=== PATIENT | female | born 1945 | race Caucasian/White ===

== ENCOUNTER → 2016-12-14 | Outpatient (CLI) | payer OTHER, MEDICARE ==
[~2016-12-14] MED LIST: APR50 PO; CHOL135C6 PO; CLON0.2T11 PO; CYAN500T PO; FLUO20CA35 PO; HYDR-5688 PO; HYDR12.56 PO; Hydrochlorothiazide PO; LEFL10TA PO; NEBI20TA2 PO; POTA20TA16 PO; PRED-301 PO; SPIR50TA2 PO; TPRSR/100 PO; TRAM-10 PO
--- NOTE | 2016-12-14 13:33 | MAMMOGRAPHY REPORT ---
BILATERAL DIGITAL SCREENING MAMMOGRAM WITH CAD: 12/14/2016 CLINICAL HISTORY: Routine screening. Patient has no complaints. TECHNIQUE: Bilateral CC and MLO views were obtained. Current study was also evaluated with a Comput er Aided Detection (CAD) system. COMPARISON: Comparison is made to exams dated: 12/11/2015 mammogram, 12/08/2013 mammogram, 12/10/2014 ma mmogram, 07/02/2011 mammogram - [facility], 01/08/2009, and 01/05/2008. BREAST COMPOSITION: There are scattered areas of fibroglandular density in both breasts. FINDINGS: There are mild to moderate vascular calcifications and diffuse benign rim calcifications a nd rodlike secretory calcifications in the breasts. No suspicious mass, architectural distortion or cluster of suspicious microcalcifications is seen. IMPRESSION: ACR BI-RADS CATEGORY 1: NEGATIVE There is no mammographic evidence of malignancy. A 1 year screening mammogram is recommended. The p atient will receive written notification of the results. Approximately 10% of breast cancers are not detected with mammography. A negative mammographic repor t should not delay biopsy if a clinically suggestive mass is present. Rena Culver M.D. ay/:12/14/2016 12:37:29 [employer] Manager: Viky NATARAJAN(Carlos Alberto)(Jan), [facility] letter sent: Normal 1/2 BI-RADS Code: ACR BI-RADS Category 1: Negative
== END | disposition home or self-care (01) ==
LOC: C.MAMM 10:24
PROVIDERS: ATTEND Family Medicine
DX: Z12.31 Encounter for screening mammogram for malignant neoplasm of breast (principal)

== ENCOUNTER → 2016-12-28 | Outpatient (CLI) | payer OTHER, MEDICARE ==
[2016-12-28 10:10] LABS: HEMATOCRIT 37.3 % (37-47); MEAN CELL VOLUME 92.3 fL (80-100); MEAN CORPUSCULAR HGB CONC 32.4 g/dl (32-36); MEAN PLATELET VOLUME 10.2 fL (7.4-10.4); PLATELET COUNT 248 K/uL (130-400); RED BLOOD COUNT 4.04 M/uL (4.2-5.4); WHITE BLOOD COUNT 6.62 K/uL (4.8-10.8)
[2016-12-28 10:56] LABS: ALT/SGPT 24 U/L (12-78); AST/SGOT 11 U/L (15-37); BLOOD UREA NITROGEN 16 mg/dl (7-18); BUN/CREATININE RATIO 17.5 (10-20); CALCIUM 8.7 mg/dl (8.5-10.1); CARBON DIOXIDE 28 mmol/L (21-32); CHLORIDE 105 mmol/L (98-107); CREATININE 0.91 mg/dl (0.60-1.20); GLUCOSE 107 mg/dl (70-99); POTASSIUM 3.4 mmol/L (3.5-5.1); SODIUM 143 mmol/L (136-145)
[2016-12-28 10:59] LABS: CHOLESTEROL 188 mg/dl (0-200); CHOLESTEROL/HDL RATIO 3.5; HDL CHOLESTEROL 54 mg/dl; PHOSPHORUS 2.4 mg/dl (2.5-4.9); TRIGLYCERIDES 474 mg/dl (0-150)
[2016-12-28 11:02] LABS: URINE TOTAL PROTEIN < 5.0 mg/dl (0-11.9)
[2016-12-28 12:25] LABS: URINE APPEARANCE CLEAR (CLEAR); URINE BILIRUBIN NEG (NEG); URINE COLOR YELLOW; URINE EPITHELIAL CELL AUTO >30 /lpf (0-5); URINE NITRITE POS (NEG); URINE SPECIFIC GRAVITY 1.006 (1.000-1.030); UROBILINOGEN NEG (NEG)
[2016-12-28 12:28] LABS: MANUAL MICROSCOPIC REQUIRED? NO; REVIEW REQ? NO
== END | disposition home or self-care (01) ==
LOC: C.LAB1850 08:59
PROVIDERS: ATTEND Internal Medicine Nephrology
DX: R80.9 Proteinuria, unspecified (principal); I12.9 Hypertensive chronic kidney disease with stage 1 through stage 4 chronic kidney disease, or unspecified chronic kidney disease; N18.3 Chronic kidney disease, stage 3 (moderate); E55.9 Vitamin D deficiency, unspecified; E78.5 Hyperlipidemia, unspecified

== ENCOUNTER 2017-03-22 10:40 | Emergency (ER) | payer OTHER, MEDICARE ==
[~2017-03-22] VITALS: Ht 170.2 cm; Wt 54.1 kg
[~2017-03-22 10:40] MED LIST changes: -HYDR-5688 PO; -HYDR12.56 PO; -POTA20TA16 PO; -PRED-301 PO; -SPIR50TA2 PO; -TPRSR/100 PO; -TRAM-10 PO
[2017-03-22 10:50] VITALS: TEMP 36.9; Ht 170.2 cm; Wt 54.1 kg
[2017-03-22] MEDS ORDERED: APR50 PO (11:10)
[2017-03-22] MEDS ORDERED: HYDR12.56 PO (11:10)
[2017-03-22] MEDS ORDERED: POTA20TA16 PO (11:11)
[2017-03-22] MEDS ORDERED: TPRSR/100 PO (11:11)
[2017-03-22] MEDS ORDERED: TRAM-10 PO (11:12)
[2017-03-22] MEDS ORDERED: SPIR50TA2 PO (11:12)
--- NOTE | 2017-03-22 13:21 | DIAGNOSTIC IMAGING REPORT ---
CT OF THE left hip CT DOSE: 191.63 mGy.cm HISTORY: Hip pain left hip pain, r/o occult fx TECHNIQUE: Multiaxial CT images of the left hip were performed and reformatted in the sagittal and coronal plane without the use of contrast. COMPARISON: None. FINDINGS: No fracture or dislocation. Soft tissues are unremarkable. Subtle cortical lobulation of the left pubic ring felt to be secondary to old posttraumatic change. A well-defined acute bony abnormality is not seen. No evidence for acetabular protrusion. IMPRESSION: Mild degenerative change. No acute bony abnormality. Electronically signed by: Manuel Velasco M.D. 03/22/2017 1:20 PM Dictated Date/Time: 03/22/2017 12:59 PM
[2017-03-22] MEDS ORDERED: HYDR-5688 PO (13:34)
--- NOTE | 2017-03-22 13:36 | EMERGENCY ROOM VISIT NOTE ---
History First contact with patient: 11:14 Chief Complaint: HIP PAIN Stated Complaint: SEVERE HIP PAIN History of Present Illness The patient is a 71 year old female who presents to the Emergency Room with complaints of persistent left hip pain. The patient states that she has had ongoing pain in her left hip for several months. She was initially seen by her primary care provider and had x-rays of the pelvis and hips in September of last year. She states these were negative. She was placed on a course of prednisone at that time and states that did help to relieve her pain. She saw her primary care provider this week due to worsening/persistent pain and was given an injection into the hip 5 days ago without relief of the pain. She was given a prescription for tramadol and states she has been taking this with little relief, though the medication does help her to sleep. She reports pain with weightbearing and has been using a cane to help her ambulate. She rates the discomfort a 10/10, worse with movement and weightbearing. She denies any pain in the back, urinary symptoms, radiation of the pain into the legs, numbness or weakness. Review of Systems A complete 10 point review of systems was reviewed with the patient with pertinent positives and negatives as per history of present illness. All else were negative. Past Medical/Surgical History Medical Problems: (1) Benign hypertension (2) Hyperlipidemia (3) Hysterectomy (4) Lyme disease (5) Psoriasis (6) Psoriatic arthritis (7) Rheumatoid arteritis Family History Diabetes mellitus Hypertension Social History Smoking Status: Never Smoker Drug Use: none Marital Status: Housing Status: lives with family Occupation Status: retired Current/Historical Medications Scheduled Hydralazine HCl (Hydralazine HCl), 100 MG PO TID Hydrochlorothiazide (Hctz), 12.5 MG PO DAILY Leflunomide (Arava), 10 MG PO DAILY/UD Metoprolol Succinate (Metoprolol Succinate ER), 100 MG PO DAILY Potassium Ext Rel (Klor-Con), 20 MEQ PO BID Prednisone (Prednisone), 5 MG PO DAILY Spironolactone (Aldactone), 50 MG PO QAM Scheduled PRN Hydrocodone/Acetaminophen 5MG/325MG (Cleveland 5MG/325MG), 1 TABLET PO Q4H PRN for Pain Tramadol (Ultram), 50-100 MG PO 4-6h PRN for Pain Allergies Coded Allergies: Fentanyl (Verified Allergy, Unknown, throat closed,itchy, 03/22/17) pt Sulfa Drugs (Verified Allergy, Unknown, 03/22/17) Physical Exam Vital Signs Date Time Temp Pulse Resp B/P Pulse Ox O2 Delivery O2 Flow Rate FiO2 03/22/17 13:50 59 20 159/73 97 03/22/17 13:25 59 20 159/73 97 03/22/17 12:00 53 20 168/70 98 03/22/17 10:50 36.9 67 18 152/76 94 Room Air Physical Exam VITALS: Vitals are noted on the nurse's note and reviewed by myself. Vital signs stable. GENERAL: This is a 71-year-old female, in no acute distress, nondiaphoretic, well-developed well-nourished. SKIN: Capillary reflex less than 2 seconds. No erythema or edema. HEART: Regular rate and rhythm without murmurs gallops or rubs. LUNGS: Clear to auscultation bilaterally without wheezes, rales or rhonchi. ABDOMEN: Soft, nontender. MUSCULOSKELETAL: There is tenderness over the left lateral hip. There is no erythema, edema or ecchymosis. Full range of motion of the hip and lower leg. Strength 5/5 in bilateral lower extremity. There is no tenderness to palpation over the lumbar spinous processes or lumbar paraspinous muscles. NEURO: Patient was alert and oriented to person place and time. Normal sensation to light and sharp touch over bilateral lower extremities. Deep tendon reflexes 2+ throughout. Medical Decision & Procedures ER Provider Diagnostic Interpretation: CT OF THE left hip FINDINGS: No fracture or dislocation. Soft tissues are unremarkable. Subtle cortical lobulation of the left pubic ring felt to be secondary to old posttraumatic change. A well-defined acute bony abnormality is not seen. No evidence for acetabular protrusion. IMPRESSION: Mild degenerative change. No acute bony abnormality. ED Course The patient was evaluated as above. Patient was reevaluated and findings discussed. The patient was given a walker. Discharge instructions were reviewed with the patient. The patient verbalized understanding of my assessment and treatment plan and was discharged home in good condition. Medical Decision Differential diagnosis includes fracture, lumbar radiculopathy, bursitis, septic joint, arthritis, among others. The patient is a 71-year-old female who presents today complaining of chronic left hip pain. There is tenderness on exam but no neuro findings, no tenderness of the lumbar spine. Patient had pelvic and hip x-rays in September 2016 which were essentially negative. CT scan was obtained of the left hip to rule out occult fracture and was read by radiology with no acute findings. The patient likely has bursitis and I do feel she should be referred to orthopedics for further evaluation and treatment. She states she has a follow-up appointment with her primary care provider this week and I recommended that she talk to them about an orthopedic referral. She was given a short course of Cleveland to take in the meantime. She will return here for worsening or new/ concerning symptoms. The patient's case was reviewed with Dr. Bradshaw, ED attending physician, who agreed with my assessment and treatment plan. Based on the patient's presentation and work up, I feel the patient is stable for outpatient treatment. The patient was educated to return to the emergency department for any worsening of their current condition or new/concerning symptoms. She will follow up with her PCP and orthopedics. Impression Primary Impression: Left hip pain Departure Information Dispostion Home / Self-Care Condition GOOD Prescriptions Hydrocodone/Acetaminophen 5MG/325MG (Cleveland 5MG/325MG) Tab 1 TABLET PO Q4H Y for Pain, #15 TAB For Initial Treatment Prov: Quita Clement .ALIRIO 03/22/17 Referrals Alexandra Wilkes MD (PCP) Osorio Ibrahim, DO Patient Instructions My [facility] Additional Instructions You have been treated in the Emergency Department for left hip Pain. You have been prescribed Cleveland to be used for pain control. This is a narcotic medication. You cannot drive or consume alcohol while on this medicine. This medicine should only be used for pain that cannot be controlled with over-the- counter pain medicines. Take one half to one tablet every 4-6 hours as needed for the pain. You should schedule a follow-up appointment in 2-3 days with your Primary Care Provider for further evaluation and treatment of your pain. They may refer you to an rn orthopedic. Return to the Emergency Department if your current symptoms worsen despite treatment course outlined above, or if you develop any of the following symptoms : intractable pain despite aforementioned treatment course, loss of control of your bowel or bladder, numbness or tingling in your groin, or development of a fever.
[2017-03-22 13:50] VITALS: BP 159/73; PULSE 59; O2SAT 97
[2017-03-22] MEDS ORDERED: PRED-301 PO (14:56)
== END 2017-03-22 13:50 | disposition home or self-care (01) ==
LOC: C.EDB 10:42
DX: M25.552 Pain in left hip (principal); I10 Essential (primary) hypertension; E78.5 Hyperlipidemia, unspecified; Z90.710 Acquired absence of both cervix and uterus; L40.9 Psoriasis, unspecified; A69.20 Lyme disease, unspecified; M06.9 Rheumatoid arthritis, unspecified; Z83.3 Family history of diabetes mellitus; Z82.49 Family history of ischemic heart disease and other diseases of the circulatory system; Z79.899 Other long term (current) drug therapy

== ENCOUNTER → 2017-05-13 | Outpatient (CLI) | payer OTHER, MEDICARE ==
[~2017-05-13] MED LIST changes: -APR50 PO; -CHOL135C6 PO; -CLON0.2T11 PO; -CYAN500T PO; -FLUO20CA35 PO; +HYDR12.56 PO; -Hydrochlorothiazide PO; -NEBI20TA2 PO; +POTA20TA16 PO; +PRED-301 PO; +TPRSR/100 PO
[2017-05-13 12:19] LABS: BASO % 0.6 %; BASO ABS # 0.05 K/uL (0-0.2); COMPLETE YES; HEMATOCRIT 40.2 % (37-47); IG% 0.3 %; LYMPH % 8.2 %; LYMPH ABS # 0.72 K/uL (1.2-3.4); MEAN CELL VOLUME 95.5 fL (80-100); MEAN CORPUSCULAR HEMOGLOBIN 30.2 pg (25-34); MEAN CORPUSCULAR HGB CONC 31.6 g/dl (32-36); MEAN PLATELET VOLUME 10.5 fL (7.4-10.4); MONO % 6.2 %; NEUT % 84.7 %; PLATELET COUNT 345 K/uL (130-400); RED BLOOD COUNT 4.21 M/uL (4.2-5.4); WHITE BLOOD COUNT 8.77 K/uL (4.8-10.8)
[2017-05-13 13:01] LABS: ALT/SGPT 34 U/L (12-78); AST/SGOT 23 U/L (15-37); CREATININE 0.86 mg/dl (0.60-1.20)
[2017-05-13 13:04] LABS: ALKALINE PHOSPHATASE 80 U/L (45-117)
== END | disposition home or self-care (01) ==
LOC: C.LAB1850 10:57
PROVIDERS: ATTEND Physician Assistant
DX: Z51.81 Encounter for therapeutic drug level monitoring (principal); Z79.899 Other long term (current) drug therapy

== ENCOUNTER → 2017-06-08 | Outpatient (CLI) | payer OTHER, MEDICARE ==
[2017-06-08 17:45] LABS: BASO % 0.3 %; BASO ABS # 0.02 K/uL (0-0.2); HEMATOCRIT 39.3 % (37-47); IG% 0.3 %; LYMPH ABS # 0.67 K/uL (1.2-3.4); MEAN CELL VOLUME 94.7 fL (80-100); MEAN CORPUSCULAR HEMOGLOBIN 30.1 pg (25-34); MONO % 7.3 %; NEUT % 83.1 %; PLATELET COUNT 318 K/uL (130-400); RED BLOOD COUNT 4.15 M/uL (4.2-5.4); WHITE BLOOD COUNT 7.41 K/uL (4.8-10.8)
[2017-06-08 17:59] LABS: URINE APPEARANCE CLEAR (CLEAR); URINE BILIRUBIN NEG (NEG); URINE COLOR YELLOW; URINE NITRITE POS (NEG); URINE SPECIFIC GRAVITY 1.012 (1.000-1.030); UROBILINOGEN NEG (NEG)
[2017-06-08 18:03] LABS: BLOOD UREA NITROGEN 21 mg/dl (7-18); BUN/CREATININE RATIO 18.8 (10-20); CALCIUM 9.3 mg/dl (8.5-10.1); CARBON DIOXIDE 29 mmol/L (21-32); CHLORIDE 105 mmol/L (98-107); GLUCOSE 134 mg/dl (70-99); SODIUM 139 mmol/L (136-145)
[2017-06-08 18:04] LABS: PHOSPHORUS 2.5 mg/dl (2.5-4.9); URINE PROTIEN/CREAT RATIO 0.1 (0-0.2); URINE TOTAL PROTEIN 7.3 mg/dl (0-11.9)
[2017-06-08 18:24] LABS: MANUAL MICROSCOPIC REQUIRED? NO; REVIEW REQ? NO
[2017-06-08 18:59] LABS: COMPLETE YES; MEAN CORPUSCULAR HGB CONC 31.8 g/dl (32-36)
== END | disposition home or self-care (01) ==
LOC: C.LAB1850 17:26
PROVIDERS: ATTEND Physician Assistant
DX: Z01.818 Encounter for other preprocedural examination (principal); R80.9 Proteinuria, unspecified; I12.9 Hypertensive chronic kidney disease with stage 1 through stage 4 chronic kidney disease, or unspecified chronic kidney disease; N18.3 Chronic kidney disease, stage 3 (moderate); E55.9 Vitamin D deficiency, unspecified

== ENCOUNTER → 2017-06-21 | Outpatient (CLI) | payer OTHER, MEDICARE ==
[2017-06-21 12:37] LABS: BASO % 0.4 %; BASO ABS # 0.04 K/uL (0-0.2); COMPLETE YES; IG% 0.3 %; LYMPH % 8.5 %; LYMPH ABS # 0.87 K/uL (1.2-3.4); MEAN CELL VOLUME 95.2 fL (80-100); MEAN CORPUSCULAR HEMOGLOBIN 30.1 pg (25-34); MEAN CORPUSCULAR HGB CONC 31.6 g/dl (32-36); MEAN PLATELET VOLUME 10.7 fL (7.4-10.4); MONO % 8.8 %; PLATELET COUNT 305 K/uL (130-400); RED BLOOD COUNT 3.99 M/uL (4.2-5.4); WHITE BLOOD COUNT 10.22 K/uL (4.8-10.8)
== END | disposition home or self-care (01) ==
LOC: C.LAB1850 10:33
PROVIDERS: ATTEND Anesthesiology
DX: Z01.812 Encounter for preprocedural laboratory examination (principal)

== ENCOUNTER → 2017-08-10 | Outpatient (CLI) | payer OTHER, MEDICARE ==
--- NOTE | 2017-08-10 11:44 | DIAGNOSTIC IMAGING REPORT ---
CHEST 2 VIEWS ROUTINE CLINICAL HISTORY: 71 years-old Female presenting with R06.02 Shortness of [id number]. TECHNIQUE: PA and lateral views of the chest were obtained. COMPARISON: 05/28/2015. FINDINGS: Atherosclerosis of aortic arch. Chronic silhouette normal in size. Lungs and pleural spaces clear. Degenerative changes of the thoracic spine. Upper abdomen normal. IMPRESSION: 1. No acute cardiopulmonary disease. Electronically signed by: Kendall Al M.D. 08/10/2017 11:42 AM Dictated Date/Time: 08/10/2017 11:42 AM
== END | disposition home or self-care (01) ==
LOC: C.RAD1850 10:56
PROVIDERS: ATTEND Neuromusculoskeletal Medicine & OMM
DX: R53.83 Other fatigue (principal); R06.02 Shortness of breath

== ENCOUNTER → 2017-10-27 | Outpatient (CLI) | payer OTHER, MEDICARE ==
[2017-10-27 17:40] LABS: BASO ABS # 0.06 K/uL (0-0.2); COMPLETE YES; HEMATOCRIT 39.3 % (37-47); IG% 0.3 %; LYMPH % 16.5 %; LYMPH ABS # 0.95 K/uL (1.2-3.4); MEAN CELL VOLUME 93.8 fL (80-100); MEAN CORPUSCULAR HEMOGLOBIN 30.5 pg (25-34); MEAN CORPUSCULAR HGB CONC 32.6 g/dl (32-36); MEAN PLATELET VOLUME 10.2 fL (7.4-10.4); MONO % 14.9 %; NEUT % 67.3 %; PLATELET COUNT 240 K/uL (130-400); RED BLOOD COUNT 4.19 M/uL (4.2-5.4); WHITE BLOOD COUNT 5.76 K/uL (4.8-10.8)
[2017-10-27 18:10] LABS: ALT/SGPT 31 U/L (12-78); BLOOD UREA NITROGEN 15 mg/dl (7-18); BUN/CREATININE RATIO 17.4 (10-20); CALCIUM 9.2 mg/dl (8.5-10.1); CARBON DIOXIDE 26 mmol/L (21-32); CHLORIDE 103 mmol/L (98-107); CREATININE 0.84 mg/dl (0.60-1.20); GLUCOSE 110 mg/dl (70-99); POTASSIUM 3.5 mmol/L (3.5-5.1); SODIUM 137 mmol/L (136-145)
[2017-10-27 18:21] LABS: ALB/GLOB RATIO 0.8 (0.9-2); ALKALINE PHOSPHATASE 88 U/L (45-117); AST/SGOT 23 U/L (15-37); THYROID STIMULATING HORMONE 0.755 uIu/ml (0.300-4.500)
[2017-10-28 06:40] LABS: ESTIMATED AVERAGE GLUCOSE 105 mg/dl; HA1C FLAG Normal (Normal)
[2017-10-28 11:46] LABS: URINE APPEARANCE CLEAR (CLEAR); URINE BILIRUBIN NEG (NEG); URINE COLOR YELLOW; URINE NITRITE POS (NEG); URINE SPECIFIC GRAVITY 1.013 (1.000-1.030); UROBILINOGEN NEG (NEG)
[2017-10-28 11:49] LABS: MANUAL MICROSCOPIC REQUIRED? NO; REVIEW REQ? NO
== END | disposition home or self-care (01) ==
LOC: C.LAB1850 17:10
PROVIDERS: ATTEND Nurse Practitioner Adult Health
DX: R35.0 Frequency of micturition (principal); R06.02 Shortness of breath; R73.9 Hyperglycemia, unspecified; I49.9 Cardiac arrhythmia, unspecified

== ENCOUNTER → 2017-10-28 | Outpatient (CLI) | payer OTHER, MEDICARE ==
[~2017-10-28] MED LIST changes: +AZIT-57 PO; +CEPH500C2 PO; +HYDR-4717 PO; +IBUP-1105 PO; +LPT20 PO; +RBTUDL5 PO; +VNTHFA/IN INH
--- NOTE | 2017-10-28 09:07 | DIAGNOSTIC IMAGING REPORT ---
CHEST 2 VIEWS ROUTINE CLINICAL HISTORY: R05 [id number] COMPARISON STUDY: 08/10/2017 FINDINGS: The cardiac and mediastinal contours are normal. There is no evidence of focal pulmonary consolidation. There is no evidence of failure. No pleural effusions are visualized.[ IMPRESSION: No active disease in the chest. Electronically signed by: Dorian Van M.D. 10/28/2017 9:06 AM Dictated Date/Time: 10/28/2017 9:05 AM
== END | disposition home or self-care (01) ==
LOC: C.RAD1850 08:29
PROVIDERS: ATTEND Nurse Practitioner Adult Health
DX: R05 Cough (principal)

== ENCOUNTER → 2017-10-28 | Outpatient (CLI) | payer OTHER, MEDICARE ==
[~2017-10-28] MED LIST changes: +OPTIRAY 320 IV PRN; +POTA-639 PO; -POTA20TA16 PO
--- NOTE | 2017-10-28 16:24 | DIAGNOSTIC IMAGING REPORT ---
(CHEST FOR PE) ANGIO WITH CLINICAL HISTORY: 71 years-old Female presenting with shortness of breath, elevated d-dimer, left-sided chest pain, cough, clinical concern for pulmonary embolus. TECHNIQUE: Multidetector CT angiography of the chest was performed after administration of intravenous contrast. 3-D volumetric and/or maximum intensity projection (MIP) images were subsequently reconstructed for review. IV contrast: 84 mL of Optiray 320. A dose lowering technique was used consistent with the principles of ALARA (as low as reasonably achievable). COMPARISON: Chest x-ray performed earlier the same day. CT DOSE (mGy.cm): The estimated cumulative dose is 271.11 mGy.cm. FINDINGS: Refinisher topogram: Unremarkable. Pulmonary vasculature: The study is adequate for assessment of the pulmonary vascular tree. No filling defect within the pulmonary arteries to suggest embolus. Main pulmonary artery is not enlarged. No flattening of the interventricular septum. No intracardiac intracardiac filling defect. No reflux of contrast into the hepatic veins. Remaining chest: On soft tissue windows, normal thyroid and thoracic inlet. No axillary, supraclavicular, hilar, or mediastinal lymphadenopathy. Atherosclerosis of the aorta. Mild multichamber enlargement of the heart. Trace coronary artery calcification. No pericardial or pleural effusion. Hepatic steatosis. On lung windows, minimal biapical reticular change likely scarring. Dependent opacities likely atelectasis. Respiratory motion artifact at the lung bases somewhat limits evaluation of lung parenchyma. Minimal groundglass opacity in the lingula may also represent atelectasis. Large airways patent. On bone windows, degenerative changes of the spine. Osteopenia. IMPRESSION: 1. No evidence of pulmonary embolus. No acute intrathoracic pathology. Dependent opacities likely atelectasis. 2. Mild cardiomegaly. 3. Hepatic steatosis. 4. Osteopenia. Electronically signed by: Kendall Al M.D. 10/28/2017 4:22 PM Dictated Date/Time: 10/28/2017 4:17 PM
== END | disposition home or self-care (01) ==
LOC: C.CTS 16:00
PROVIDERS: ATTEND Family Medicine
DX: R06.02 Shortness of breath (principal); R79.89 Other specified abnormal findings of blood chemistry; I51.7 Cardiomegaly; K76.0 Fatty (change of) liver, not elsewhere classified; M85.88 Other specified disorders of bone density and structure, other site; R05 Cough

== ENCOUNTER 2017-10-29 23:42 | Observation (INO) | payer OTHER, MEDICARE ==
[~2017-10-29] VITALS: Ht 170.2 cm; Wt 67.8 kg
[~2017-10-29 23:42] MED LIST changes: -AZIT-57 PO; -CEPH500C2 PO; -HYDR-4717 PO; -IBUP-1105 PO; -LPT20 PO; -OPTIRAY 320 IV PRN; -POTA-639 PO; +POTA20TA16 PO; -RBTUDL5 PO; -VNTHFA/IN INH
[2017-10-30] MEDS ORDERED: ALBUT/IPRATROP 3MG/0.5MG NEB 3 ML VIAL INH STA (00:07)
[2017-10-30 00:32] LABS: BASO % 0.7 %; BASO ABS # 0.06 K/uL (0-0.2); HEMATOCRIT 35.4 % (37-47); HEMOGLOBIN 11.8 g/dL (12.0-16.0); IG# 0.02 K/uL (0.00-0.02); MEAN CELL VOLUME 91.9 fL (80-100); MEAN CORPUSCULAR HEMOGLOBIN 30.6 pg (25-34); MEAN CORPUSCULAR HGB CONC 33.3 g/dl (32-36); MEAN PLATELET VOLUME 9.9 fL (7.4-10.4); MONO % 13.4 %; NEUT % 66.7 %; NEUT ABS # 5.99 K/uL (1.4-6.5); PLATELET COUNT 215 K/uL (130-400); RED CELL DISTRIBUTION WIDTH CV 14.2 % (11.5-14.5); RED CELL DISTRIBUTION WIDTH SD 47.8 fL (36.4-46.3); WHITE BLOOD COUNT 8.97 K/uL (4.8-10.8)
[2017-10-30 00:49] LABS: ALBUMIN 2.8 gm/dl (3.4-5.0); ALT/SGPT 36 U/L (12-78); AST/SGOT 34 U/L (15-37); BLOOD UREA NITROGEN 21 mg/dl (7-18); CALCIUM 8.8 mg/dl (8.5-10.1); CARBON DIOXIDE 24 mmol/L (21-32); GLUCOSE 100 mg/dl (70-99); LIPASE 116 U/L (73-393); POTASSIUM 2.9 mmol/L (3.5-5.1); SODIUM 137 mmol/L (136-145)
[2017-10-30 01:01] LABS: ALKALINE PHOSPHATASE 87 U/L (45-117); TOTAL PROTEIN 6.9 gm/dl (6.4-8.2)
[2017-10-30] MEDS ORDERED: POTASSIUM CHLORIDE 10 MEQ TABCR PO STA (01:13)
[2017-10-30] MEDS ORDERED: MAGNESIUM SULFATE 1GM / D5W 1 GM BAG IV STA (01:13)
[2017-10-30] MEDS ORDERED: HYDR-4717 PO (01:30)
[2017-10-30] MEDS ORDERED: CEPH500C2 PO (01:35)
[2017-10-30] MEDS ORDERED: NITROGLYCERIN 0.4 MG SL PER TAB CHARGE SL STA ×2 (01:43→02:02)
[2017-10-30] MEDS ORDERED: MAGNESIUM HYDROXIDE SUSP 30 ML UDC PO PRN (02:15)
[2017-10-30] MEDS ORDERED: NITROGLYCERIN 0.4 MG SL PER TAB CHARGE SL PRN (02:15)
[2017-10-30] MEDS ORDERED: ACETAMINOPHEN 325 MG TAB PO PRN (02:15)
[2017-10-30] MEDS ORDERED: ONDANSETRON INJ 2 MG/ML 2 ML VIAL IV PRN (02:15)
[2017-10-30] MEDS ORDERED: ALUMINUM/MAGNESIUM/SIMETH (MAALOX MAX) 30 ML UDC PO PRN (02:15)
[2017-10-30] MEDS ORDERED: MoRPHine SULFATE 2 MG/ML CARP IV PRN (02:15)
[2017-10-30] MEDS ORDERED: IV FLUIDS COMPLETED PRN (03:00)
[2017-10-30 03:14] VITALS: BP 169/72; PULSE 72; TEMP 36.7; O2SAT 97; Ht 170.2 cm; Wt 67.8 kg
--- NOTE | 2017-10-30 03:23 | History and Physical ---
History & Physical Date & Time of Service: Oct 30, 2017 at 03:01 Chief Complaint: Shortness Of Breath Primary Care Physician: Alexandra Wilkes MD History of Present Illness Source: patient 71 y/o F Hx Psoriatic arthritis, HTN, HPL. Presents with persistent SOB and intermittent central CP for 1-2 weeks. She was instructed to attend the ER by her primary MD earlier in the day. She denies any radiation of her pain, nausea /vomiting or diaphoresis. The pt's pain resolved entirely with a single SL NTG and she reports improvement in her SOB as well. She states she had a stress test 2 years ago which showed a "valve problem" and was otherwise normal. Past Medical/Surgical History 1) HTN 2) HPL 3) Psoriatic arhtritis 4) Lyme disease 5) Sciatica - received Lumbar steroid injections 06/24 with excellent results 6) Renal artey stenosis - B/L stents placed in 2013 Family History Diabetes mellitus Hypertension Social History Smoking Status: Never Smoker Drug Use: none Marital Status: Housing status: lives with family Occupational Status: retired Multi-Drug Resistant Organisms History of MDRO: No Allergies Coded Allergies: Fentanyl (Verified Allergy, Unknown, throat closed,itchy, 06/09/17) pt Sulfa Drugs (Verified Allergy, Unknown, 06/09/17) Home Medications Scheduled Cephalexin Monohydrate (Keflex), 500 MG PO BID Hydralazine Hcl (Apresoline), 100 MG PO TID Hydrochlorothiazide (Hctz), 12.5 MG PO DAILY Leflunomide (Arava), 10 MG PO DAILY/UD Metoprolol Succinate (Metoprolol Succinate ER), 100 MG PO DAILY Potassium Ext Rel (Klor-Con), 20 MEQ PO BID Prednisone (Prednisone), 5 MG PO DAILY Review of Systems Constitutional: No fever, No chills, No sweats Eyes: No worsening of vision ENT: No hearing loss, No unusual epistaxis, No nasal symptoms Respiratory: + shortness of breath, + dyspnea on exertion, + dyspnea at rest, No cough, No sputum, No wheezing Cardiovascular: + chest pain, No orthopnea, No PND Abdomen: No pain, No nausea, No vomiting Musculoskeletal: + problem reported (Chronic low back pain), No joint pain Genitourinary - Female: No dysuria, No urinary frequency, No urinary urgency Neurologic: No memory loss, No paralysis, No weakness Psychiatric: No depression symptoms Endocrine: No fatigue Hematologic / Lymphatic: No abnormal bleeding/bruising Integumentary: No rash Allergic / Immunologic: No environmental allergies Physical Exam Vital Signs Date Time Temp Pulse Resp B/P (MAP) Pulse Ox O2 Delivery O2 Flow Rate FiO2 10/30/17 02:13 72 20 133/57 92 Room Air 10/30/17 01:57 69 20 135/48 94 Room Air 10/30/17 01:48 74 20 155/70 94 Room Air 10/30/17 00:42 75 16 91 Room Air 10/30/17 00:36 140/79 10/30/17 00:21 73 10/30/17 00:21 98 Room Air 10/30/17 00:18 Room Air 10/29/17 23:51 36.8 79 22 134/77 95 Room Air General Appearance: WD/WN, no apparent distress Head: normocephalic Eyes: normal inspection ENT: normal ENT inspection, hearing grossly normal Neck: supple, no JVD Respiratory/Chest: chest non-tender, lungs clear, normal breath sounds Cardiovascular: regular rate, rhythm, no edema, no gallop Abdomen/GI: normal bowel sounds, non tender, soft Back: normal inspection, no CVA tenderness Extremities/Musculoskelatal: normal inspection, no calf tenderness, normal capillary refill, no pedal edema, normal range of motion 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, no motor/sensory deficits, alert, oriented x 3 Skin: normal color, warm/dry, no rash Diagnostics Laboratory Results Results Past 24 Hours Test 10/30/17 00:22 10/30/17 00:26 Range/Units White Blood Count 8.97 4.8-10.8 K/uL Red Blood Count 3.85 4.2-5.4 M/uL Hemoglobin 11.8 12.0-16.0 g/dL Hematocrit 35.4 37-47 % Mean Corpuscular Volume 91.9 80-100 fL Mean Corpuscular Hemoglobin 30.6 25-34 pg Mean Corpuscular Hemoglobin Concent 33.3 32-36 g/dl Platelet Count 215 130-400 K/uL Mean Platelet Volume 9.9 7.4-10.4 fL Neutrophils (%) (Auto) 66.7 % Lymphocytes (%) (Auto) 19.0 % Monocytes (%) (Auto) 13.4 % Eosinophils (%) (Auto) 0.0 % Basophils (%) (Auto) 0.7 % Neutrophils # (Auto) 5.99 1.4-6.5 K/uL Lymphocytes # (Auto) 1.70 1.2-3.4 K/uL Monocytes # (Auto) 1.20 0.11-0.59 K/uL Eosinophils # (Auto) 0.00 0-0.5 K/uL Basophils # (Auto) 0.06 0-0.2 K/uL RDW Standard Deviation 47.8 36.4-46.3 fL RDW Coefficient of Variation 14.2 11.5-14.5 % Immature Granulocyte % (Auto) 0.2 % Immature Granulocyte # (Auto) 0.02 0.00-0.02 K/uL Sodium Level 137 136-145 mmol/L Potassium Level 2.9 3.5-5.1 mmol/L Chloride Level 104 98-107 mmol/L Carbon Dioxide Level 24 21-32 mmol/L Anion Gap 9.0 3-11 mmol/L Blood Urea Nitrogen 21 7-18 mg/dl Creatinine 1.10 0.60-1.20 mg/dl Est Creatinine Clear Calc Drug Dose 44.3 ml/min Estimated GFR () 57.7 Estimated GFR (Non- 49.8 BUN/Creatinine Ratio 19.3 10-20 Random Glucose 100 70-99 mg/dl Calcium Level 8.8 8.5-10.1 mg/dl Magnesium Level 1.7 1.8-2.4 mg/dl Total Bilirubin 0.3 0.2-1 mg/dl Direct Bilirubin < 0.1 0-0.2 mg/dl Aspartate Amino Transf (AST/SGOT) 34 15-37 U/L Alanine Aminotransferase (ALT/SGPT) 36 12-78 U/L Alkaline Phosphatase 87 45-117 U/L Total Protein 6.9 6.4-8.2 gm/dl Albumin 2.8 3.4-5.0 gm/dl Lipase 116 73-393 U/L Thyroid Stimulating Hormone (TSH) 1.020 0.300-4.500 uIu/ml Bedside Troponin I < 0.030 0-0.045 ng/ml CXR normal EKG NSR - T wave flattening in inferior and lat leads Impression Assessment and Plan 71 y/o F Hx Psoriatic arthritis, HTN, HPL. Presents with persistent SOB and intermittent central CP for 1-2 weeks. She was instructed to attend the ER by her primary MD earlier in the day. She denies any radiation of her pain, nausea /vomiting or diaphoresis. The pt's pain resolved entirely with a single SL NTG and she reports improvement in her SOB as well. She states she had a stress test 2 years ago which showed a "valve problem" and was otherwise normal. 1) CP/SOB - she has several cardiac risk factors and possibly an abnormal EKG which is pending repeat. Additionally, she reports complete resolution with NTG. We will assign her to telemetry and obtain serial enzymes. We will request that her electric operator see her to determine if additional stress testing would be merited at this time. An echo has been ordered as she does state she had a "valve problem". She will be placed on ASA and a Statin and continue Metoprolol. She is not currently tachycardic and does not have 02 demands. We cannot exclude PE from the diagnosis due to her history. A D Dimer is ordered 2) Psoriatic arthritis - she is prescribed Leflunomide and is in the process of transitioning to Cimzia. She receives 5mg prednisone daily as well. 3) HTN - has been difficult to control - will remain on Metoprolol, HCTZ, Hydralazine. 4) HPL - listed in chart - not treated - may be sensitive to Statins. Full code - Heparin prophylaxis Total time for this admit including review of labs, meds, imaging, EKG - discussion with pt and ER attending - 35 min Level of Care Telemetry Resuscitation Status FULL RESUSCITATION VTE Prophylaxis VTE Risk Assessment Done? Y/N: Yes Risk Level: Moderate Given or contraindicated: Unfractionated heparin SQ
--- NOTE | 2017-10-30 03:41 | EMERGENCY ROOM VISIT NOTE ---
History First contact with patient: 23:55 Chief Complaint: SHORTNESS OF BREATH Stated Complaint: CHEST PAIN, SHORTNESS OF BREATH Nursing Triage Summary: Pt states she has had SOB x 2 months or longer. Pt also having upper abdomenal pain. Pt has been following up with her PCP for her sx's and he recommended she come to ED for further evaluation. History of Present Illness The patient is a 71 year old female who presents to the Emergency Room with complaints of increasing dyspnea on exertion for the past few weeks who has seen the family care doctor and had a negative CTA a few days ago and unchanged EKG per patient. Patient has a scheduled echo on November [address] Qureshi. No recent stress test or echo. No prior heart disease. Patient does not smoke. Patient states the past several days she's had intermittent chest pain throughout her mid chest. Nothing makes it better or worse. Described as tightness. It does not radiate. Patient denies fever, chills, diaphoresis, productive cough, abdominal pain, vomiting, diarrhea, leg pain or swelling, recent travel. No prior heart disease. Patient's family care DrDimitrios advised her to go the ER for ongoing symptoms. Review of Systems See HPI for pertinent positives & negatives. A total of 10 systems reviewed and were otherwise negative. Past Medical/Surgical History Medical Problems: (1) Benign hypertension (2) Chest pain (3) Hyperlipidemia (4) Hysterectomy (5) Lyme disease (6) Psoriasis (7) Psoriatic arthritis (8) Rheumatoid arteritis (9) SOB (shortness of breath) Family History Diabetes mellitus Hypertension Social History Smoking Status: Never Smoker Smokeless Tobacco Use: No Drug Use: none Marital Status: Housing Status: lives with family Occupation Status: retired Current/Historical Medications Scheduled Cephalexin Monohydrate (Keflex), 500 MG PO BID Hydralazine Hcl (Apresoline), 100 MG PO TID Hydrochlorothiazide (Hctz), 12.5 MG PO DAILY Leflunomide (Arava), 10 MG PO DAILY/UD Metoprolol Succinate (Metoprolol Succinate ER), 100 MG PO DAILY Potassium Ext Rel (Klor-Con), 20 MEQ PO BID Prednisone (Prednisone), 5 MG PO DAILY Physical Exam Vital Signs Date Time Temp Pulse Resp B/P (MAP) Pulse Ox O2 Delivery O2 Flow Rate FiO2 10/30/17 02:13 72 20 133/57 92 Room Air 10/30/17 01:57 69 20 135/48 94 Room Air 10/30/17 01:48 74 20 155/70 94 Room Air 10/30/17 00:42 75 16 91 Room Air 10/30/17 00:36 140/79 10/30/17 00:21 73 10/30/17 00:21 98 Room Air 10/30/17 00:18 Room Air 10/29/17 23:51 36.8 79 22 134/77 95 Room Air Physical Exam VITALS: Vitals are noted on the nurse's note and reviewed by myself. Vital signs stable. GENERAL: Pleasant female, in no acute distress, nondiaphoretic, well-developed well-nourished. SKIN: The skin was without rashes, erythema, edema, or bruising. There is no tenting of the skin. Capillary reflex less than 2 seconds. HEAD: Normocephalic atraumatic. EARS: External auditory canals clear, tympanic membranes pearly hamlin without erythema or effusion bilaterally. EYES: Pupils equal round and reactive to light and accommodation. Conjunctivae without injection, sclerae without icterus. Extraocular movements intact. NOSE: Patent, turbinates without inflammation or discharge. MOUTH: Mucous membranes moist. Pharynx without erythema or exudate. Uvula midline. Airway patent. Tongue does not deviate. NECK: Supple without nuchal rigidity. No lymphadenopathy. No thyromegaly. Cervical spine is nontender. No JVD. HEART: Regular rate and rhythm LUNGS: Clear to auscultation bilaterally without wheezes, rales or rhonchi. No dullness to percussion. No retractions or accessory muscle use. ABDOMEN: Positive bowel sounds x 4. Normal tympanic percussion. Soft, nontender, without masses or organomegaly. Kelly sign negative. No guarding or rebound tenderness. MUSCULOSKELETAL: No muscle atrophy, erythema, or edema noted. NEURO: Patient was alert and oriented to person place and time. Normal sensation to light and sharp touch. No focal neurological deficits. Medical Decision & Procedures Laboratory Results 10/30/17 00:22 Red Blood Count 3.85, Mean Corpuscular Volume 91.9, Mean Corpuscular Hemoglobin 30.6, Mean Corpuscular Hemoglobin Concent 33.3, Mean Platelet Volume 9.9, Neutrophils (%) (Auto) 66.7, Lymphocytes (%) (Auto) 19.0, Monocytes (%) (Auto) 13.4, Eosinophils (%) (Auto) 0.0, Basophils (%) (Auto) 0.7, Neutrophils # (Auto ) 5.99, Lymphocytes # (Auto) 1.70, Monocytes # (Auto) 1.20, Eosinophils # (Auto ) 0.00, Basophils # (Auto) 0.06 10/30/17 00:22 Test 10/30/17 00:22 10/30/17 00:26 White Blood Count 8.97 K/uL (4.8-10.8) Red Blood Count 3.85 M/uL (4.2-5.4) Hemoglobin 11.8 g/dL (12.0-16.0) Hematocrit 35.4 % (37-47) Mean Corpuscular Volume 91.9 fL (80-100) Mean Corpuscular Hemoglobin 30.6 pg (25-34) Mean Corpuscular Hemoglobin Concent 33.3 g/dl (32-36) Platelet Count 215 K/uL (130-400) Mean Platelet Volume 9.9 fL (7.4-10.4) Neutrophils (%) (Auto) 66.7 % Lymphocytes (%) (Auto) 19.0 % Monocytes (%) (Auto) 13.4 % Eosinophils (%) (Auto) 0.0 % Basophils (%) (Auto) 0.7 % Neutrophils # (Auto) 5.99 K/uL (1.4-6.5) Lymphocytes # (Auto) 1.70 K/uL (1.2-3.4) Monocytes # (Auto) 1.20 K/uL (0.11-0.59) Eosinophils # (Auto) 0.00 K/uL (0-0.5) Basophils # (Auto) 0.06 K/uL (0-0.2) RDW Standard Deviation 47.8 fL (36.4-46.3) RDW Coefficient of Variation 14.2 % (11.5-14.5) Immature Granulocyte % (Auto) 0.2 % Immature Granulocyte # (Auto) 0.02 K/uL (0.00-0.02) Anion Gap 9.0 mmol/L (3-11) Est Creatinine Clear Calc Drug Dose 44.3 ml/min Estimated GFR () 57.7 Estimated GFR (Non- 49.8 BUN/Creatinine Ratio 19.3 (10-20) Calcium Level 8.8 mg/dl (8.5-10.1) Magnesium Level 1.7 mg/dl (1.8-2.4) Total Bilirubin 0.3 mg/dl (0.2-1) Direct Bilirubin < 0.1 mg/dl (0-0.2) Aspartate Amino Transf (AST/SGOT) 34 U/L (15-37) Alanine Aminotransferase (ALT/SGPT) 36 U/L (12-78) Alkaline Phosphatase 87 U/L (45-117) Total Protein 6.9 gm/dl (6.4-8.2) Albumin 2.8 gm/dl (3.4-5.0) Lipase 116 U/L (73-393) Thyroid Stimulating Hormone (TSH) 1.020 uIu/ml (0.300-4.500) Bedside Troponin I < 0.030 ng/ml (0-0.045) Medications Administered Medications (Trade) Dose Ordered Sig/Andrea Route Start Time Stop Time Status Last Admin Dose Admin Albuterol/ Ipratropium (Duoneb) 3 ml NOW STAT INH 10/30/17 00:07 10/30/17 00:08 DC 10/30/17 00:21 3 ML Potassium Chloride (Klor-Con M10) 40 meq NOW STAT PO 10/30/17 01:13 10/30/17 01:15 DC 10/30/17 01:33 40 MEQ Magnesium Sulfate (Magnesium Sulfate) 1 gm NOW STAT IV 10/30/17 01:13 10/30/17 01:15 DC 10/30/17 01:33 1 GM Nitroglycerin (Nitrostat Tab) 0.4 mg NOW STAT SL 10/30/17 01:43 10/30/17 01:44 DC 10/30/17 01:47 0.4 MG Nitroglycerin (Nitrostat Tab) 0.4 mg NOW STAT SL 10/30/17 02:02 10/30/17 02:04 DC 10/30/17 02:06 0.4 MG ED Course Prior records/ancillary studies reviewed. Triage Nursing notes reviewed. Additional history obtained from family The patient's history was concerning for dyspnea and chest pain. Differential diagnosis: Etiologies such as cardiac ischemia, aortic dissection, pulmonary embolism, pneumonia, pneumothorax, musculoskeletal, infections, pericarditis, myocarditis , esophageal rupture, gastrointestinal, as well as others were entertained. Physical examination: As above. ER treatment provided: Nebulizer, Nitro On reassessment the patient felt better. Diagnostic interpretation by me: The electrocardiogram was normal sinus, normal intervals, minimal ST depression in V5 and V6, rate of 75. Impression normal sinus rhythm with minimal ST depression in the lateral leads unchanged from prior EKG from 2013 per chart review and interpret by myself. Repeat EKG after nitroglycerin shows improvement of the depression in the lateral leads interpreted by myself. The labs revealed negative troponin. Mild anemia Imaging studies: Chest x-ray with no acute consolidation, pneumothorax or free air per my interpretation (CHEST FOR PE) ANGIO WITH CLINICAL HISTORY: 71 years-old Female presenting with shortness of breath, elevated d-dimer, left-sided chest pain, cough, clinical concern for pulmonary embolus. TECHNIQUE: Multidetector CT angiography of the chest was performed after administration of intravenous contrast. 3-D volumetric and/or maximum intensity projection (MIP) images were subsequently reconstructed for review. IV contrast: 84 mL of Optiray 320. A dose lowering technique was used consistent with the principles of ALARA (as low as reasonably achievable). COMPARISON: Chest x-ray performed earlier the same day. CT DOSE (mGy.cm): The estimated cumulative dose is 271.11 mGy.cm. FINDINGS: [place] Hand topogram: Unremarkable. Pulmonary vasculature: The study is adequate for assessment of the pulmonary vascular tree. No filling defect within the pulmonary arteries to suggest embolus. Main pulmonary artery is not enlarged. No flattening of the interventricular septum. No intracardiac intracardiac filling defect. No reflux of contrast into the hepatic veins. Remaining chest: On soft tissue windows, normal thyroid and thoracic inlet. No axillary, supraclavicular, hilar, or mediastinal lymphadenopathy. Atherosclerosis of the aorta. Mild multichamber enlargement of the heart. Trace coronary artery calcification. No pericardial or pleural effusion. Hepatic steatosis. On lung windows, minimal biapical reticular change likely scarring. Dependent opacities likely atelectasis. Respiratory motion artifact at the lung bases somewhat limits evaluation of lung parenchyma. Minimal groundglass opacity in the lingula may also represent atelectasis. Large airways patent. On bone windows, degenerative changes of the spine. Osteopenia. IMPRESSION: 1. No evidence of pulmonary embolus. No acute intrathoracic pathology. Dependent opacities likely atelectasis. 2. Mild cardiomegaly. 3. Hepatic steatosis. 4. Osteopenia. Electronically signed by: Kendall Al M.D. 10/28/2017 4:22 PM Consultation: A consultation was placed with the hospitalist, Dr Mcguire. The case was discussed and diagnostics were reviewed. The patient was evaluated in the ER for further treatment. Exam and history seem consistent chest pain and dyspnea with concerns of cardiac in etiology. Patient had ongoing worsening symptoms for the past few weeks. No recent stress test or echo. She felt better after Nitro. She will be evaluated by medicine for possible admission. She had a chest CTA 2 days ago that was negative for PE. By the evaluation outlined above emergent etiologies such as aortic dissection , pulmonary embolism, pneumonia, pneumothorax, infections, pericarditis, myocarditis, gastrointestinal, as well as others were deemed relatively unlikely. The pt informed about the findings as listed above. All questions were answered and pleased with the treatment. Case reviewed with my attending Medical Decision As above Medication Reconcilliation Current Medication List: was personally reviewed by me Blood Pressure Screening Patient's blood pressure: Normal blood pressure Impression Primary Impression: Precordial chest pain Additional Impressions: Dyspnea Hypokalemia Hypomagnesemia Departure Information Dispostion Being Evaluated By Hospitalist Condition FAIR Referrals Alexandra Wilkes MD (PCP) Patient Instructions My [facility] Problem Qualifiers
[2017-10-30 04:36] LABS: INR 0.9 (0.9-1.1)
--- NOTE | 2017-10-30 05:07 | EMERGENCY ROOM VISIT NOTE ---
ED Visit Note First contact with patient: 23:55 I have personally evaluated and examined this patient. I agree with assessment and plan of Dayana Magdaleno PA-C. 71 yr old female with several weeks progressive SHOB and over last few days intermittent Chest Pressure which become more severe this evening. CP resolved with SLNTG. With her history I suspect this may be cardiac in origin and thus will bring in for further evaluation/work-up.
[2017-10-30] MEDS: HEPARIN SOD 5000 UNIT/0.5 ML CARP SQ SCH ×2 (05:43→14:24)
[2017-10-30 08:01] VITALS: BP 123/66; PULSE 70; TEMP 36.8; O2SAT 95
--- NOTE | 2017-10-30 08:14 | DIAGNOSTIC IMAGING REPORT ---
CHEST ONE VIEW PORTABLE HISTORY: Short of breath. Atypical CHEST PAIN COMPARISON: Chest x-ray and chest CTA 10/28/2017. FINDINGS: No pneumothorax. No pleural effusions. Mild emphysema. The heart is top normal in size. No focal lung consolidations to suggest pneumonia. No evidence for pulmonary edema. IMPRESSION: No significant change compared to the prior study. No acute process. Electronically signed by: Ramsey Venegas M.D. 10/30/2017 8:13 AM Dictated Date/Time: 10/30/2017 8:12 AM
[2017-10-30] MEDS ORDERED: HYDROCHLOROTHIAZIDE 25 MG TAB PO SCH (09:00)
[2017-10-30] MEDS ORDERED: POTASSIUM CHLORIDE 20 MEQ TABCR PO SCH (09:00)
[2017-10-30] MEDS ORDERED: LEFLUNOMIDE 10 MG TAB PO SCH (09:00)
[2017-10-30] MEDS ORDERED: METOPROLOL SUCC 50MG EXT REL TAB PO SCH (09:00)
[2017-10-30] MEDS ORDERED: ASPIRIN 81 MG ECTAB PO SCH (09:00)
[2017-10-30] MEDS ORDERED: ATORVASTATIN 20 MG TAB PO SCH (09:00)
--- NOTE | 2017-10-30 09:57 | ECHOCARDIOGRAM REPORT ---
*NOTICE TO RECEIVING DEMOCRAT AGENCY This information is strictly Confidential and protected under [place] law. [place] law prohibits you from making any further disclosure of this information unless further disclosure is expressly permitted by the written consent of the person to whom it pertains or is authorized by law. A general authorization for the release of medical or other information is not sufficient for this purpose. Hospital accepts no responsibility if the information is made available to any other person, INCLUDING THE PATIENT. Interpretation Summary * Name: RAFIQ LOPEZ Study Date: 10/30/2017 06:36 AM BP: 169/72 mmHg * Patient Location: .2T\S\S242\S\1 HR: 72 * : 1945 (M/d/yyyy) Gender: Female Height: 67 in * Age: 71 yrs Ethnicity: CA Weight: 151 lb * Ordering Physician: Poncho Mcguire * Referring Physician: Maddy Lou * Performed By: Philomena Barba RDCS * * Reason For Study: Angina * BSA: 1.8 m2 * -- Conclusions -- * The left ventricle is normal in size. * There is borderline concentric left ventricular hypertrophy. * Left ventricular systolic function is normal. * Ejection Fraction = 60-65%. * The left ventricular wall motion is normal. * The right ventricle is normal in size and function. * The right ventricular systolic function is normal as assessed by tricuspid annular plane systolic excursion (TAPSE) (normal >1.5 cm). * Aortic valve sclerosis mild, without significant aortic valvular stenosis. * Mild aortic regurgitation. * Right ventricular systolic pressure is normal. * Grade I diastolic dysfunction, (abnormal relaxation pattern). Procedure Details * A complete two-dimensional transthoracic echocardiogram was performed (2D, M-mode, Doppler and color flow Doppler). Left Ventricle * The left ventricle is normal in size. * There is borderline concentric left ventricular hypertrophy. * Ejection Fraction = 60-65%. * Left ventricular systolic function is normal. * The left ventricular wall motion is normal. Right Ventricle * The right ventricle is normal in size and function. * The right ventricular systolic function is normal as assessed by tricuspid annular plane systolic excursion (TAPSE) (normal >1.5 cm). Atria * The left atrium is mildly dilated. * Right atrial size is normal. Mitral Valve * The mitral valve leaflets appear normal. There is no evidence of stenosis, fluttering, or prolapse. * There is trace mitral regurgitation. Tricuspid Valve * The tricuspid valve is not well visualized, but is grossly normal. * There is trace tricuspid regurgitation. * Right ventricular systolic pressure is normal. Aortic Valve * Aortic valve sclerosis mild, without significant aortic valvular stenosis. * Mild aortic regurgitation. Pulmonic Valve * The pulmonic valve is not well seen, but is grossly normal. Great Vessels * The aortic root is normal size. Pericardium/Pleural * There is no pericardial effusion. Great Vessels * Normal inferior vena cava diameter and respiratory variation suggests normal central venous pressure. Left Ventricular Diastolic Function * Grade I diastolic dysfunction, (abnormal relaxation pattern). MMode 2D Measurements and Calculations IVSd 1.1 cm IVSs 1.3 cm LVIDd 4.3 cm LVIDs 2.8 cm LVPWd 1.3 cm LVPWs 1.7 cm IVS/LVPW 0.86 FS 36.1 % EDV(Teich) 84.6 ml ESV(Teich) 28.7 ml EF(Teich) 66.0 % EDV(cubed) 81.4 ml ESV(cubed) 21.2 ml EF(cubed) 73.9 % % IVS thick 22.6 % % LVPW thick 35.7 % LV mass(C)d 183.6 grams LV mass(C)dI 102.3 grams/m\S\2 LV mass(C)s 148.9 grams LV mass(C)sI 83.0 grams/m\S\2 SV(Teich) 55.9 ml SI(Teich) 31.1 ml/m\S\2 SV(cubed) 60.2 ml SI(cubed) 33.5 ml/m\S\2 Ao root diam 2.8 cm Ao root area 6.3 cm\S\2 ACS 1.3 cm LA dimension 3.1 cm LA/Ao 1.1 LVAd ap4 22.8 cm\S\2 LVLd ap4 7.0 cm EDV(MOD-sp4) 66.7 ml EDV(sp4-el) 62.6 ml LVAs ap4 13.1 cm\S\2 LVLs ap4 6.0 cm ESV(MOD-sp4) 27.5 ml ESV(sp4-el) 24.3 ml EF(MOD-sp4) 58.7 % EF(sp4-el) 61.1 % LVAd ap2 18.2 cm\S\2 LVLd ap2 7.2 cm EDV(MOD-sp2) 42.0 ml EDV(sp2-el) 39.0 ml LVAs ap2 9.2 cm\S\2 LVLs ap2 6.2 cm ESV(MOD-sp2) 13.2 ml ESV(sp2-el) 11.5 ml EF(MOD-sp2) 68.6 % EF(sp2-el) 70.5 % LVLd %diff 2.3 % EDV(MOD-bp) 52.4 ml LVLs %diff 3.6 % ESV(MOD-bp) 19.1 ml EF(MOD-bp) 63.6 % SV(MOD-sp4) 39.1 ml SI(MOD-sp4) 21.8 ml/m\S\2 SV(MOD-sp2) 28.8 ml SI(MOD-sp2) 16.1 ml/m\S\2 SV(MOD-bp) 33.4 ml SI(MOD-bp) 18.6 ml/m\S\2 SV(sp4-el) 38.3 ml SI(sp4-el) 21.3 ml/m\S\2 SV(sp2-el) 27.5 ml SI(sp2-el) 15.3 ml/m\S\2 Doppler Measurements and Calculations MV E max zachery 65.2 cm/sec MV A max zachery 105.7 cm/sec MV E/A 0.62 MV dec time 0.31 sec Ao V2 max 164.8 cm/sec Ao max PG 10.9 mmHg Ao max PG (full) 5.3 mmHg AI max zachery 306.0 cm/sec AI max PG 37.5 mmHg AI dec slope 178.7 cm/sec\S\2 AI P1/2t 501.7 msec LV V1 max PG 5.5 mmHg LV V1 max 117.6 cm/sec PA V2 max 93.2 cm/sec PA max PG 3.5 mmHg TR max zachery 205.1 cm/sec
[2017-10-30] MEDS ORDERED: LEVALBUTEROL 1.25MG/3ML NEB INH PRN (10:00)
[2017-10-30 11:07] LABS: CALCIUM 8.7 mg/dl (8.5-10.1); CREATININE 0.81 mg/dl (0.60-1.20); POTASSIUM 3.4 mmol/L (3.5-5.1)
--- NOTE | 2017-10-30 11:07 | Hospitalist Progress Note ---
Hospitalist Progress Note Date of Service Oct 30, 2017. (Sofi Jackson PA-C) Subjective Pt evaluation today including: conversation w/ patient, physical exam, chart review, lab review, review of studies Pain: None PO Intake: NPO Voiding: no voiding problems Pt reports her chest tightness is slightly still present but denies pain. She denies any difference in cough and reports worsening chest pain due to the cough itself. No mucous production. Denies fever, chills, sweats. She is hoping to eat lunch soon. Discussion held regarding initial troponin negative, and awaiting echo report. ROS: 6 point ROS reviewed and negative. (Sofi Jackson PA-C) Objective Vital Signs Date Time Temp Pulse Resp B/P (MAP) Pulse Ox O2 Delivery O2 Flow Rate FiO2 10/30/17 08:01 36.8 70 16 123/66 (85) 95 Room Air 10/30/17 07:30 Room Air 10/30/17 03:14 36.7 72 20 169/72 97 Room Air 10/30/17 03:03 74 20 137/69 93 Room Air 10/30/17 02:13 72 20 133/57 92 Room Air 10/30/17 01:57 69 20 135/48 94 Room Air 10/30/17 01:48 74 20 155/70 94 Room Air 10/30/17 00:42 75 16 91 Room Air 10/30/17 00:36 140/79 10/30/17 00:21 73 10/30/17 00:21 98 Room Air 10/30/17 00:18 Room Air 10/29/17 23:51 36.8 79 22 134/77 95 Room Air (Sofi Jackson PA-C) Physical Exam General Appearance: WD/WN, no apparent distress Eyes: PERRL, EOMI Respiratory/Chest: chest non-tender, lungs clear, no respiratory distress, no accessory muscle use, + pertinent finding (on room air) Cardiovascular: regular rate, rhythm, + systolic murmur (faint) Abdomen: normal bowel sounds, non tender, soft Extremities: non-tender, no pedal edema, no calf tenderness Neurologic/Psychiatric: alert, normal mood/affect, oriented x 3 Skin: normal color, warm/dry (Sofi Jackson PA-C) Laboratory Results Last 24 Hours Test 10/30/17 00:22 10/30/17 00:26 10/30/17 07:07 10/30/17 10:16 White Blood Count 8.97 K/uL Red Blood Count 3.85 M/uL Hemoglobin 11.8 g/dL Hematocrit 35.4 % Mean Corpuscular Volume 91.9 fL Mean Corpuscular Hemoglobin 30.6 pg Mean Corpuscular Hemoglobin Concent 33.3 g/dl Platelet Count 215 K/uL Mean Platelet Volume 9.9 fL Neutrophils (%) (Auto) 66.7 % Lymphocytes (%) (Auto) 19.0 % Monocytes (%) (Auto) 13.4 % Eosinophils (%) (Auto) 0.0 % Basophils (%) (Auto) 0.7 % Neutrophils # (Auto) 5.99 K/uL Lymphocytes # (Auto) 1.70 K/uL Monocytes # (Auto) 1.20 K/uL Eosinophils # (Auto) 0.00 K/uL Basophils # (Auto) 0.06 K/uL RDW Standard Deviation 47.8 fL RDW Coefficient of Variation 14.2 % Immature Granulocyte % (Auto) 0.2 % Immature Granulocyte # (Auto) 0.02 K/uL Prothrombin Time 9.8 SECONDS Prothromb Time International Ratio 0.9 Sodium Level 137 mmol/L Potassium Level 2.9 mmol/L Chloride Level 104 mmol/L Carbon Dioxide Level 24 mmol/L Anion Gap 9.0 mmol/L Blood Urea Nitrogen 21 mg/dl Creatinine 1.10 mg/dl Est Creatinine Clear Calc Drug Dose 44.3 ml/min Estimated GFR () 57.7 Estimated GFR (Non- 49.8 BUN/Creatinine Ratio 19.3 Random Glucose 100 mg/dl Calcium Level 8.8 mg/dl Magnesium Level 1.7 mg/dl Total Bilirubin 0.3 mg/dl Direct Bilirubin < 0.1 mg/dl Aspartate Amino Transf (AST/SGOT) 34 U/L Alanine Aminotransferase (ALT/SGPT) 36 U/L Alkaline Phosphatase 87 U/L Total Protein 6.9 gm/dl Albumin 2.8 gm/dl Lipase 116 U/L Thyroid Stimulating Hormone (TSH) 1.020 uIu/ml Bedside Troponin I < 0.030 ng/ml D-Dimer 560 ug/L FEU Troponin I 0.016 ng/ml (Sofi Jackson PA-C) Assessment and Plan 71 y/o F Hx Psoriatic arthritis, HTN, HPL. Presents with persistent SOB and intermittent central CP for 1-2 weeks. She was instructed to attend the ER by her primary MD earlier in the day. She denies any radiation of her pain, nausea /vomiting or diaphoresis. The pt's pain resolved entirely with a single SL NTG and she reports improvement in her SOB as well. She states she had a stress test 2 years ago which showed a "valve problem" and was otherwise normal. CP/SOB - she has several cardiac risk factors and possibly an abnormal EKG which is similar on repeat. - Additionally, she reports complete resolution with NTG. - Initial troponin negative, trend x 2 more sets - Cardiology consulted - Continue ASA , add atorvastatin 20 mg daily and continue metoprolol succ 100 mg daily - D-dimer elevated, CT chest for PE ordered - Echo completed 10/30/17: * -- Conclusions -- * The left ventricle is normal in size. * There is borderline concentric left ventricular hypertrophy. * Left ventricular systolic function is normal. * Ejection Fraction = 60-65%. * The left ventricular wall motion is normal. * The right ventricle is normal in size and function. * The right ventricular systolic function is normal as assessed by tricuspid annular plane systolic excursion (TAPSE) (normal >1.5 cm). * Aortic valve sclerosis mild, without significant aortic valvular stenosis. * Mild aortic regurgitation. * Right ventricular systolic pressure is normal. * Grade I diastolic dysfunction, (abnormal relaxation pattern). Psoriatic arthritis - she is prescribed Leflunomide and is in the process of transitioning to Cimzia. - She receives 5mg prednisone daily as well. HTN - has been difficult to control - will remain on Metoprolol, HCTZ, Hydralazine. HPL - listed in chart - not treated - may be sensitive to Statins- started on atorvastatin 20 mg CODE STATUS: FULL Disposition: From home, may need outpatient stress testing, possible dc in 1 day (Sofi Jackson PA-C) Reviewed: Pt Seen/Exam by Me (Chaya Wellington MD) History Please see discharge summary dated the same date of service (Chaya Wellington MD)
[2017-10-30 12:07] VITALS: BP 130/70; PULSE 67; TEMP 36.4; O2SAT 95
--- NOTE | 2017-10-30 12:37 | DIAGNOSTIC IMAGING REPORT ---
CHEST CTA for PULMONARY ARTERIES CT DOSE: 391.82 mGy.cm HISTORY: Shortness of breath. Left-sided chest pain. TECHNIQUE: Multiaxial CT images of the chest were performed following the intravenous administration of contrast to evaluate the pulmonary arteries. Maximal intensity projection images were also obtained. A dose lowering technique was utilized adhering to the principles of ALARA. COMPARISON STUDY: Chest CTA 10/28/2017. FINDINGS: The visualized spleen is unremarkable. No mediastinal or hilar lymphadenopathy. The heart is top normal in size. Mild hepatic steatosis. No pleural or pericardial effusions. No acute fractures within the visualized osseous structures. No pneumothorax. The central airways are patent. No new focal lung consolidations to suggest pneumonia. A 2 mm nodule within the right lung apex on image 87, unchanged. This is of doubtful clinical significance given its small size. Mild interstitial thickening at the lung bases which is likely chronic. Normal caliber thoracic aorta with no evidence for dissection. No filling defects within the pulmonary arteries to suggest pulmonary embolus. IMPRESSION: No change compared to the prior study. No evidence for pulmonary embolus. Electronically signed by: Ramsey Venegas M.D. 10/30/2017 12:36 PM Dictated Date/Time: 10/30/2017 12:30 PM
[2017-10-30] MEDS ORDERED: GUAIFENESIN SUGAR FREE 100 MG/5 ML UDC PO PRN (13:00)
[2017-10-30] MEDS ORDERED: AZITHROMYCIN 250 MG TAB PO SCH (13:00)
[2017-10-30] MEDS ORDERED: AZIT-57 PO ×2 (13:11→17:44)
[2017-10-30] MEDS ORDERED: RBTUDL5 PO (13:11)
[2017-10-30] MEDS ORDERED: LPT20 PO (13:11)
--- NOTE | 2017-10-30 13:21 | Discharge Instructions ---
Discharge Instructions Date of Service Oct 30, 2017. Admission Reason for Admission: Chest Pain, Shortness Of Breath Discharge Discharge Diagnosis / Problem: Atypical Chest pain, Bronchitis Discharge Goals Goal(s): Decrease discomfort, Improve function, Increase independence, Improve disease control Activity Recommendations Activity Limitations: resume your previous activity Lifting Limitations: gradually increase as tolerated Exercise/Sports Limitations: gradually increase as tolerated May Resume Sexual Activity: when tolerated Shower/Bathe: no limitations Driving or Machine Use: no limitations . Instructions / Follow-Up Instructions / Follow-Up You were admitted to [facility] with atypical chest pain and shortness of breath. You were diagnosed with bronchitis. Your pain is likely coming from muscle strain from frequent coughing. You were evaluated for a heart attack and all those tests were normal. An echocardiogram (ultrasound) of the heart was completed showing normal functionwith a little bit of a leaky valve that should be followed routinely by your doctor. During your stay here you were treated with supportive care including breathing treatments and were started on a different antibiotic for the bronchitis. You were also prescribed cough syrup and an inhaler to help with the cough and shortness of breath. Your oxygen levels were normal with both walking and at rest. A CT scan of your chest was normal as well and there were no blood clots or pneumonia in your lungs. Medications: For Bronchitis: Continue taking azithromycin 250 mg daily x 4 more days starting tomorrow. Finish this course on 11/04. Continue using robitussin and the albuterol inhaler for cough as needed. Continue taking your other medications as above. Appointments: Follow up with your Primary Care Provider within 1 week. Follow up with cardiology within 1 week. Discuss having an outpatient stress test with your computer specialist. Current Hospital Diet Patient's current hospital diet: AHA Diet (Heart Healthy) Discharge Diet Recommended Diet: AHA Diet (Heart Healthy) Procedures Procedures Performed: Echocardiogram 10/30 CT Chest Chest xray Pending Studies Studies pending at discharge: no Laboratory Results Hemoglobin A1c Test 10/27/17 17:24 Range/Units Estimated Average Glucose 105 mg/dl Hemoglobin A1c 5.3 4.5-5.6 % Medical Emergencies . Who to Call and When: Medical Emergencies: If at any time you feel your situation is an emergency, please call 911 immediately. . Non-Emergent Contact Non-Emergency issues call your: Primary Care Provider Call Non-Emergent contact if: you have a fever, temperature is above 100.5, your pain is not controlled, your pain is worsening, your pain is unusual for you, your pain is concerning you, you have any medication questions other concerns with your health. Call 911 or go directly to the Emergency Department if you experience any of the following: Chest pain, chest tightness, shortness of breath, abdominal pain , lightheadedness, dizziness, gastrointestinal bleeding, or have any other concerns regarding your health. . Past History Medical & Surgical History: (1) Bronchitis (2) Chest pain (3) Hypertension (4) Hyperlipidemia . "Provider Documentation" section prepared by Courtney Jackson. . VTE Core Measure Inpt VTE Proph given/why not?: Unfractionated heparin SQ
--- NOTE | 2017-10-30 13:39 | Discharge Summary ---
Discharge Summary Date of Service Oct 30, 2017. Discharge Summary Admission Date: Oct 30, 2017 at 02:22 Discharge Date: Oct 30, 2017 Discharge Disposition: Home Principal Diagnosis: Atypical chest pain, bronchitis Problems/Secondary Diagnoses: Psoriatic arthritis HTN HPL Chronic diastolic CHF Procedures: CHEST CTA for PULMONARY ARTERIES CT DOSE: 391.82 mGy.cm HISTORY: Shortness of breath. Left-sided chest pain. TECHNIQUE: Multiaxial CT images of the chest were performed following the intravenous administration of contrast to evaluate the pulmonary arteries. Maximal intensity projection images were also obtained. A dose lowering technique was utilized adhering to the principles of ALARA. COMPARISON STUDY: Chest CTA 10/28/2017. FINDINGS: The visualized spleen is unremarkable. No mediastinal or hilar lymphadenopathy. The heart is top normal in size. Mild hepatic steatosis. No pleural or pericardial effusions. No acute fractures within the visualized osseous structures. No pneumothorax. The central airways are patent. No new focal lung consolidations to suggest pneumonia. A 2 mm nodule within the right lung apex on image 87, unchanged. This is of doubtful clinical significance given its small size. Mild interstitial thickening at the lung bases which is likely chronic. Normal caliber thoracic aorta with no evidence for dissection. No filling defects within the pulmonary arteries to suggest pulmonary embolus. IMPRESSION: No change compared to the prior study. No evidence for pulmonary embolus. Electronically signed by: Ramsey Venegas M.D. 10/30/2017 12:36 PM Dictated Date/Time: 10/30/2017 12:30 PM The status of this report is Signed. CHEST ONE VIEW PORTABLE HISTORY: Short of breath. Atypical CHEST PAIN COMPARISON: Chest x-ray and chest CTA 10/28/2017. FINDINGS: No pneumothorax. No pleural effusions. Mild emphysema. The heart is top normal in size. No focal lung consolidations to suggest pneumonia. No evidence for pulmonary edema. IMPRESSION: No significant change compared to the prior study. No acute process. Electronically signed by: Ramsey Venegas M.D. 10/30/2017 8:13 AM Dictated Date/Time: 10/30/2017 8:12 AM The status of this report is Signed. Consultations: Cardiology Medication Reconciliation New Medications: Atorvastatin (Atorvastatin Calcium) 20 Mg Tab 20 MG PO QAM for 30 Days, #30 TAB Azithromycin (Azithromycin) 250 Mg Tab 500 MG PO QAM for 4 Days, #8 TAB Take first dose on 12/24. Finish on 11/04 Guaifenesin (Robitussin) 100 Mg/5 Ml Bonnie 100 MG PO Q6H PRN for Cough for 7 Days, #28 DOSE Continued Medications: Hydralazine Hcl (Apresoline) 50 Mg Tab 100 MG PO TID, TAB Hydrochlorothiazide (Hctz) 12.5 Mg Cap 12.5 MG PO DAILY, TAB Leflunomide (Arava) 10 Mg Tab 10 MG PO DAILY/UD Metoprolol Succinate (Metoprolol Succinate ER) 100 Mg Tabcr 100 MG PO DAILY Potassium Ext Rel (Klor-Con) 20 Meq Tabcr 20 MEQ PO BID, TAB Prednisone (Prednisone) 5 Mg Tab 5 MG PO DAILY, TAB Discontinued Medications: Cephalexin Monohydrate (Keflex) 500 Mg Cap 500 MG PO BID for 7 Days, #14 CAP BEGIN 10/27/17 X 7 DAYS Discharge Exam Subjective Pt evaluation today including: conversation w/ patient, physical exam, chart review, lab review, review of studies Pain: None PO Intake: NPO Voiding: no voiding problems Pt reports her chest tightness is slightly still present but denies pain. She denies any difference in cough and reports worsening chest pain due to the cough itself. No mucous production. Denies fever, chills, sweats. She is hoping to eat lunch soon. Discussion held regarding initial troponin negative, and awaiting echo report. ROS: 6 point ROS reviewed and negative. Objective Vital Signs Date Time Temp Pulse Resp B/P (MAP) Pulse Ox O2 Delivery O2 Flow Rate FiO2 10/30/17 08:01 36.8 70 16 123/66 (85) 95 Room Air 10/30/17 07:30 Room Air 10/30/17 03:14 36.7 72 20 169/72 97 Room Air 10/30/17 03:03 74 20 137/69 93 Room Air 10/30/17 02:13 72 20 133/57 92 Room Air 10/30/17 01:57 69 20 135/48 94 Room Air 10/30/17 01:48 74 20 155/70 94 Room Air 10/30/17 00:42 75 16 91 Room Air 10/30/17 00:36 140/79 10/30/17 00:21 73 10/30/17 00:21 98 Room Air 10/30/17 00:18 Room Air 10/29/17 23:51 36.8 79 22 134/77 95 Room Air Physical Exam General Appearance: WD/WN, no apparent distress Eyes: PERRL, EOMI Respiratory/Chest: chest non-tender, lungs clear, no respiratory distress, no accessory muscle use, + pertinent finding (on room air) Cardiovascular: regular rate, rhythm, + systolic murmur (faint) Abdomen: normal bowel sounds, non tender, soft Extremities: non-tender, no pedal edema, no calf tenderness Neurologic/Psychiatric: alert, normal mood/affect, oriented x 3 Skin: normal color, warm/dry Hospital Course History of Present Illness Source: patient 71 y/o F Hx Psoriatic arthritis, HTN, HPL. Presents with persistent SOB and intermittent central CP for 1-2 weeks. She was instructed to attend the ER by her primary MD earlier in the day. She denies any radiation of her pain, nausea /vomiting or diaphoresis. The pt's pain resolved entirely with a single SL NTG and she reports improvement in her SOB as well. She states she had a stress test 2 years ago which showed a "valve problem" and was otherwise normal. Physical Exam General Appearance: WD/WN, no apparent distress Head: normocephalic Eyes: normal inspection ENT: normal ENT inspection, hearing grossly normal Neck: supple, no JVD Respiratory/Chest: chest non-tender, lungs clear, normal breath sounds Cardiovascular: regular rate, rhythm, no edema, no gallop Abdomen/GI: normal bowel sounds, non tender, soft Back: normal inspection, no CVA tenderness Extremities/Musculoskelatal: normal inspection, no calf tenderness, normal capillary refill, no pedal edema, normal range of motion Neurologic/Psych: thermite welder II-XII nml as tested, no motor/sensory deficits, alert, oriented x 3 Skin: normal color, warm/dry, no rash Hospital Course: 71 y/o F Hx Psoriatic arthritis, HTN, HPL. Presents with persistent SOB and intermittent central CP for 1-2 weeks. She was instructed to attend the ER by her primary MD earlier in the day. She denies any radiation of her pain, nausea /vomiting or diaphoresis. The pt's pain resolved entirely with a single SL NTG and she reports improvement in her SOB as well. She states she had a stress test 2 years ago which showed a "valve problem" and was otherwise normal. CP/SOB - she has several cardiac risk factors and possibly an abnormal EKG which is similar on repeat. - Additionally, she reports complete resolution with NTG. - Troponins negative x 3 - Cardiology consulted - will need outpatient stress test conducted. - Continue ASA , add atorvastatin 20 mg daily and continue metoprolol succ 100 mg daily - D-dimer elevated, CT chest for PE ordered and was negative for PE and pneumonia. - Echo completed 10/30/17: * -- Conclusions -- * The left ventricle is normal in size. * There is borderline concentric left ventricular hypertrophy. * Left ventricular systolic function is normal. * Ejection Fraction = 60-65%. * The left ventricular wall motion is normal. * The right ventricle is normal in size and function. * The right ventricular systolic function is normal as assessed by tricuspid annular plane systolic excursion (TAPSE) (normal >1.5 cm). * Aortic valve sclerosis mild, without significant aortic valvular stenosis. * Mild aortic regurgitation. * Right ventricular systolic pressure is normal. * Grade I diastolic dysfunction, (abnormal relaxation pattern). Bronchitis - Worsening chest pain with cough specifically - Started on azithromycin 500 mg daily, continue x 5 day course - Robitussin and cough drops, and albuterol inhaler for shortness of breath - Duonebs helped while admitted, pt remained on room air with adequate saturations Psoriatic arthritis - she is prescribed Leflunomide and is in the process of transitioning to Cimzia. - She receives 5mg prednisone daily as well. HTN - improved - will remain on Metoprolol, HCTZ, Hydralazine. HPL - listed in chart - not treated - may be sensitive to Statins- started on atorvastatin 20 mg CODE STATUS: FULL Disposition: From home, will need outpatient stress testing, discharge today Total Time Spent: Greater than 30 minutes This includes examination of the patient, discharge planning, medication reconciliation, and communication with other providers. Discharge Instructions Please refer to the electronic Patient Visit Report (Discharge Instructions) for additional information. Follow-Up Follow up with your Primary Care Provider within 1 week. Follow up with cardiology within 1 week. Additional Copies To Alexandra Wilkes MD Reviewed: Pt Seen/Exam by Me History Physician Musical Instrument Maker Supervision Note: I interviewed and examined the patient. Discussed with OLE Velasquez and agree with findings and plan as documented in the note. Any exceptions or clarifications are listed here: Patient feeling better, no further chest pain. She ambulated the halls and did not require any oxygen as her pulse ox stayed at 95% all time. She is ruled out for acute coronary syndrome here and does not have a PE or any other significant abnormality on the CT of her chest. She has remained in normal sinus rhythm on telemetry. She reports that the pain in her chest is underneath her ribs and feels that the muscle soreness. She has been coughing frequently for at least 2 weeks and this makes the pain worse. Vitals and telemetry reviewed, blood pressures are improved No acute distress Regular rate and rhythm no murmurs gallops rubs Very mild expiratory wheezes at the bases otherwise clear to auscultation bilaterally, positive tenderness to palpation of the intercostal muscles at the inferior rib cage Abdomen positive bowel sounds soft nontender nondistended Extremities no edema 71-year-old female here with atypical chest pain and acute bronchitis. She is ruled out for acute coronary syndrome and is not hypoxic. We will continue to treat her bronchitis with 4 more days of azithromycin. She can take Tylenol as needed for pain in her ribs and follow up with her primary care physician within one week. Documented By: Chaya Wellington
[2017-10-30 14:19] VITALS: PULSE 67; O2SAT 96
[2017-10-30] MEDS ORDERED: LEVALBUTEROL 1.25MG/3ML NEB INH SCH (15:00)
[2017-10-30 15:38] VITALS: BP 128/72; PULSE 75; TEMP 37; O2SAT 92
[2017-10-30] MEDS ORDERED: VNTHFA/IN INH (18:07)
[2017-10-30] MEDS ORDERED: IBUP-1105 PO (18:14)
[2017-10-30 18:16] VITALS: BP 128/72; PULSE 75; TEMP 37; O2SAT 92
[2017-10-30] MEDS ORDERED: ALBUTEROL HFA 8 GM INHALER INH SCH (18:30)
== END 2017-10-30 18:59 | disposition home or self-care (01) ==
LOC: C.EDB 23:43 → C.2T 10-30 02:22 → ENRESERV 10-30 02:40
PROVIDERS: ADMIT Internal Medicine; ATTEND Internal Medicine
DX: R07.89 Other chest pain (principal); J40 Bronchitis, not specified as acute or chronic; I50.32 Chronic diastolic (congestive) heart failure; R06.02 Shortness of breath; E87.6 Hypokalemia; E83.42 Hypomagnesemia; I10 Essential (primary) hypertension; E78.5 Hyperlipidemia, unspecified; M06.9 Rheumatoid arthritis, unspecified; L40.50 Arthropathic psoriasis, unspecified; Z90.710 Acquired absence of both cervix and uterus; Z86.19 Personal history of other infectious and parasitic diseases; Z83.3 Family history of diabetes mellitus; Z82.49 Family history of ischemic heart disease and other diseases of the circulatory system; Z88.2 Allergy status to sulfonamides; Z79.82 Long term (current) use of aspirin

== ENCOUNTER → 2017-12-15 | Outpatient (CLI) | payer OTHER, MEDICARE ==
[~2017-12-15] MED LIST changes: +AZIT-57 PO; +HYDR-4717 PO; +IBUP-1105 PO; +LPT20 PO; +RBTUDL5 PO; +VNTHFA/IN INH
--- NOTE | 2017-12-15 14:01 | MAMMOGRAPHY REPORT ---
BILATERAL DIGITAL SCREENING MAMMOGRAM TOMOSYNTHESIS WITH CAD: 12/15/2017 CLINICAL HISTORY: Routine screening. Patient has no complaints. TECHNIQUE: Breast tomosynthesis in addition to standard 2D mammography was performed. Current study was also evaluated with a Computer Aided Detection (CAD) system. COMPARISON: Comparison is made to exams dated: 12/14/2016 mammogram, 12/11/2015 mammogram, 12/10/2014 mamm ogram, 12/08/2013 mammogram, 12/07/2012 mammogram, and 07/02/2011 mammogram - [facility] er. BREAST COMPOSITION: There are scattered areas of fibroglandular density in both breasts. FINDINGS: There are moderate vascular calcifications in the breasts. Scattered benign rodlike and r im calcifications as well. A tiny stable grouping of punctate microcalcifications in the superior le ft breast. No new suspicious mass, architectural distortion or cluster of microcalcifications is see n. IMPRESSION: ACR BI-RADS CATEGORY 1: NEGATIVE There is no mammographic evidence of malignancy. A 1 year screening mammogram is recommended. The pa tient will receive written notification of the results. Approximately 10% of breast cancers are not detected with mammography. A negative mammographic report should not delay biopsy if a clinically suggestive mass is present. Rena Culver M.D. ay/:12/15/2017 10:29:34 Cellar Pumper: Mae Magana, [facility] letter sent: Normal 1/2 BI-RADS Code: ACR BI-RADS Category 1: Negative
== END | disposition home or self-care (01) ==
LOC: C.MAMM 10:04
PROVIDERS: ATTEND Family Medicine
DX: Z12.31 Encounter for screening mammogram for malignant neoplasm of breast (principal)

== ENCOUNTER → 2017-12-31 | Outpatient (CLI) | payer OTHER, MEDICARE ==
[2017-12-31 09:32] LABS: HEMATOCRIT 38.1 % (37-47); HEMOGLOBIN 12.4 g/dL (12.0-16.0); MEAN CELL VOLUME 92.9 fL (80-100); MEAN CORPUSCULAR HEMOGLOBIN 30.2 pg (25-34); MEAN CORPUSCULAR HGB CONC 32.5 g/dl (32-36); MEAN PLATELET VOLUME 11.1 fL (7.4-10.4); PLATELET COUNT 263 K/uL (130-400); RED CELL DISTRIBUTION WIDTH CV 14.8 % (11.5-14.5); RED CELL DISTRIBUTION WIDTH SD 50.2 fL (36.4-46.3); WHITE BLOOD COUNT 5.71 K/uL (4.8-10.8)
[2017-12-31 09:55] LABS: ALBUMIN 3.1 gm/dl (3.4-5.0); ALT/SGPT 26 U/L (12-78); AST/SGOT 22 U/L (15-37); BLOOD UREA NITROGEN 15 mg/dl (7-18); CALCIUM 9.5 mg/dl (8.5-10.1); CARBON DIOXIDE 27 mmol/L (21-32); CHOLESTEROL 205 mg/dl (0-200); CREATININE 0.91 mg/dl (0.60-1.20); GLUCOSE 90 mg/dl (70-99); POTASSIUM 2.8 mmol/L (3.5-5.1); SODIUM 137 mmol/L (136-145)
[2017-12-31 09:58] LABS: ALKALINE PHOSPHATASE 90 U/L (45-117); LDL CHOLESTEROL CALCULATED 98 mg/dl; TOTAL PROTEIN 7.4 gm/dl (6.4-8.2)
== END | disposition home or self-care (01) ==
LOC: C.LAB1850 07:29
PROVIDERS: ATTEND Internal Medicine Nephrology
DX: R80.9 Proteinuria, unspecified (principal); E55.9 Vitamin D deficiency, unspecified; I12.9 Hypertensive chronic kidney disease with stage 1 through stage 4 chronic kidney disease, or unspecified chronic kidney disease; N18.2 Chronic kidney disease, stage 2 (mild)

== ENCOUNTER → 2018-01-24 | Outpatient (CLI) | payer OTHER, MEDICARE ==
[2018-01-24 10:04] LABS: ALBUMIN 3.1 gm/dl (3.4-5.0); BLOOD UREA NITROGEN 16 mg/dl (7-18); CALCIUM 8.8 mg/dl (8.5-10.1); CARBON DIOXIDE 27 mmol/L (21-32); CREATININE 0.84 mg/dl (0.60-1.20); GLUCOSE 91 mg/dl (70-99); PHOSPHORUS 2.5 mg/dl (2.5-4.9); POTASSIUM 3.6 mmol/L (3.5-5.1); SODIUM 138 mmol/L (136-145)
== END | disposition home or self-care (01) ==
LOC: C.LAB1850 08:36
PROVIDERS: ATTEND Internal Medicine Nephrology
DX: R80.9 Proteinuria, unspecified (principal); E55.9 Vitamin D deficiency, unspecified; I12.9 Hypertensive chronic kidney disease with stage 1 through stage 4 chronic kidney disease, or unspecified chronic kidney disease; N18.2 Chronic kidney disease, stage 2 (mild); E87.6 Hypokalemia

== ENCOUNTER → 2018-03-11 | Outpatient (CLI) | payer OTHER, MEDICARE ==
[~2018-03-11] MED LIST changes: +POTA-639 PO; -POTA20TA16 PO
[2018-03-11 09:46] LABS: ALBUMIN 3.2 gm/dl (3.4-5.0); BLOOD UREA NITROGEN 18 mg/dl (7-18); CALCIUM 8.9 mg/dl (8.5-10.1); CARBON DIOXIDE 27 mmol/L (21-32); CREATININE 0.97 mg/dl (0.60-1.20); GLUCOSE 86 mg/dl (70-99); POTASSIUM 3.3 mmol/L (3.5-5.1); SODIUM 135 mmol/L (136-145)
[2018-03-11 09:48] LABS: PHOSPHORUS 2.5 mg/dl (2.5-4.9)
== END | disposition home or self-care (01) ==
LOC: C.LAB1850 07:26
PROVIDERS: ATTEND Internal Medicine Nephrology
DX: R80.9 Proteinuria, unspecified (principal); E87.6 Hypokalemia; E55.9 Vitamin D deficiency, unspecified; N18.2 Chronic kidney disease, stage 2 (mild); I10 Essential (primary) hypertension

== ENCOUNTER → 2018-05-30 | Outpatient (CLI) | payer OTHER, MEDICARE ==
[~2018-05-30] MED LIST changes: -VNTHFA/IN INH
[2018-05-30 15:26] LABS: ALBUMIN 3.6 gm/dl (3.4-5.0); BLOOD UREA NITROGEN 30 mg/dl (7-18); CALCIUM 9.2 mg/dl (8.5-10.1); CARBON DIOXIDE 23 mmol/L (21-32); CREATININE 1.21 mg/dl (0.60-1.20); GLUCOSE 101 mg/dl (70-99); PHOSPHORUS 2.4 mg/dl (2.5-4.9); POTASSIUM 3.5 mmol/L (3.5-5.1); SODIUM 137 mmol/L (136-145)
== END | disposition home or self-care (01) ==
LOC: C.LAB1850 13:21
PROVIDERS: ATTEND Internal Medicine Nephrology
DX: E55.9 Vitamin D deficiency, unspecified (principal)

== ENCOUNTER 2019-01-05 20:48 | Inpatient (IN) ==
[2019-01-05] MEDS ORDERED: KETOROLAC TROMETHAMINE 15 MG/ML VIAL IV STA (21:24)
[2019-01-05] MEDS ORDERED: ACETAMINOPHEN 1,000 MG/100 ML VIAL IV STA (21:24)
[2019-01-05] MEDS ORDERED: PROMETHAZINE HCL 6.25 MG in SODIUM CHLORIDE 0.9% 50 ML IV STA (21:24)
[2019-01-05] MEDS ORDERED: SODIUM CHLORIDE 0.9% 1000ML 1,000 ML IV ONE (21:24)
[2019-01-05] MEDS ORDERED: ONDANSETRON INJ 2 MG/ML 2 ML VIAL IV STA (21:24)
--- NOTE | 2019-01-05 21:37 | Emergency Department Note ---
Entered by Renata Neil acting as a scribe for Mauricio Kelley MD History of Present Illness General Chief complaint: Flu Like Symptoms Time Seen by Provider: 01/05/19 21:19 Source: patient and RN notes reviewed Mode of arrival: EMS Limitations: no limitations History of Present Illness Provider complaint: flu-like symptoms Onset (ago): day(s) 3 Location: head (generalized) Pain Consistency: + other (persistent) Quality: + other (flu-like) Associated symptoms: + denies other symptoms (sore throat, congestions), + cough, + fever/chills, + nausea/vomiting, + weakness and + other (diarrhea); no shortness of breath Treatments prior to arrival: other (Zofran) The patient is a 73 year old female who presents to the Emergency Room with co mplaints of persistent flu-like symptoms that began 3 days ago. The patient reports that she has had several episodes of nausea and vomiting as well as chills. She denies experiencing a sore throat or congestions but states she has been coughing, weak and has had some diarrhea. She also denies any shortness of breath. The patient reports that she was in contact with a family member who had similar but milder symptoms. She states that she did receive the flu vaccine this season. Per RN, the patient received 4 mg of Zofran en route. The patient notes that she did vomit after receiving the Zofran. Home Medications Home Medications Medication Instructions Recorded Confirmed Type Lidocaine Hcl 1% 10 ml INJ UD 01/05/19 01/05/19 History ergocalciferol (vitamin D2) 50,000 unit PO MONTHLY 01/05/19 01/05/19 History [Vitamin D2] hydralazine 100 mg PO TID 01/05/19 01/05/19 History nystatin 1 applic TOPICAL BID PRN 01/05/19 01/05/19 History ondansetron HCl [Zofran] 4 mg PO Q6 PRN 01/05/19 01/05/19 History potassium chloride [Klor-Con 10] 10 meq PO BID 01/05/19 01/05/19 History prednisone 3 mg PO DAILY 01/05/19 01/05/19 History triamterene-hydrochlorothiazid 1 tab PO DAILY 01/05/19 01/05/19 History [Maxzide] Allergies Allergy/AdvReac Type Severity Reaction Status Date / Time fentanyl Allergy Severe throat Verified 01/05/19 22:02 closed,itchy Sulfa (Sulfonamide Allergy Unknown Unknown Verified 01/05/19 22:02 Antibiotics) ciprofloxacin [From Cipro] AdvReac Severe Nausea & Verified 01/05/19 22:03 vomiting Past Med/Surg History Medical History Psoriasis (Chronic) Psoriatic arthritis (Chronic) Hypertension Lyme disease (Resolved 03/25/13) Social History Preferred Language: Bermudian Current Living Situation: Family Feels Safe at Home: Yes Smoking Status: Never smoker Review of Systems See HPI for pertinent positives & negatives. and A total of 10 systems reviewed and were otherwise negative Physical Exam Vital Signs Vital Signs - 24 hr 01/05/19 21:05 01/05/19 22:04 01/05/19 23:01 Temperature 37.9 C H 37.2 C Temperature Source Oral Oral Sepsis Recent Fever Within 48 Hours Yes Sepsis New/Unexplained Change in Mental Status No Sepsis Action Taken by Nursing No Action Required Pulse Rate 103 H Pulse Rate [Apical] 79 70 Pulse Rhythm [Apical] Regular Pulse Strength [Apical] Normal Respiratory Rate 19 17 18 Respiratory Effort / Characteristics Non-Labored Spontaneous Respiratory Depth Normal Respiratory Pattern Regular Blood Pressure 116/76 Blood Pressure [Right Arm] 126/61 128/56 L Blood Pressure Mean 89 Blood Pressure Mean [Right Arm] 82 80 Blood Pressure Position [Right Arm] Lying Pulse Oximetry 95 93 94 Oxygen Delivery Method Room Air Room Air Room Air GENERAL: Patient is in no acute distress. Vomit bag at bedside and vomit on shirt. HEENT: No acute trauma, normocephalic atraumatic, mucous membranes moist, no nasal congestion, no scleral icterus. No throat erythema or exudate. NECK: No stridor, no adenopathy, no meningismus, trachea is midline. LUNGS: Clear to auscultation bilaterally, no wheeze, no rhonchi, breath sounds equal. HEART: Without murmurs gallops or rubs, regular rate and rhythm. ABDOMEN: Soft, nontender, bowel sounds positive, no hernias, no peritonitis. RECTAL: brown stool, heme negative EXTREMITIES: No cyanosis or edema, full range of motion of all the joints without pain or difficulty, no signs for acute trauma. NEUROLOGIC: Oriented x 3, no acute motor or sensory deficits, no focal weakness. SKIN: No rash, no jaundice, no diaphoresis. Course 2120: Past medical records reviewed. The patient was evaluated in room C7, and a complete history and physical examination were performed. 0015: I reviewed the patient's case with Dr. Mcguire - [facility] Hospitalist. He will evaluate the patient for further management. Administered Medications Magnesium Sulfate/Dextrose (Magnesium Sulfate / D5w) 1 gm in 100 mls @ 100 mls/hr IV ONE ONE Stop: 01/06/19 00:46 Last Admin: 01/05/19 23:52 Dose: 100 mls/hr Documented by: [id number] Ioversol (Optiray 320 100ml) 100 ml IV ONCE PRN PRN Reason: Interaction Checking Stop: 01/09/19 23:50 Last Admin: 01/05/19 23:51 Dose: 92 ml Documented by: [id number] Discontinued Medications Acetaminophen (Ofirmev) 1,000 mg in 100 mls @ 400 mls/hr IV NOW STA Stop: 01/05/19 21:38 Last Infusion: 01/05/19 22:15 Dose: 0 mls/hr Documented by: [id number] Admin: 01/05/19 21:59 Dose: 400 mls/hr Documented by: [id number] Promethazine HCl 6.25 mg/ (Sodium Chloride) 50.25 mls @ 201 mls/hr IV NOW STA Stop: 01/05/19 21:38 Last Infusion: 01/05/19 22:15 Dose: 0 mls/hr Documented by: [id number] Admin: 01/05/19 22:00 Dose: 201 mls/hr Documented by: [id number] Sodium Chloride (Nss 1000ml) 1,000 mls @ 999 mls/hr IV .Q1H1M ONE Stop: 01/05/19 22:24 Last Infusion: 01/05/19 23:05 Dose: 0 mls/hr Documented by: [id number] Admin: 01/05/19 22:00 Dose: 999 mls/hr Documented by: [id number] Ketorolac Tromethamine (Toradol) 15 mg IV NOW STA Stop: 01/05/19 21:25 Last Admin: 01/05/19 22:00 Dose: 15 mg Documented by: [id number] Ondansetron HCl (Zofran) 4 mg IV NOW STA Stop: 01/05/19 21:25 Last Admin: 01/05/19 22:00 Dose: 4 mg Documented by: [id number] Medical Decision Making Differential Diagnosis Differential Diagnosis includes: influenza, flu-like illness, dehydration, pneumonia, electrolyte imbalance, UTI, anemia, bowel obstruction, foodborne illness, sepsis and generalized viral illness. Medical Records Attestation: I reviewed the patient's medical records. Home Medications Current Medication List: was personally reviewed by me Laboratory Data Attestation: I reviewed the patient's lab results. Result diagrams: 01/05/19 22:35 01/05/19 22:35 Lab Results 01/05/19 01/05/19 01/05/19 Range/Units 21:54 22:35 22:35 WBC 8.78 (4.8-10.8) K/uL RBC 2.97 L (4.2-5.4) M/uL Hgb 9.1 L (12.0-16.0) g/dL Hct 26.5 L (37-47) % MCV 89.2 (80-100) fL MCH 30.6 (25-34) pg MCHC 34.3 (32-36) g/dL RDW Std Deviation 47.8 H (36.4-46.3) fL RDW Coeff of [place] 14.6 H (11.5-14.5) % Plt Count 206 (130-400) K/uL MPV 9.3 (7.4-10.4) fL Immature Gran % (Auto) 0.2 % Neut % (Auto) 84.9 % Lymph % (Auto) 5.8 % [place] % (Auto) 9.0 % Eos % (Auto) 0.0 % Baso % (Auto) 0.1 % Immature Gran # (Auto) 0.02 (0.00-0.02) K/uL Neut # (Auto) 7.45 H (1.4-6.5) K/uL Lymph # (Auto) 0.51 L (1.2-3.4) K/uL [place] # (Auto) 0.79 H (0.11-0.59) K/uL Eos # (Auto) 0.00 (0-0.5) K/uL Baso # (Auto) 0.01 (0-0.2) K/uL PT 10.9 (9.0-12.0) Seconds INR 1.1 (0.9-1.1) APTT 30.6 (21.0-31.0) Seconds PTT Ratio 1.1 Sodium (136-145) mmol/L Potassium (3.5-5.1) mmol/L Chloride (98-107) mmol/L Carbon Dioxide (21-32) mmol/L Anion Gap (3-11) BUN (7-18) mg/dl Creatinine (0.6-1.2) mg/dl Est Cr Clr Drug Dosing ml/min Est GFR ( Amer) Est GFR (Non-Af Amer) BUN/Creatinine Ratio (10-20) Glucose (70-99) mg/dl Lactate (0.4-2.0) mmol/L Calcium (8.5-10.1) mg/dl Magnesium (1.8-2.4) mg/dl Total Bilirubin (0.2-1) mg/dl AST (15-37) U/L ALT (12-78) U/L Alkaline Phosphatase (45-117) U/L Total Protein (6.4-8.2) gm/dl Albumin (3.4-5.0) gm/dl Globulin (2.5-4.0) gm/dl Albumin/Globulin Ratio (0.9-2) Procalcitonin (0-0.5) ng/ml Urine Color Urine Appearance (Clear) Urine pH (4.5-7.5) Ur Specific [place] (1.000-1.030) Urine Protein (Negative) Urine Glucose (UA) (Negative) Urine Ketones (Negative) Urine Blood (Negative) Urine Nitrite (Negative) Urine Bilirubin (Negative) Urine Urobilinogen (Negative) Ur Leukocyte Esterase (Negative) Urine WBC (Auto) (0-5) /hpf Urine RBC (Auto) (0-4) /hpf U Hyaline Cast (Auto) (0-5) /lpf U Epithel Cells (Auto) (0-5) /lpf Urine Bacteria (Auto) (Negative) Urine Yeast Influenza Type A (PCR) Neg for Influ A (Neg) Influenza Type B (PCR) Neg for Influ B (Neg) 01/05/19 01/05/19 01/05/19 Range/Units 22:35 22:35 22:35 WBC (4.8-10.8) K/uL RBC (4.2-5.4) M/uL Hgb (12.0-16.0) g/dL Hct (37-47) % MCV (80-100) fL MCH (25-34) pg MCHC (32-36) g/dL RDW Std Deviation (36.4-46.3) fL RDW Coeff of [place] (11.5-14.5) % Plt Count (130-400) K/uL MPV (7.4-10.4) fL Immature Gran % (Auto) % Neut % (Auto) % Lymph % (Auto) % [place] % (Auto) % Eos % (Auto) % Baso % (Auto) % Immature Gran # (Auto) (0.00-0.02) K/uL Neut # (Auto) (1.4-6.5) K/uL Lymph # (Auto) (1.2-3.4) K/uL [place] # (Auto) (0.11-0.59) K/uL Eos # (Auto) (0-0.5) K/uL Baso # (Auto) (0-0.2) K/uL PT (9.0-12.0) Seconds INR (0.9-1.1) APTT (21.0-31.0) Seconds PTT Ratio Sodium 131 L (136-145) mmol/L Potassium 3.3 L (3.5-5.1) mmol/L Chloride 98 (98-107) mmol/L Carbon Dioxide 24 (21-32) mmol/L Anion Gap 8.0 (3-11) BUN 25 H (7-18) mg/dl Creatinine 1.49 H (0.6-1.2) mg/dl Est Cr Clr Drug Dosing 31.7 ml/min Est GFR ( Amer) 39.4 Est GFR (Non-Af Amer) 34.0 BUN/Creatinine Ratio 16.8 (10-20) Glucose 109 H (70-99) mg/dl Lactate 0.7 (0.4-2.0) mmol/L Calcium 8.1 L (8.5-10.1) mg/dl Magnesium 1.7 L (1.8-2.4) mg/dl Total Bilirubin 0.4 (0.2-1) mg/dl AST 22 (15-37) U/L ALT 36 (12-78) U/L Alkaline Phosphatase 117 (45-117) U/L Total Protein 6.5 (6.4-8.2) gm/dl Albumin 2.5 L (3.4-5.0) gm/dl Globulin 4.0 (2.5-4.0) gm/dl Albumin/Globulin Ratio 0.6 L (0.9-2) Procalcitonin 4.83 H (0-0.5) ng/ml Urine Color Urine Appearance (Clear) Urine pH (4.5-7.5) Ur Specific [place] (1.000-1.030) Urine Protein (Negative) Urine Glucose (UA) (Negative) Urine Ketones (Negative) Urine Blood (Negative) Urine Nitrite (Negative) Urine Bilirubin (Negative) Urine Urobilinogen (Negative) Ur Leukocyte Esterase (Negative) Urine WBC (Auto) (0-5) /hpf Urine RBC (Auto) (0-4) /hpf U Hyaline Cast (Auto) (0-5) /lpf U Epithel Cells (Auto) (0-5) /lpf Urine Bacteria (Auto) (Negative) Urine Yeast Influenza Type A (PCR) (Neg) Influenza Type B (PCR) (Neg) 01/05/19 Range/Units 23:10 WBC (4.8-10.8) K/uL RBC (4.2-5.4) M/uL Hgb (12.0-16.0) g/dL Hct (37-47) % MCV (80-100) fL MCH (25-34) pg MCHC (32-36) g/dL RDW Std Deviation (36.4-46.3) fL RDW Coeff of [place] (11.5-14.5) % Plt Count (130-400) K/uL MPV (7.4-10.4) fL Immature Gran % (Auto) % Neut % (Auto) % Lymph % (Auto) % [place] % (Auto) % Eos % (Auto) % Baso % (Auto) % Immature Gran # (Auto) (0.00-0.02) K/uL Neut # (Auto) (1.4-6.5) K/uL Lymph # (Auto) (1.2-3.4) K/uL [place] # (Auto) (0.11-0.59) K/uL Eos # (Auto) (0-0.5) K/uL Baso # (Auto) (0-0.2) K/uL PT (9.0-12.0) Seconds INR (0.9-1.1) APTT (21.0-31.0) Seconds PTT Ratio Sodium (136-145) mmol/L Potassium (3.5-5.1) mmol/L Chloride (98-107) mmol/L Carbon Dioxide (21-32) mmol/L Anion Gap (3-11) BUN (7-18) mg/dl Creatinine (0.6-1.2) mg/dl Est Cr Clr Drug Dosing ml/min Est GFR ( Amer) Est GFR (Non-Af Amer) BUN/Creatinine Ratio (10-20) Glucose (70-99) mg/dl Lactate (0.4-2.0) mmol/L Calcium (8.5-10.1) mg/dl Magnesium (1.8-2.4) mg/dl Total Bilirubin (0.2-1) mg/dl AST (15-37) U/L ALT (12-78) U/L Alkaline Phosphatase (45-117) U/L Total Protein (6.4-8.2) gm/dl Albumin (3.4-5.0) gm/dl Globulin (2.5-4.0) gm/dl Albumin/Globulin Ratio (0.9-2) Procalcitonin (0-0.5) ng/ml Urine Color Yellow Urine Appearance Cloudy H (Clear) Urine pH 8.0 H (4.5-7.5) Ur Specific [place] 1.014 (1.000-1.030) Urine Protein Negative (Negative) Urine Glucose (UA) Negative (Negative) Urine Ketones Negative (Negative) Urine Blood Trace H (Negative) Urine Nitrite Negative (Negative) Urine Bilirubin Negative (Negative) Urine Urobilinogen Negative (Negative) Ur Leukocyte Esterase 2+ H (Negative) Urine WBC (Auto) >30 H (0-5) /hpf Urine RBC (Auto) 5-10 H (0-4) /hpf U Hyaline Cast (Auto) 1-5 (0-5) /lpf U Epithel Cells (Auto) 5-10 H (0-5) /lpf Urine Bacteria (Auto) 4+ H (Negative) Urine Yeast Not Reportable Influenza Type A (PCR) (Neg) Influenza Type B (PCR) (Neg) Imaging Data Radiologist's Impression: Radiology results as stated below per my review and the radiologist's interpretation: XR chest 1V portable CLINICAL HISTORY: Sepsis dyspnea COMPARISON STUDY: 10/30/2017 FINDINGS: Mild stable cardiomegaly. Chronic pleural reactive changes left base. Mild Baseline emphysematous change. No acute infiltrate. IMPRESSION: Chronic change. No acute process. The above report was generated using voice recognition software. It may contain grammatical, syntax or spelling errors. Electronically signed by: Manuel Velasco M.D. 01/05/2019 10:[address] ABDOMEN & PELVIS Colonic diverticula without diverticulitis. Appendix not identified. Nonobstructive bowel gas pattern. No evidence of active GI bleed. Cardiomegaly. Some enhancement in the urothelium that could suggest inflammation. Radiologist: Renetta Trujillo MD Study read at 2341 and initial results transmitted at [id number]. Blood Pressure Blood Pressure Findings: Normal blood pressure Blood Pressure Disposition: did not require urgent referral MDM Narrative There is no leukocytosis. The patient is anemic with a hemoglobin of 9, this is a four-point drop for her. I did perform a rectal exam, stool was brown and heme-negative. There was no coagulopathy. No kidney failure. Creatinine slightly elevated at 1.49, this is consistent with dehydration. Magnesium low at 1.7. Lactic acid level was not elevated making severe sepsis less likely. There was no hepatitis. Pro-calcitonin level is elevated suggesting a bacterial infection. Urinalysis does show evidence for infection. Influenza testing was negative. Chest film did not show pneumonia or CHF. Urine culture and blood cultures are pending. Abdominal and pelvis CT does not show any bowel obstruction, no diverticulitis or abscess. There was some enhancement in the urothelium that could suggest inflammation. The patient was aggressively managed. She received IV saline. She was given IV Zofran received IV Toradol and IV Tylenol. She received IV cefepime as antibiotic coverage. She was given IV magnesium. The patient is no longer vomiting, she does seem improved but still feels weak and tired. She appears to have an acute UTI. She is dehydrated. She is vomiting and nauseated. She presents febrile. I do not think she is stable for discharge. I do think IV antibiotic's, IV hydration and symptom control is required. I did speak to the patient and medical case manager. The on-call hospitalist was consulted. Impression & Plan UTI (urinary tract infection), Vomiting, Dehydration, Fever, Weakness Discharge Plan Visit Data Chief Complaint: Flu Like Symptoms ED Provider: Mauricio eKlley Discharge Problem: UTI (urinary tract infection), Vomiting, Dehydration, Fever, Weakness Patient Disposition: Being Evaluated by Hospitalist Forms Stand Alone Forms: My [facility] Prescriptions Prescriptions: No Action ondansetron HCl [Zofran] 4 mg tablet 4 mg PO Q6 PRN (Reason: Nausea) RF: 0 potassium chloride [Klor-Con 10] 10 mEq tablet extended release 10 meq PO BID RF: 0 prednisone 1 mg tablet 3 mg PO DAILY RF: 0 nystatin 100,000 unit/gram cream 1 applic topical BID PRN (Reason: breakouts) RF: 0 hydralazine 50 mg tablet 100 mg PO TID RF: 0 triamterene-hydrochlorothiazid [Maxzide] 75-50 mg tablet 1 tab PO DAILY RF: 0 ergocalciferol (vitamin D2) [Vitamin D2] 50,000 unit capsule 50,000 unit PO MONTHLY RF: 0 Lidocaine Hcl 1% 10 ml INJ UD RF: 0 Referrals Referrals: Alexandra Wilkes MD [Primary Care Provider] - Discharge Problem: UTI (urinary tract infection) Qualifiers: Urinary tract infection type: site unspecified Hematuria presence: without hematuria Qualified Code(s): N39.0 - Urinary tract infection, site not specified Vomiting Qualifiers: Vomiting type: unspecified Vomiting Intractability: non-intractable Nausea presence: with nausea Qualified Code(s): R11.2 - Nausea with vomiting, unspecified Fever Qualifiers: Fever type: unspecified Qualified Code(s): R50.9 - Fever, unspecified The scribe's documentation has been prepared under my direction and personally reviewed by me in its entirety. I confirm that the note above accurately reflects all work, treatment, procedures, and medical decision making performed by me.
--- NOTE | 2019-01-05 22:06 | XRay Report ---
XR chest 1V portable CLINICAL HISTORY: Sepsis dyspnea COMPARISON STUDY: 10/30/2017 FINDINGS: Mild stable cardiomegaly. Chronic pleural reactive changes left base. Mild Baseline emphyse matous change. No acute infiltrate. IMPRESSION: Chronic change. No acute process. The above report was generated using voice recognition software. It may contain grammatical, syntax or spelling errors. Electronically signed by: Manuel Velasco M.D. 01/05/2019 10:05 PM
[2019-01-05 22:43] LABS: Influenza A virus by PCR Neg for Influ A (Neg); Influenza B virus by PCR Neg for Influ B (Neg)
[2019-01-05 23:05] LABS: Basophils # (auto) 0.01 K/uL (0-0.2); Basophils % (auto) 0.1 %; Hematocrit (blood only) 26.5 % (37-47); Hemoglobin 9.1 g/dL (12.0-16.0); Immature Granulocytes # (auto) 0.02 K/uL (0.00-0.02); Immature Granulocytes % (auto) 0.2 %; Lymphocytes # (auto) 0.51 K/uL (1.2-3.4); Lymphocytes % (auto) 5.8 %; Mean Corpuscular Hgb Conc 34.3 g/dL (32-36); Mean Corpuscular Volume 89.2 fL (80-100); Mean Platelet Volume 9.3 fL (7.4-10.4); Monocytes # (auto) 0.79 K/uL (0.11-0.59); Neutrophils # (auto) 7.45 K/uL (1.4-6.5); Neutrophils % (auto) 84.9 %; Platelet Count 206 K/uL (130-400); RDW Coefficient of Variation 14.6 % (11.5-14.5); RDW Standard Deviation 47.8 fL (36.4-46.3); Red Blood Count 2.97 M/uL (4.2-5.4); White Blood Count 8.78 K/uL (4.8-10.8)
[2019-01-05 23:13] LABS: INR 1.1 (0.9-1.1); Partial Thromboplastin Ratio 1.1; Partial Thromboplastin Time 30.6 Seconds (21.0-31.0); Prothrombin Time 10.9 Seconds (9.0-12.0)
[2019-01-05 23:18] LABS: Albumin Level 2.5 gm/dl (3.4-5.0); BUN Creatinine Ratio 16.8 (10-20); Calcium 8.1 mg/dl (8.5-10.1); Creatinine Clr Calc Pharmacy 31.7 ml/min; Est GFR (African American) 39.4; Magnesium 1.7 mg/dl (1.8-2.4); Potassium 3.3 mmol/L (3.5-5.1)
[2019-01-05 23:21] LABS: Albumin Globulin Ratio 0.6 (0.9-2); Bilirubin,Total 0.4 mg/dl (0.2-1); Total Protein 6.5 gm/dl (6.4-8.2)
[2019-01-05 23:45] LABS: Appearance Urine Cloudy (Clear); Bacteria Urine Automated 4+ (Negative); Bilirubin Urine Negative (Negative); Blood Urine Trace (Negative); Color Urine Yellow; Glucose Urine UA Negative (Negative); Ketones Urine Negative (Negative); Leukocyte Esterase Urine 2+ (Negative); Nitrite Urine Negative (Negative); Specific Gravity Urine 1.014 (1.000-1.030); Urobilinogen Urine Negative (Negative); WBC Urine Automated >30 /hpf (0-5)
[2019-01-05] MEDS ORDERED: MAGNESIUM SULFATE / D5W 1 GM/100 ML BAG IV ONE (23:47)
[2019-01-05] MEDS ORDERED: IOVERSOL 100ml IV PRN (23:51)
[2019-01-05 23:59] LABS: Protein Urine Negative (Negative)
[2019-01-06] MEDS ORDERED: CEFEPIME 2,000 MG in SYRINGE 7.5 ML IV STA
[2019-01-06] MEDS ORDERED: SODIUM CHLORIDE 0.9% 1000ML 500 ML IV ONE (00:30)
--- NOTE | 2019-01-06 01:15 | History & Physical Report ---
Date of Service January 06, 2019 Assessment & Plan (1) UTI (urinary tract infection): 73 y/o F Hx HTN, psoriatic arthritis, renal artery stenosis requiring stenting, GERD. Presents with progressive weakness, lower abdominal pain, nausea and vomiting. She states her weakness is most pronounced in her LEs and she needed help mobilizing today. Her weakness has been present for some time but has worsened acutely over the past 3 days. The pt presented in a similar manner the prior year and was diagnosed with a UTI. Initial labs confirm recurrence of a UTI and are also notable for hypokalemia, hypomagnesemia, NOHELIA and normocytic anemia which is new. She denies any dark stools or BRBPR and proved guaiac negative. 1) UTI - placed on Ceftriaxone pending culture results, IVF and antiemetics provided 2) Anemia - normocytic - I could not find any association with Golimumab use. This can cause aplastic anemia but she does not qualify for this diagnosis. Her renal function has been impaired during prior admissions, although it is generally intact. We have obtained iron studies and a retic count. We will also check B12 as her RDW is elevated and she reports LE weakness. There is no evidence of bleeding so unless she exhibits an acute decline, she should likely be referred to hematology. 3) NOHELIA, Hypokalemia, hypomagnesemia - due to N/V and dehydration. IVF and electrolytes provided. Repeat BMP pending. 4) HTN - cont Hydralazine - reintroduce diuretic when N/V subsides 5) RA - outpt f/u - cont Prednisone - consider stress testing if there is evidence of evolving sepsis. Full code - SCDs ending repeat CBC Total time for this admit including review of labs, meds, imaging, records - dscussion with pt and ER attending - 39 min History of Present Illness Chief Complaint: Weakness, N/V Primary Care Provider: Alexandra Wilkes MD 73 y/o F Hx HTN, psoriatic arthritis, renal artery stenosis requiring stenting, GERD. Presents with progressive weakness, lower abdominal pain, nausea and vomiting. She states her waekness is most pronounced in her LEs and she needed help mobilizing today. Her weakness has been present for some time but has worsened acutely over the past 3 days. The pt presented in a similar manner the prior year and was diagnosed with a UTI. Initial labs confirm recurrence of a UTI and are also notable for hypokalemia, hypomagnesemia, NOHELIA and normocytic anemia which is new. She denies any dark stools or BRBPR and proved guaiac negative. PMH: 1) Renal artery stenosis 2) Lyme disease 3) Psoriatic arthritis - treated with low-dose Prednisone and monthly Golimumab 4) HTN 5) GERD Surgical: Renal artery stenting Social: She does not have a history of smoking or drinking Family: Father due to complications of dementia age 90 Mother owing to complications of CHF Allergies Allergy/AdvReac Type Severity Reaction Status Date / Time fentanyl Allergy Severe throat Verified 01/05/19 22:02 closed,itchy Sulfa (Sulfonamide Allergy Unknown Unknown Verified 01/05/19 22:02 Antibiotics) ciprofloxacin [From Cipro] AdvReac Severe Nausea & Verified 01/05/19 22:03 vomiting Home Medications Home Medications Medication Instructions Recorded Confirmed Type Lidocaine Hcl 1% 10 ml INJ UD 01/05/19 01/05/19 History ergocalciferol (vitamin D2) 50,000 unit PO MONTHLY 01/05/19 01/05/19 History [Vitamin D2] hydralazine 100 mg PO TID 01/05/19 01/05/19 History nystatin 1 applic TOPICAL BID PRN 01/05/19 01/05/19 History ondansetron HCl [Zofran] 4 mg PO Q6 PRN 01/05/19 01/05/19 History potassium chloride [Klor-Con 10] 10 meq PO BID 01/05/19 01/05/19 History prednisone 3 mg PO DAILY 01/05/19 01/05/19 History triamterene-hydrochlorothiazid 1 tab PO DAILY 01/05/19 01/05/19 History [Maxzide] Past Med/Surg History Medical History Psoriasis (Chronic) Psoriatic arthritis (Chronic) Hypertension Lyme disease (Resolved 03/25/13) Social History Preferred Language: Swedish Current Living Situation: Family Feels Safe at Home: Yes Smoking Status: Never smoker Review of Systems Gen: + Malaise. weakness ENT: Denies congestion, throat pain, hearing loss Eyes: Denies acute visual changes CV: Denies CP, palpitations Pulmonary: Denies SOB, cough, wheezing GI: Nausea/vomiting, abdominal pain as reported above Musculoskeletal: Chronic joint pain due to RA - LE weakness which is acute on chronic Endocrine: Denies polydipsia, polyuria Skin: Denies acute rashes or ulcers Physical Exam Vital Signs (Past 24 Hours): Last Vital Signs Temp 37.2 C 01/05/19 23:01 Pulse 70 01/05/19 23:01 Resp 18 01/05/19 23:01 BP 128/56 L 01/05/19 23:01 Pulse Ox 94 01/05/19 23:01 Physical Exam: General: AAO x 3, no distress ENT: No erythema or exudates, no thrush Eyes: STEFFEN, EOMI Head and neck: Normocephalic, atraumatic, No JVD, neck is supple. Chest/heart: Nontender, S1,2, RRR, no murmurs, no gallops Lungs: CTAB, no wheezing or crackles Abdomen: Nontender, nondistended, BS+ Neuro: AAO x 3, speech is clear, LE strength is poor proximally BL - sensation is intact Musculoskeletal: No joint inflammation, muscle tenderness, FROM Skin: No acute rashes or ulcers Extremities: No clubbing, cyanosis, edema (1) UTI (urinary tract infection) Hematuria presence: without hematuria Urinary tract infection type: site unspecified Qualified Code(s): N39.0 - Urinary tract infection, site not specified
[2019-01-06] MEDS ORDERED: ALUMINUM/MAGNESIUM SUSP 30 ML UDC PO PRN (02:02)
[2019-01-06] MEDS ORDERED: ONDANSETRON INJ 2 MG/ML 2 ML VIAL IV PRN (02:02)
[2019-01-06] MEDS ORDERED: TRAMADOL HCL 50 MG TABLET PO PRN (02:02)
[2019-01-06] MEDS ORDERED: MAGNESIUM HYDROXIDE SUSP 30 ML UDC PO PRN (02:02)
[2019-01-06] MEDS ORDERED: POLYETHYLENE (MIRALAX) 17 GM PACK PO PRN (02:02)
[2019-01-06] MEDS: D5NSS + 20MEQ KCL 20 MEQ/1,000 ML BAG IV SCH ×2 (02:48→16:37)
[2019-01-06] MEDS: POTASSIUM CHLORIDE / WTR 10 MEQ/100 ML PLCT IV SCH ×2 (02:48→04:35)
[2019-01-06] MEDS: MAGNESIUM SULFATE / D5W 1 GM/100 ML BAG IV SCH ×2 (03:32→04:31)
[2019-01-06 05:36] LABS: Basophils # (auto) 0.02 K/uL (0-0.2); Basophils % (auto) 0.3 %; Eosinophils # (auto) 0.01 K/uL (0-0.5); Eosinophils % (auto) 0.2 %; Hematocrit (blood only) 30.7 % (37-47); Hemoglobin 10.1 g/dL (12.0-16.0); Immature Granulocytes # (auto) 0.01 K/uL (0.00-0.02); Immature Granulocytes % (auto) 0.2 %; Lymphocytes # (auto) 0.56 K/uL (1.2-3.4); Lymphocytes % (auto) 8.8 %; Mean Corpuscular Hgb Conc 32.9 g/dL (32-36); Mean Corpuscular Volume 90.8 fL (80-100); Monocytes # (auto) 0.33 K/uL (0.11-0.59); Monocytes % (auto) 5.2 %; Neutrophils # (auto) 5.45 K/uL (1.4-6.5); Neutrophils % (auto) 85.3 %; Platelet Count 192 K/uL (130-400); RDW Coefficient of Variation 14.6 % (11.5-14.5); RDW Standard Deviation 48.4 fL (36.4-46.3); Red Blood Count 3.38 M/uL (4.2-5.4); Reticulocyte % 0.9 % (0.5-2.0); Reticulocytes # 0.03 10^6/uL (0.02-0.10); White Blood Count 6.38 K/uL (4.8-10.8)
[2019-01-06] MEDS ORDERED: cefTRIAXone SODIUM 1,000 MG/50 ML BAG IV SCH (06:00)
[2019-01-06 06:01] LABS: BUN Creatinine Ratio 14.4 (10-20); Calcium 8.2 mg/dl (8.5-10.1); Creatinine Clr Calc Pharmacy 26.3 ml/min; Est GFR (African American) 31.4; Est GFR (Non-African American) 27.1; Potassium 4.1 mmol/L (3.5-5.1)
--- NOTE | 2019-01-06 06:44 | CT Scan Report ---
CT abd pelvis IV con only CLINICAL HISTORY: Diffuse abdominal pain COMPARISON STUDY: 01/31/2014 TECHNIQUE: The patient was scanned in a dynamic helical fashion during intravenous administration of 92 cc of Optiray 320. A dose lowering technique was utilized adhering to the principles of ALARA. CT DOSE: 349.69 mGy.cm FINDINGS: Lower chest: There are dependent basilar airspace opacities likely atelectatic Liver: The contrast-enhanced liver is normal in size, contour, and attenuation. There is no intrahepa tic biliary ductal dilatation. The hepatic veins and portal veins are patent. Gallbladder: Unremarkable. Spleen: Normal in size and attenuation. Pancreas: Unremarkable. Adrenal glands: Unremarkable. Kidneys: There is symmetric renal cortical enhancement. The kidneys are normal in size without hydron ephrosis. There is equivocal minor bilateral diffuse uroepithelial enhancement. Bowel: There are no transition zones indicate bowel obstruction. There are no findings to indicate ac [place] appendicitis. There is colonic diverticulosis. There is no evidence of acute diverticulitis. Peritoneum: There is no intraperitoneal free air or abdominal ascites. There are tiny fat-containing inguinal hernias. Vasculature: The abdominal aorta is normal in course and caliber. There are extensive atheromatous ca lcifications. There are bilateral renal artery stents. Adenopathy: None. Pelvic viscera: The uterus appears surgically absent. Skeletal structures: No destructive osseous lesions are seen. IMPRESSION: 1. No evidence of bowel obstruction. No evidence of free air 2. Diverticulosis. No evidence of acute diverticulitis 3. No evidence of acute appendicitis 4. Equivocal minor diffuse uroepithelial enhancement Electronically signed by: Dorian Van M.D. 01/06/2019 6:42 AM
[2019-01-06] MEDS: ACETAMINOPHEN 325 MG TAB PO PRN ×2 (06:48→18:37)
[2019-01-06] MEDS: predniSONE 1 MG TAB PO SCH (07:59)
[2019-01-06] MEDS: POTASSIUM CHLORIDE 10 MEQ TABCR PO SCH ×2 (07:59→20:23)
[2019-01-06] MEDS: HydrALAZINE TAB 50 MG TAB PO SCH ×3 (07:59→20:23)
[2019-01-06 09:42] LABS: Folate (Folic Acid) 14.64 ng/ml (>5.38)
[2019-01-06] MEDS: HYDROCORTISONE SOD 25 MG in SYRINGE 0 ML IV SCH ×2 (11:06→17:40)
[2019-01-06 18:44] LABS: BUN Creatinine Ratio 14.5 (10-20); Calcium 8.2 mg/dl (8.5-10.1); Creatinine Clr Calc Pharmacy 32.4 ml/min; Est GFR (African American) 40.4; Est GFR (Non-African American) 34.8; Magnesium 2.8 mg/dl (1.8-2.4); Potassium 4.1 mmol/L (3.5-5.1)
[2019-01-06] MEDS ORDERED: CYANOCOBALAMIN 500 MCG TABLET (VITAMIN B-12) PO ONE (19:30)
[2019-01-06] MEDS: CEFEPIME 1,000 MG in SYRINGE 0 ML IV SCH (20:24)
--- NOTE | 2019-01-06 21:07 | Hospitalist Progress Note ---
Date of Service January 06, 2019 Assessment & Plan (1) Sepsis due to gram-negative UTI: due to bacteremia/septicemia will stop rocephin and change to cefepime to cover for more potent gram negatives (pseudomonas, MDR pathogens, etc). Repeat blood cx's today to ensure sterility. Supportive care including fluids and stress-dose steroids. (2) Septicemia: see "sepsis" above (3) Hypertension: cont home meds (4) Psoriatic arthritis: on chronic prednisone therapy stress dose steroids w/ hydrocortisone (5) Hypokalemia: replace bmp am (6) Hypomagnesemia: replace and repeat level today (7) Acute kidney injury: repeat BMP tonight and in am likely due to sepsis (8) Vitamin B12 deficiency: likely the cause of anemia start b12 supplementation 1000mcg daily (9) DVT prophylaxis: start heparin 5000 BID will need PT, OT Subjective pt with active rigors during my visit she stated "I feel terrible" appetite poor today c/o midline low back pain no abd pain feels weak Constitutional: + fever, + chills, + fatigue and + anorexia Respiratory: no cough and no dyspnea Cardiovascular: no chest pain Gastrointestinal: no abdominal pain, no nausea and no vomiting Physical Exam Vital Signs (Past 24 Hours): Last Vital Signs Temp 37.2 C 01/06/19 20:20 Pulse 80 01/06/19 20:16 Resp 22 01/06/19 15:29 BP 123/56 L 01/06/19 20:16 Pulse Ox 98 01/06/19 15:29 Constitutional: + acute distress (due to rigors), + ill appearing and average body habitus ENMT: Mouth: + oral mucosal abnormality (MM dry) Respiratory: normal respiratory effort, lungs clear to auscultation Cardiovascular: RRR, no murmur, no edema Heart Sounds: normal S1 and normal S2 Vessels: posterior tibial pulses present and dorsalis pedis pulses present; no JVD Extremities: normal capillary refill Gastrointestinal (Abdomen): normal bowel sounds, soft, nontender, no hepatosplenomegaly Psychiatric: A+Ox3, euthymic affect Results & Data Laboratory Results Laboratory Results - last 24 hr 01/05/19 01/05/19 01/05/19 21:54 22:35 22:35 WBC 8.78 RBC 2.97 L Hgb 9.1 L Hct 26.5 L MCV 89.2 MCH 30.6 MCHC 34.3 RDW Std Deviation 47.8 H RDW Coeff of Galile[place] 14.6 H Plt Count 206 MPV 9.3 Immature Gran % (Auto) 0.2 Neut % (Auto) 84.9 Lymph % (Auto) 5.8 [place] % (Auto) 9.0 Eos % (Auto) 0.0 Baso % (Auto) 0.1 Reticulocyte % (Auto) Immature Gran # (Auto) 0.02 Neut # (Auto) 7.45 H Lymph # (Auto) 0.51 L [place] # (Auto) 0.79 H Eos # (Auto) 0.00 Baso # (Auto) 0.01 Reticulocyte # PT 10.9 INR 1.1 APTT 30.6 PTT Ratio 1.1 Sodium Potassium Chloride Carbon Dioxide Anion Gap BUN Creatinine Est Cr Clr Drug Dosing Est GFR ( Amer) Est GFR (Non-Af Amer) BUN/Creatinine Ratio Glucose Lactate Calcium Magnesium Iron TIBC Total Bilirubin AST ALT Alkaline Phosphatase Total Protein Albumin Globulin Albumin/Globulin Ratio Vitamin B12 Folate Procalcitonin Urine Color Urine Appearance Urine pH Ur Specific Vernal Urine Protein Urine Glucose (UA) Urine Ketones Urine Blood Urine Nitrite Urine Bilirubin Urine Urobilinogen Ur Leukocyte Esterase Urine WBC (Auto) Urine RBC (Auto) U Hyaline Cast (Auto) U Epithel Cells (Auto) Urine Bacteria (Auto) Urine Yeast Influenza Type A (PCR) Neg for Influ A Influenza Type B (PCR) Neg for Influ B 01/05/19 01/05/19 01/05/19 22:35 22:35 22:35 WBC RBC Hgb Hct MCV MCH MCHC RDW Std Deviation RDW Coeff of [place] Plt Count MPV Immature Gran % (Auto) Neut % (Auto) Lymph % (Auto) [place] % (Auto) Eos % (Auto) Baso % (Auto) Reticulocyte % (Auto) Immature Gran # (Auto) Neut # (Auto) Lymph # (Auto) [place]ro # (Auto) Eos # (Auto) Baso # (Auto) Reticulocyte # PT INR APTT PTT Ratio Sodium 131 L Potassium 3.3 L Chloride 98 Carbon Dioxide 24 Anion Gap 8.0 BUN 25 H Creatinine 1.49 H Est Cr Clr Drug Dosing 31.7 Est GFR ( Amer) 39.4 Est GFR (Non-Af Amer) 34.0 BUN/Creatinine Ratio 16.8 Glucose 109 H Lactate 0.7 Calcium 8.1 L Magnesium 1.7 L Iron TIBC Total Bilirubin 0.4 AST 22 ALT 36 Alkaline Phosphatase 117 Total Protein 6.5 Albumin 2.5 L Globulin 4.0 Albumin/Globulin Ratio 0.6 L Vitamin B12 Folate Procalcitonin 4.83 H Urine Color Urine Appearance Urine pH Ur Specific Vernal Urine Protein Urine Glucose (UA) Urine Ketones Urine Blood Urine Nitrite Urine Bilirubin Urine Urobilinogen Ur Leukocyte Esterase Urine WBC (Auto) Urine RBC (Auto) U Hyaline Cast (Auto) U Epithel Cells (Auto) Urine Bacteria (Auto) Urine Yeast Influenza Type A (PCR) Influenza Type B (PCR) 01/05/19 01/06/19 01/06/19 23:10 05:25 05:25 WBC 6.38 RBC 3.38 L Hgb 10.1 L Hct 30.7 L MCV 90.8 MCH 29.9 MCHC 32.9 RDW Std Deviation 48.4 H RDW Coeff of Galile[place] 14.6 H Plt Count 192 MPV 9.0 Immature Gran % (Auto) 0.2 Neut % (Auto) 85.3 Lymph % (Auto) 8.8 [place] % (Auto) 5.2 Eos % (Auto) 0.2 Baso % (Auto) 0.3 Reticulocyte % (Auto) 0.9 Immature Gran # (Auto) 0.01 Neut # (Auto) 5.45 Lymph # (Auto) 0.56 L [place] # (Auto) 0.33 Eos # (Auto) 0.01 Baso # (Auto) 0.02 Reticulocyte # 0.03 PT INR APTT PTT Ratio Sodium 132 L Potassium 4.1 D Chloride 100 Carbon Dioxide 24 Anion Gap 8.0 BUN 26 H Creatinine 1.80 H D Est Cr Clr Drug Dosing 26.3 Est GFR ( Amer) 31.4 Est GFR (Non-Af Amer) 27.1 BUN/Creatinine Ratio 14.4 Glucose 105 H Lactate Calcium 8.2 L Magnesium Iron 15 L TIBC 172 L Total Bilirubin AST ALT Alkaline Phosphatase Total Protein Albumin Globulin Albumin/Globulin Ratio Vitamin B12 Folate Procalcitonin Urine Color Yellow Urine Appearance Cloudy H Urine pH 8.0 H Ur Specific Vernal 1.014 Urine Protein Negative Urine Glucose (UA) Negative Urine Ketones Negative Urine Blood Trace H Urine Nitrite Negative Urine Bilirubin Negative Urine Urobilinogen Negative Ur Leukocyte Esterase 2+ H Urine WBC (Auto) >30 H Urine RBC (Auto) 5-10 H U Hyaline Cast (Auto) 1-5 U Epithel Cells (Auto) 5-10 H Urine Bacteria (Auto) 4+ H Urine Yeast Not Reportable Influenza Type A (PCR) Influenza Type B (PCR) 01/06/19 01/06/19 05:25 17:58 WBC RBC Hgb Hct MCV MCH MCHC RDW Std Deviation RDW Coeff of Galile[place] Plt Count MPV Immature Gran % (Auto) Neut % (Auto) Lymph % (Auto) [place]ferro % (Auto) Eos % (Auto) Baso % (Auto) Reticulocyte % (Auto) Immature Gran # (Auto) Neut # (Auto) Lymph # (Auto) [place]ro # (Auto) Eos # (Auto) Baso # (Auto) Reticulocyte # PT INR APTT PTT Ratio Sodium 133 L Potassium 4.1 Chloride 103 Carbon Dioxide 23 Anion Gap 7.0 BUN 21 H Creatinine 1.46 H D Est Cr Clr Drug Dosing 32.4 Est GFR ( Amer) 40.4 Est GFR (Non-Af Amer) 34.8 BUN/Creatinine Ratio 14.5 Glucose 132 H Lactate Calcium 8.2 L Magnesium 2.8 H Iron TIBC Total Bilirubin AST ALT Alkaline Phosphatase Total Protein Albumin Globulin Albumin/Globulin Ratio Vitamin B12 219 Folate 14.64 Procalcitonin Urine Color Urine Appearance Urine pH Ur Specific Vernal Urine Protein Urine Glucose (UA) Urine Ketones Urine Blood Urine Nitrite Urine Bilirubin Urine Urobilinogen Ur Leukocyte Esterase Urine WBC (Auto) Urine RBC (Auto) U Hyaline Cast (Auto) U Epithel Cells (Auto) Urine Bacteria (Auto) Urine Yeast Influenza Type A (PCR) Influenza Type B (PCR) Diagnostic Findings blood cultures + for GNR urine culture pending (1) Hypertension Hypertension type: essential hypertension Qualified Code(s): I10 - Essential (primary) hypertension
[2019-01-07] MEDS: HYDROCORTISONE SOD 25 MG in SYRINGE 0 ML IV SCH ×2 (01:45→09:34)
[2019-01-07 07:10] LABS: Hematocrit (blood only) 26.8 % (37-47); Hemoglobin 8.8 g/dL (12.0-16.0); Mean Corpuscular Hgb Conc 32.8 g/dL (32-36); Mean Corpuscular Volume 89.9 fL (80-100); Mean Platelet Volume 9.8 fL (7.4-10.4); Platelet Count 194 K/uL (130-400); RDW Coefficient of Variation 14.9 % (11.5-14.5); RDW Standard Deviation 49.1 fL (36.4-46.3); Red Blood Count 2.98 M/uL (4.2-5.4)
[2019-01-07 07:46] LABS: BUN Creatinine Ratio 14.4 (10-20); Calcium 7.9 mg/dl (8.5-10.1); Creatinine Clr Calc Pharmacy 35.5 ml/min; Est GFR (African American) 45.2; Potassium 3.7 mmol/L (3.5-5.1)
[2019-01-07] MEDS: HydrALAZINE TAB 50 MG TAB PO SCH ×3 (08:06→20:39)
[2019-01-07] MEDS: POTASSIUM CHLORIDE 10 MEQ TABCR PO SCH ×2 (08:07→20:40)
[2019-01-07] MEDS: CYANOCOBALAMIN 500 MCG TABLET (VITAMIN B-12) PO SCH (08:07)
[2019-01-07] MEDS: predniSONE 1 MG TAB PO SCH (08:07)
[2019-01-07] MEDS: CEFEPIME 1,000 MG in SYRINGE 0 ML IV SCH ×2 (09:34→20:41)
[2019-01-07] MEDS: HEPARIN SOD 5,000 UNIT/0.5 ML VIAL SQ SCH ×2 (10:35→20:45)
--- NOTE | 2019-01-07 20:25 | Hospitalist Progress Note ---
Date of Service January 07, 2019 Assessment & Plan (1) Sepsis due to gram-negative UTI: all blood cx's + for gram negative jessica. urine cx also with gram negative jessica. thus, septicemia is 2nd to UTI. cont cefepime. narrow abx once final culture results are available. repeat blood cx's from last pm pending to check for test of cure. (2) Septicemia: see "sepsis" above overall improved can wean stress dose steroids. (3) Hypertension: cont home meds (4) Psoriatic arthritis: on chronic prednisone therapy stress dose steroids w/ hydrocortisone -- wean to q12h dosing today, then back to PO prednisone tomorrow. (5) Hypokalemia: replaced and resolved bmp am (6) Hypomagnesemia: replaced and resolved (7) Acute kidney injury: resolved was likely due to sepsis bmp in am for stability (8) Vitamin B12 deficiency: likely the cause of anemia cont b12 supplementation 1000mcg daily for 1 year (9) DVT prophylaxis: heparin 5000 BID PT, OT evals updated at bedside progressing nicely Subjective patient feeling better today appetite a little improved more energy back pain better no urinary symptoms at Constitutional: no fever and no chills (had severe rigors yesterday -- now resolved) Respiratory: no cough and no dyspnea Cardiovascular: no chest pain Gastrointestinal: no abdominal pain, no nausea and no vomiting Physical Exam Vital Signs (Past 24 Hours): Last Vital Signs Temp 36.8 C 01/07/19 14:36 Pulse 66 01/07/19 14:36 Resp 14 01/07/19 14:36 BP 159/61 H 01/07/19 14:36 Pulse Ox 98 01/07/19 14:36 Constitutional: well developed, well nourished and average body habitus; no acute distress and not ill appearing looks better today ENMT: Mouth: no oral mucosal abnormality Respiratory: normal respiratory effort, lungs clear to auscultation Cardiovascular: RRR, no murmur, no edema Heart Sounds: normal S1 and normal S2 Vessels: posterior tibial pulses present and dorsalis pedis pulses present; no JVD Extremities: normal capillary refill Gastrointestinal (Abdomen): normal bowel sounds, soft, nontender, no hepatosplenomegaly Psychiatric: A+Ox3, euthymic affect Results & Data Laboratory Results Laboratory Results - last 24 hr 01/07/19 01/07/19 06:06 06:06 WBC 5.70 RBC 2.98 L Hgb 8.8 L Hct 26.8 L MCV 89.9 MCH 29.5 MCHC 32.8 RDW Std Deviation 49.1 H RDW Coeff of Galile[place] 14.9 H Plt Count 194 MPV 9.8 Sodium 135 L Potassium 3.7 Chloride 106 Carbon Dioxide 21 Anion Gap 8.0 BUN 19 H Creatinine 1.33 H Est Cr Clr Drug Dosing 35.5 Est GFR ( Amer) 45.2 Est GFR (Non-Af Amer) 39.0 BUN/Creatinine Ratio 14.4 Glucose 103 H Calcium 7.9 L (1) Hypertension Hypertension type: essential hypertension Qualified Code(s): I10 - Essential (primary) hypertension
[2019-01-07] MEDS ORDERED: HYDROCORTISONE SOD 25 MG in SYRINGE 0 ML IV SCH (21:00)
[2019-01-08 07:00] LABS: BUN Creatinine Ratio 15.4 (10-20); Calcium 8.2 mg/dl (8.5-10.1); Creatinine Clr Calc Pharmacy 41.8 ml/min; Est GFR (African American) 55.1; Est GFR (Non-African American) 47.5; Potassium 3.4 mmol/L (3.5-5.1)
[2019-01-08] MEDS: POTASSIUM CHLORIDE 10 MEQ TABCR PO SCH ×2 (08:34→20:47)
[2019-01-08] MEDS: HydrALAZINE TAB 50 MG TAB PO SCH ×3 (08:34→20:47)
[2019-01-08] MEDS: HEPARIN SOD 5,000 UNIT/0.5 ML VIAL SQ SCH ×2 (08:37→20:50)
[2019-01-08] MEDS: CEFEPIME 1,000 MG in SYRINGE 0 ML IV SCH (08:40)
[2019-01-08] MEDS ORDERED: AMPICILLIN/SULBACTAM SOD 3,000 MG in 0.9 % SODIUM CHLORIDE 100 ML IV SCH (08:45)
[2019-01-08] MEDS ORDERED: POTASSIUM CHLORIDE 10 MEQ TABCR PO ONE (09:00)
[2019-01-08] MEDS ORDERED: predniSONE 20 MG TAB PO SCH (09:00)
[2019-01-08] MEDS: CYANOCOBALAMIN 500 MCG TABLET (VITAMIN B-12) PO SCH (09:52)
[2019-01-08] MEDS: LACTOBACILLUS ACIDOPHILUS (FLORANEX) TAB PO SCH ×2 (12:20→16:52)
--- NOTE | 2019-01-08 19:48 | Hospitalist Progress Note ---
Date of Service January 08, 2019 Assessment & Plan (1) Sepsis due to gram-negative UTI: blood and urine cx's + for e. fergusonii. repeat blood cx's from 2 days ago negative and hopefully will remain negative. stop cefepime. change to IV cipro; patient counseled that nausea from prior cipro use is not true contraindication. watch on IV cipro for about 2-3 doses and if doing well on it then change to po cipro. treat total of 14 days from date of negative blood cultures. overall she is improved. wean stress dose steroids today to 40mg of prednisone. then 30mg tomorrow. and so forth. patient counseled that her rigors last pm and weakness is due to the septicemia. (2) Septicemia: see "sepsis" above overall improved can wean stress dose steroids again today. (3) Hypertension: cont home meds (4) Psoriatic arthritis: on chronic prednisone therapy stress dose steroids to PO prednisone today. (5) Hypokalemia: replace repeat level in AM (6) Hypomagnesemia: replaced and resolved repeat level in am for stability purposes (7) Acute kidney injury: resolved was likely due to sepsis bmp in am (8) Vitamin B12 deficiency: likely the cause of anemia cont b12 supplementation 1000mcg daily for 1 year repeat cbc in am for stability (9) DVT prophylaxis: heparin 5000 BID PT, OT leonidasals son updated at bedside today progressing nicely Subjective had rigors/shakes last night but no fever felt "terrible" last night but feels better today only complaint is that of weakness appetite a little better today I confirmed her cipro "allergy" -- she thinks it causes nausea but this was in the midst of an active UTI in the past Constitutional: + chills, + fatigue and + weakness; no fever and no body aches Respiratory: no cough and no dyspnea Cardiovascular: no chest pain Gastrointestinal: no abdominal pain, no nausea and no vomiting Physical Exam Vital Signs (Past 24 Hours): Last Vital Signs Temp 36.6 C 01/08/19 15:15 Pulse 72 01/08/19 15:15 Resp 22 01/08/19 15:15 BP 164/64 H 01/08/19 15:15 Pulse Ox 98 01/08/19 15:15 Constitutional: well developed, well nourished and average body habitus; no acute distress and not ill appearing looks better than yesterday ENMT: Mouth: no oral mucosal abnormality (MMM) Respiratory: normal respiratory effort, lungs clear to auscultation Cardiovascular: RRR, no murmur, no edema Heart Sounds: normal S1 and normal S2 Vessels: posterior tibial pulses present and dorsalis pedis pulses present; no JVD Extremities: normal capillary refill Gastrointestinal (Abdomen): normal bowel sounds, soft, nontender, no hepatosplenomegaly Psychiatric: A+Ox3, euthymic affect Results & Data Laboratory Results Laboratory Results - last 24 hr 01/08/19 05:45 Sodium 135 L Potassium 3.4 L Chloride 103 Carbon Dioxide 24 Anion Gap 8.0 BUN 17 Creatinine 1.13 Est Cr Clr Drug Dosing 41.8 Est GFR ( Amer) 55.1 Est GFR (Non-Af Amer) 47.5 BUN/Creatinine Ratio 15.4 Glucose 91 Calcium 8.2 L Diagnostic Findings blood/urine cx's with jaiden. maddieсветланаi repeat blood cx's negative to date (1) Hypertension Hypertension type: essential hypertension Qualified Code(s): I10 - Essential (primary) hypertension
[2019-01-08] MEDS: CIPROFLOXACIN 400 MG/200 ML BAG IV SCH (20:48)
[2019-01-09 06:41] LABS: Hematocrit (blood only) 27.6 % (37-47); Hemoglobin 9.2 g/dL (12.0-16.0); Mean Corpuscular Hgb Conc 33.3 g/dL (32-36); Mean Corpuscular Volume 88.7 fL (80-100); Mean Platelet Volume 9.4 fL (7.4-10.4); Platelet Count 217 K/uL (130-400); RDW Standard Deviation 48.8 fL (36.4-46.3); Red Blood Count 3.11 M/uL (4.2-5.4)
[2019-01-09 07:05] LABS: BUN Creatinine Ratio 17.6 (10-20); Calcium 8.3 mg/dl (8.5-10.1); Creatinine Clr Calc Pharmacy 42.6 ml/min; Est GFR (African American) 56.3; Est GFR (Non-African American) 48.5; Magnesium 1.9 mg/dl (1.8-2.4); Potassium 3.6 mmol/L (3.5-5.1)
[2019-01-09] MEDS: CYANOCOBALAMIN 500 MCG TABLET (VITAMIN B-12) PO SCH (08:21)
[2019-01-09] MEDS: HydrALAZINE TAB 50 MG TAB PO SCH ×2 (08:21→13:45)
[2019-01-09] MEDS: LACTOBACILLUS ACIDOPHILUS (FLORANEX) TAB PO SCH ×3 (08:21→16:27)
[2019-01-09] MEDS: HEPARIN SOD 5,000 UNIT/0.5 ML VIAL SQ SCH (08:22)
[2019-01-09] MEDS: POTASSIUM CHLORIDE 10 MEQ TABCR PO SCH (08:22)
[2019-01-09] MEDS: CIPROFLOXACIN 400 MG/200 ML BAG IV SCH (08:22)
[2019-01-09] MEDS ORDERED: predniSONE 10 MG TABLET PO SCH (09:00)
[2019-01-09] MEDS ORDERED: POTASSIUM CHLORIDE 10 MEQ TABCR PO SCH (10:00)
[2019-01-09] MEDS ORDERED: POTASSIUM CHLORIDE 20 MEQ TABCR PO SCH (21:00)
[2019-01-09] MEDS ORDERED: CIPROFLOXACIN 500 MG TAB PO SCH (21:00)
--- NOTE | 2019-01-10 08:22 | Discharge Summary ---
Date of Service date of admission - January 06, 2019 date of discharge - January 09, 2019 Admission HPI Per Admitting Provider 73 y/o F Hx HTN, psoriatic arthritis on chronic prednisone, renal artery stenosis requiring stenting, GERD. Presents with progressive weakness, lower abdominal pain, nausea and vomiting. She states her waekness is most pronounced in her LEs and she needed help mobilizing today. Her weakness has been present for some time but has worsened acutely over the past 3 days. The pt presented in a similar manner the prior year and was diagnosed with a UTI. Initial labs confirm recurrence of a UTI and are also notable for hypokalemia, hypomagnesemia, NOHELIA and normocytic anemia which is new. She denies any dark stools or BRBPR and proved guaiac negative. Principal Diagnosis septicemia 2nd to UTI Discharge Exam Constitutional well developed, well nourished and average body habitus; no acute distress and not ill appearing ENMT Mouth: no oral mucosal abnormality (MMM) Respiratory normal respiratory effort, lungs clear to auscultation Cardiovascular RRR, no murmur, no edema Heart Sounds: normal S1 and normal S2 Vessels: posterior tibial pulses present and dorsalis pedis pulses present; no JVD Extremities: normal capillary refill Gastrointestinal (Abdomen) normal bowel sounds, soft, nontender, no hepatosplenomegaly Psychiatric A+Ox3, euthymic affect Discharge Data Allergies Allergy/AdvReac Type Severity Reaction Status Date / Time fentanyl Allergy Severe throat Verified 01/05/19 22:02 closed,itchy Sulfa (Sulfonamide Allergy Unknown Unknown Verified 01/05/19 22:02 Antibiotics) ciprofloxacin [From Cipro] AdvReac Severe Nausea & Verified 01/09/19 12:34 vomiting Consultations PT, OT Ordered Studies CT abd/pelvis - IMPRESSION: 1. No evidence of bowel obstruction. No evidence of free air 2. Diverticulosis. No evidence of acute diverticulitis 3. No evidence of acute appendicitis 4. Equivocal minor diffuse uroepithelial enhancement Hospital Course (1) Sepsis due to gram-negative UTI: Blood and urine cultures were ultimately positive for e. fergusonii. She received broad-spectrum IV antibiotic therapy and this was narrowed to cipro prior to discharge. Stress dose steroids were employed during the stay as well. CT abd/pelvis failed to show any complicating kidney stone or pyelonephritis. Repeat blood cultures later in the stay were negative confirming test of cure. She will receive, in total, 14 days of IV/PO antibiotic therapy. 11 days of oral cipro 500mg BID will be needed after discharge. (2) Septicemia: see "sepsis" above She improved with IV fluids, IV antibiotics, and stress dose steroids. (3) Hypertension: All medications were resumed at time of discharge. She never had hypotension from her septicemia while hospitalized. (4) Psoriatic arthritis: On chronic prednisone therapy. Stress dose steroids were employed while here, and she will complete a prednisone taper at home prior to resuming her normal dosing of 3mg/day. (5) Hypokalemia: Replaced and resolved prior to discharge. (6) Hypomagnesemia: Replaced and resolved prior to discharge. (7) Acute kidney injury: resolved; was likely due to sepsis. peak Cr was 1.8, improving to 1.1 at discharge. (8) Vitamin B12 deficiency: Likely the cause of her anemia. B12 level was about 200. Vitamin B12 1000mcg daily for 1 year or perhaps lifelong (she reported a history of B12 deficiency in the past) recommended. Folic acid and iron studies were normal. Discharge hemoglobin was 9.2. Stool was heme negative. She will need repeat cbc in the near-future to confirm stability and improvement. Total Time Total Time Spent Total Time Spent (In Minutes): 40 Total Time Includes: Examination of the Patient, Discharge Planning and Medication Reconciliation Discharge Plan Discharge Items Patient Disposition: Home - Self-Care Reason For Visit: Urinary Tract Infection Discharge Diagnosis: Urinary Tract Infection; Blood Stream Infection due to the Urinary tract infection ("sepsis", "bacteremia") -- both issues resolving. Discharge Goals: Diagnostic testing and Therapeutic intervention Activity: As commented below Activity Comment: for the next 2-3 days no excessive strenuous activities Non-emergency contact: Primary Care Provider Call non-emergency contact if: you have any medication questions and your temperature is above 100.5 Follow-up/Referrals: Alexandra Wilkes MD [Primary Care Provider] - Diet: Heart Healthy Addtl Provider Instructions: From Osmar Ulloa - Hospitalist - You were treated for urinary tract infection and blood stream infection during your stay. You improved with IV fluids, extra steroids, and IV antibiotics. Repeat blood cultures later in your stay were negative. This means that the blood stream infection has resolved/has cleared. You were seen by physical therapy and cleared to go home. We also discovered that you are anemic (your red cells are mildly low). We did a work-up looking for cause(s) of your anemia and we found vitamin B12 deficiency. At this time we recommend the followin. ciprofloxacin ("cipro") 500mg twice a day for 11 days starting 01/10/2019. This is your antibiotic for your infection. 2. saccharomyces (probiotics) once daily for 10 days. This may help prevent diarrhea from the ciprofloxacin. 3. vitamin B12 (cyanocobalamin) 1000mcg once daily. You can purchase this [id number]. I would recommend that you take vitamin B12 for life since you have had deficiency in the past. 4. compazine (prochlorperazine) 5mg every 8 hours as needed for nausea or vomiting. You don't have to fill this prescription if you are feeling well and eating well. 5. plenty of fluids over the next few days as you recover from your illness. 6. take it easy - no heavy exertional activities - for the next 2-3 days the gradually increase your activity as desired/as tolerated. 7. follow-up - * see your family doctor within 5-7 days * see [facility] within 2-3 weeks for your recurrent urinary tract infections 8. prednisone - * take total of 20mg (4 tabs) on 01/10/19 * take total of 15mg (3 tabs) on 01/11/19 * take total of 10mg (2 tabs) on 01/12/19 * take total of 5mg (1 tab) on 01/13/19 * then resume your normal 3mg/day dose as previous 9. Return to [facility] if - * you have recurrent fevers over 100.5 degrees * you have worsening abdominal pain, back pain, or difficulty voiding (passing your urine) * you have severe diarrhea * you have severe vomiting * any other concerns Prescriptions: New ciprofloxacin HCl 500 mg Tablet 500 mg PO BID 11 Days Qty: 22 RF: 0 Saccharomyces boulardii 250 mg capsule 250 mg PO DAILY 10 Days Qty: 10 RF: 0 cyanocobalamin (vitamin B-12) [Vitamin B-12] 500 mcg Tablet 1,000 mcg PO QAM Qty: 90 RF: 3 prednisone 5 mg tablet 5 mg PO DIRECTED Qty: 10 RF: 0 prochlorperazine maleate [Compazine] 5 mg tablet 5 mg PO Q8H PRN (Reason: nausea and vomiting) Qty: 10 RF: 0 Continued potassium chloride [Klor-Con 10] 10 mEq tablet extended release 10 meq PO BID RF: 0 prednisone 1 mg tablet 3 mg PO DAILY RF: 0 nystatin 100,000 unit/gram cream 1 applic topical BID PRN (Reason: breakouts) RF: 0 hydralazine 50 mg tablet 100 mg PO TID RF: 0 triamterene-hydrochlorothiazid [Maxzide] 75-50 mg tablet 1 tab PO DAILY RF: 0 ergocalciferol (vitamin D2) [Vitamin D2] 50,000 unit capsule 50,000 unit PO MONTHLY RF: 0 Lidocaine Hcl 1% 10 ml INJ UD RF: 0 Discontinued ondansetron HCl [Zofran] 4 mg tablet 4 mg PO Q6 PRN (Reason: Nausea) RF: 0 Stand-Alone Forms: [facility] Discharge Orders: Discharge Order (Routine); Ordered 01/09/19 Ordered By: Osmar Ulloa Admission Data Admit Date/Time: 01/06/19 01:00 Attending Provider: Osmar Ulloa Admit Provider: Poncho Mcguire Primary Care Provider: Alexandra Wilkes Other Providers: Poncho Mcguire ; IRB Approved Study,Mckenna Service: Medical Other Interventions: Discharge Summary Assessment (RN) Last Done: 01/09/19 17:55 Pending Studies at Discharge: No DC Date/Time DO NOT enter until pt leaves facility: 01/09/19 18:29
== END 2019-01-09 18:29 | disposition home or self-care (01) | DRG 872 ==
LOC: ED 20:48 → 4E 01-06 01:00 → SUATTDRO 01-06 01:00 → 4E 01-06 01:49

== ENCOUNTER 2021-06-21 06:25 | Inpatient (IN) ==
[2021-06-21] MEDS ORDERED: SODIUM CHLORIDE 0.9% 1000ML 1,000 ML IV SCH ×2 (06:45→17:53)
[2021-06-21 07:10] LABS: Basophils # (auto) 0.01 K/uL (0-0.2); Basophils % (auto) 0.2 %; Eosinophils # (auto) 0.27 K/uL (0-0.5); Hematocrit (blood only) 33.6 % (37-47); Hemoglobin 11.3 g/dL (12.0-16.0); Immature Granulocytes # (auto) 0.01 K/uL (0.00-0.02); Immature Granulocytes % (auto) 0.2 %; Lymphocytes # (auto) 0.18 K/uL (1.2-3.4); Lymphocytes % (auto) 3.3 %; Mean Corpuscular Hemoglobin 29.4 pg (25-34); Mean Corpuscular Hgb Conc 33.6 g/dL (32-36); Mean Corpuscular Volume 87.5 fL (80-100); Mean Platelet Volume 9.6 fL (7.4-10.4); Monocytes # (auto) 0.27 K/uL (0.11-0.59); Neutrophils # (auto) 4.71 K/uL (1.4-6.5); Neutrophils % (auto) 86.3 %; Platelet Count 198 K/uL (130-400); RDW Coefficient of Variation 14.5 % (11.5-14.5); Red Blood Count 3.84 M/uL (4.2-5.4); White Blood Count 5.45 K/uL (4.8-10.8)
[2021-06-21] MEDS ORDERED: cefTRIAXone SODIUM 1,000 MG/50 ML BAG IV STA (07:12)
[2021-06-21 07:28] LABS: Alanine Aminotransferase 79 U/L (12-78); Albumin Level 2.6 gm/dl (3.4-5.0); Aspartate Aminotransferase 63 U/L (15-37); BUN Creatinine Ratio 18.1 (10-20); Blood Urea Nitrogen 22 mg/dl (7-18); Calcium 8.1 mg/dl (8.5-10.1); Carbon Dioxide 27 mmol/L (21-32); Chloride 95 mmol/L (98-107); Creatinine Clr Calc Pharmacy 36.9 ml/min; Est GFR (African American) 48.5 ml/min; Est GFR (Non-African American) 41.9 ml/min; Glucose 105 mg/dl (70-99); Magnesium 2.4 mg/dl (1.8-2.4); Sodium 131 mmol/L (136-145)
[2021-06-21 07:39] LABS: Albumin Globulin Ratio 0.6 (0.9-2); Alkaline Phosphatase 155 U/L (45-117); Bilirubin,Total 0.5 mg/dl (0.2-1); Globulin 4.2 gm/dl (2.5-4.0); Total Protein 6.8 gm/dl (6.4-8.2); Troponin I < 0.015 ng/ml (0-0.045)
[2021-06-21 07:43] LABS: Appearance Urine Clear (Clear); Bilirubin Urine Negative (Negative); Blood Urine Negative (Negative); Color Urine Dark Yellow; Epithelial Cell Urine Auto >30 /lpf (0-5); Glucose Urine UA Negative (Negative); Ketones Urine Trace (Negative); Leukocyte Esterase Urine 1+ (Negative); Nitrite Urine Negative (Negative); Protein Urine 1+ (Negative); Specific Gravity Urine 1.014 (1.000-1.030); Urobilinogen Urine Negative (Negative); WBC Urine Automated >30 /hpf (0-5); pH Urine 5.5 (4.5-7.5)
[2021-06-21 08:27] LABS: RBC Urine Automated 0-4 /hpf (0-4); Renal Epithelial Cells Urine 0-5 /lpf (0-5)
[2021-06-21 08:28] LABS: Bacteria Urine Automated 1+ (Negative)
--- NOTE | 2021-06-21 08:51 | XRay Report ---
XR chest 1V portable HISTORY: 75 years-old Female weakness . Acute weakness COMPARISON: Chest radiograph 01/05/2019 TECHNIQUE: Portable AP view of the chest FINDINGS: Cardiac silhouette is enlarged. Mild right hemidiaphragmatic elevation. Chronic interstitial coarseni ng. No pneumothorax, large pleural effusion or overt pulmonary edema. Mild blunting of the right cost ophrenic angle is likely from atelectasis. Unchanged mild right hemidiaphragmatic elevation. Degenera tive changes of the shoulders and spine. IMPRESSION: No acute process. ACT 112: Negative or not required by law. The above report was generated using voice recognition software. It may contain grammatical, syntax o r spelling errors. Electronically signed by: Iggy Gunderson M.D. 06/21/2021 8:50 AM
--- NOTE | 2021-06-21 09:44 | CT Scan Report ---
CT head/brain wo con CLINICAL HISTORY: 75 years-old Female with falls, weakness. Acute weakness with fall TECHNIQUE: Multiple axial CT images of the head were obtained without contrast. A dose lowering tech nique was utilized adhering to the principles of ALARA. COMPARISON: CT cervical spine of same day. FINDINGS: No acute intracranial hemorrhage, midline shift, intracranial mass, hydrocephalus, territorial ischem ia or abnormal extra-axial collection. Mild age-related involutional changes. The calvarium is intact. Mild mucosal thickening of the ethmoid air cells. The mastoid air cells are clear. Unremarkable soft tissues and orbits. Prior bilateral lens repair. IMPRESSION: No acute intracranial abnormality or calvarial fracture. ACT 112: Negative or not required by law. The above report was generated using voice recognition software. It may contain grammatical, syntax o r spelling errors. Electronically signed by: Iggy Gunderson M.D. 06/21/2021 9:43 AM
--- NOTE | 2021-06-21 09:47 | CT Scan Report ---
CT cervical spine wo con CT DOSE: 921.76 mGy.cm CLINICAL HISTORY: 75 years-old Female with fall, neck pain. Acute neck pain status post fall COMPARISON: Head CT of same day TECHNIQUE: Multiple axial CT images of the cervical spine were obtained without contrast. A dose low ering technique was utilized adhering to the principles of ALARA. FINDINGS: Demineralized appearance of the bones. Mild to moderate intervertebral disc space narrowing C5-C6 with mild to moderate uncovertebral spurring and small posterior annular disc bulging. Severe multilevel facet arthrosis. Convex right curvature of the mid cervical spine. Multilevel neural ev inal narrowing. No prevertebral edema. Calcified plaque of the carotid bulbs. Lung apices are clear w ithout pneumothorax. IMPRESSION: No acute cervical spine fracture or subluxation. ACT 112: Negative or not required by law. The above report was generated using voice recognition software. It may contain grammatical, syntax o r spelling errors. Electronically signed by: Iggy Gunderson M.D. 06/21/2021 9:45 AM
--- NOTE | 2021-06-21 11:59 | Electrocardiogram Report ---
Test Reason : Blood Pressure : / mmHG Vent. Rate : 060 BPM Atrial Rate : 060 BPM P-R Int : 188 ms QRS Dur : 096 ms QT Int : 486 ms P-R-T Axes : 038 -08 021 degrees QTc Int : 486 ms Normal sinus rhythm Moderate voltage criteria for LVH, may be normal variant Borderline ECG When compared with ECG of 09-MAR-2019 09:29, Nonspecific T wave abnormality no longer evident in Lateral leads Confirmed by Carter Llamas ([id number]) on 06/21/2021 11:59:09 AM Referred By: Socorro Garcia Confirmed By:Carter Llamas
[2021-06-21] MEDS ORDERED: POTASSIUM CHLORIDE / WTR 10 MEQ/100 ML PLCT IV STA (12:56)
--- NOTE | 2021-06-21 13:21 | History & Physical Report ---
Date of Service June 21, 2021 Assessment & Plan (1) Urinary tract infection: Plan: Patient with recurrent urinary tract infection. Previously she was pansensitive Klebsiella Pseudomonas, E. coli, Proteus Mirabelis. Patient was seen in the primary care office 06/16/2021 and started on Macrobid and Compazine Patient continue with urinary symptoms as she had nausea vomiting with Macrobid. Patient then began having falls Wednesday and reported emergency room In the ER she had a UA which is abnormal. Culture is pending from today, but urine culture from 06/16 is with Klebsiella pneumonia that is pansensitive Patient was started on ceftriaxone after blood cultures x2 and urinary sample was collected Currently afebrile. We will admit patient and administer IV antibiotics as patient failed outpatient therapy (2) Nausea & vomiting: Plan: Frequently gets nausea and vomiting after taking oral antibiotics. She is dehydrated. Continue IV fluids Antiemetics as needed in the form of Zofran Advance diet as tolerated (3) Ambulatory dysfunction: Plan: Patient does not typically use a walker or cane. She does report increased weakness and has had 3 falls minimum this week CT neck and CT head are negative for acute findings Will ask PT/OT to evaluate and treat We will admit on telemetry for now to rule out arrhythmia (4) Generalized weakness: Plan: Patient states that she has had generalized weakness which seems to be progressive She is to the point where she does not have the confidence that her can help her get off the floor if she falls At this time we will admit her and do PT OT evaluations treatment She does not seem to have any neurological findings on exam We will continue to monitor and treat underlying infection (5) Incomplete bladder emptying: Plan: This may contribute to recurrent UTIs We will check a bladder scan post void No indication for Lilly catheter or urology consult at this time Continue to monitor as UTI improves (6) Hypertension: Plan: We will hold the patient's triamterene/HCTZ but continue hydralazine Follow vital signs per protocol (7) Chronic kidney disease, stage II (mild): Plan: Patient appears to be slightly prerenal BUN 22 creatinine 1.24 Gently hydrate with NSS at 80 mL an hour I's and O's (8) Hyperlipidemia: Plan: Continue atorvastatin (9) Psoriatic arthritis: Plan: Patient follows with Dr. Bryson at [facility] We will continue certolizumab and prednisone 2 mg daily (10) Vitamin D deficiency: Plan: Continue ergocalciferol Outpatient management (11) Hypokalemia: Plan: Secondary to nausea/vomiting and poor p.o. intake Replace with potassium chloride Follow BMP in the morning (12) Elevated liver transaminase level: Plan: Elevated AST and ALT but bilirubin is normal Could be secondary to acute infection or from nitrofurantoin. She is not hypotensive so do not suspect acute liver injury. -Follow LFTs in the morning -Check CT abdomen/pelvis to look at the liver -Check acute hepatitis panel (13) DVT prophylaxis: Plan: Heparin 5000 units subcu every 12 hours Ambulate as tolerated Please refer to Dr. Wellington's addendum for further recommendations and corrections History of Present Illness Primary Care Provider: Alexandra Wilkes MD Attending: Dr. Wellington This is a 75-year-old female with a past medical history including psoriatic arthritis this, certolizamab use, chronic prednisone use, hypertension, recurrent UTI (pansensitive), hyperlipidemia, hypokalemia. The patient presents today with a 3-day history of falls and urinary tract infection which failed outpatient therapy. Patient initially had symptoms started on Wednesday, June 16, 2021. She went to her primary care physician and saw Socorro Garcia PA-C. She was placed on Macrobid and prochlorperazine and sent home. The patient states that she attempted to take the Macrobid but each time had nausea and vomiting. She reports that she has a pill dysphagia specifically towards antibiotics. Patient has had no fever but she does have positive sweats and chills. She denies any burning with urination. She has no hematuria. She denies any hematemesis. She has no new back pain. She has no specific abdominal pain. She has no feelings of burning or itching or tearing. She continues try to take the antibiotic but got weaker each day. She had a fall on Wednesday, , Wednesday secondary weakness. She denies any syncope or presyncope. She had no awareness of palpitations or arrhythmia. She had no prodrome. She denies loss of consciousness. Each time she states that she felt weak and that her legs will just give out. She lives at home with her who is unable to get her up after her fall. CT head and CT neck ordered by the emergency room physician were negative for acute process and no evidence of fracture or subluxation. Patient has no evidence of head wound. Patient has not had Covid and has not had exposure to Covid positive people recently. She has not been vaccinated. She does receive the annual influenza vaccination which was last received in 2019. Patient is a lifelong non-smoker The only BOTTLE LABELER surgery she had was bladder suspension performed by Dr. Solorio Allergies Allergy/AdvReac Type Severity Reaction Status Date / Time fentanyl Allergy Severe throat Verified 06/21/21 07:50 closed,itchy Sulfa (Sulfonamide Allergy Unknown Rash Verified 06/21/21 07:50 Antibiotics) Penicillins Allergy Verified 06/21/21 07:50 ciprofloxacin [From Cipro] AdvReac Severe Nausea & Verified 06/21/21 07:50 vomiting Home Medications Medication Instructions Recorded Confirmed Type prednisone 1 mg tablet 2 mg PO QAM 01/05/19 06/21/21 History acetaminophen 500 mg tablet 1,000 mg PO Q6H PRN 03/06/19 06/21/21 History (Acetaminophen Extra Strength) Saccharomyces boulardii 250 mg 250 mg PO DAILY cap 07/10/19 06/21/21 History capsule (Florastor) atorvastatin 10 mg tablet 10 mg PO DAILY #30 tab 12/01/19 06/21/21 Rx ergocalciferol (vitamin D2) 1,250 50,000 unit PO MONTHLY #14 cap 01/15/21 06/21/21 Rx mcg (50,000 unit) capsule (Vitamin D2) potassium chloride 10 mEq 10 meq PO BID #60 tab 02/18/21 06/21/21 Rx tablet,extended release (Klor-Con) triamterene 75 1 tab PO QAM #90 tab 03/12/21 06/21/21 Rx mg-hydrochlorothiazide 50 mg tablet (Maxzide) hydralazine 100 mg tablet 100 mg PO TID #90 tab 06/04/21 06/21/21 Rx nitrofurantoin 100 mg PO Q12H 7 Days #14 cap 06/16/21 06/21/21 Rx monohydrate/macrocrystals 100 mg capsule (Macrobid) prochlorperazine maleate 5 mg 5 mg PO Q8H PRN #14 tab 06/16/21 06/21/21 Rx tablet certolizumab pegol (Cimzia) 400 mg SUBCUT Q4WK 06/21/21 06/21/21 History Past Med/Surg History Medical History (Updated 06/21/21 @ 20:40 by Chaya Wellington MD) Hx of sepsis Admitted [facility] 01/05 - 01/09 for septic UTI/NOHELIA Hx: UTI (urinary tract infection) recurrent - sent to urologist - found cyst in bladder which is current issue Hypertension H/O very labile severe HTN--found to be 2/2 JOSH, now s/p RA stent placement, continues on diuretic. Hypertension Lyme disease (03/25/13) H/O, went undiagnosed for a while 2/2 underlying psoriatic arthritis. On prednisone therapy Chronically for psoriatic arthritis. Psoriatic arthritis Sepsis due to gram-negative UTI Vaginal symptom Vitamin D deficiency Surgical History H/O bladder repair surgery Bladder tack H/O: hysterectomy History of kidney surgery History of renal stent Family History Father Family history of diabetes mellitus Alzheimer disease Arthritis Father Arthritis Alzheimer disease Mother Myocardial infarction Denies family history of Ovarian cancer Prostate cancer Breast cancer Colorectal cancer Social History Smoking Status: Never smoker Second Hand Exposure: No; Do You Dip or Chew Tobacco: No; Tobacco Cessation Education Requested by Patient: No Hx Alcohol Use: No Hx Substance Use: No Preferred Language: Montenegrin Communication Ability: Effective Visual Impairment: No Limitations Hearing Ability: Use of Hearing Aid Top Collar Maker Required: No Beliefs That Will Affect Care: None marital status: Current Living Situation: Spouse current occupational status: retired Other Information That Helps Us Care for You: No Feels Safe at Home: Yes Safety Concerns: Feels Safe At This Time Childhood Exposure to Second-Hand Smoke: No Dental Care, Regularly: Yes Physical Activity Frequency: 5-6 Times per Week Seatbelt Use: always Sunscreen Use: Yes Assistive Devices: Denture - Upper and Hearing Aid - Bilateral Review of Systems Review of Systems: All systems reviewed & are unremarkable except as noted in Subjective Physical Exam Physical Exam: GENERAL : No acute distress. Talkative. Pleasant EYES: No icterus, gaze conjugate. Pupils equal round and reactive to light NOSE: No evidence of epistaxis. No evidence of breach of septum MOUTH: No lesions or candidiasis. Tongue is midline. Mucosa moist. NECK: Supple. No appreciation of carotid bruits or stridor LUNGS: Fine crackles at bilateral bases. No bronchospasm. HEART: Regular, rate controlled ABDOMEN: Soft, NT, ND, BS Present. No guarding or pain to rebound tenderness EXTREMITIES: No LE edema, pedal pulses intact and equal bilaterally NEURO: A&OX3 Results & Data Results & Data ([facility]) Vital Signs (Past 12 Hours) Vital Signs Temp Pulse Pulse Resp BP BP Pulse Ox 06/21/21 11:15 60 20 141/69 H 98 06/21/21 10:17 60 18 156/62 H 96 06/21/21 09:00 61 18 124/67 98 06/21/21 08:00 59 L 16 127/58 L 97 06/21/21 07:02 98 06/21/21 07:01 62 14 143/53 H 95 06/21/21 06:31 36.6 C 64 16 152/67 H 95 Laboratory Results 06/21/21 07:00 06/21/21 07:00 Diagnostic Findings XR chest 1V portable HISTORY: 75 years-old Female weakness . Acute weakness COMPARISON: Chest radiograph 01/05/2019 TECHNIQUE: Portable AP view of the chest FINDINGS: Cardiac silhouette is enlarged. Mild right hemidiaphragmatic elevation. Chronic interstitial coarsening. No pneumothorax, large pleural effusion or overt pulmonary edema. Mild blunting of the right costophrenic angle is likely from atelectasis. Unchanged mild right hemidiaphragmatic elevation. Degenerative changes of the shoulders and spine. IMPRESSION: No acute process. ACT 112: Negative or not required by law. The above report was generated using voice recognition software. It may contain grammatical, syntax or spelling errors. Electronically signed by: Iggy Gunderson M.D. 06/21/2021 8:50 AM Code Status & VTE Plan Code Status Full resuscitation: Level I VTE Prophylaxis Plan VTE Prophylaxis will be ordered: Yes Supervising Physician Co-Signing Physician Notes PA Supervision Note: I personally saw and examined the patient. I verified all serrano points and agree with OLE Guevara with the following exceptions and/or additions: This patient is a 75-year-old female with a history of psoriatic arthritis on chronic prednisone therapy, HTN, hyperlipidemia, here with failure of outpatient antibiotic therapy for UTI along with nausea/vomiting and weakness with multiple falls. She denies abdominal pain or back pain. Has some sweats and chills but no documented fevers. No diarrhea. History and ROS reviewed as above Vitals reviewed Gen: AAOx3, NAD HEENT: Anicteric sclerae, EOMI CV: RRR no mgr nl S1S2 Pulm: CTAB no wcr Abd: +BS soft NT ND no masses or hernias Ext: No edema Skin: No rashes, warm/dry Neuro: Full strength throughout Laboratory values reviewed Imaging reviewed 75-year-old female here with nausea/vomiting, generalized weakness with multiple falls, and UTI failing outpatient antibiotic therapy due to inability to tolerate p.o. antibiotics. Also with elevated transaminases and hypokalemia. No evidence of sepsis or hypotension -Continue IV ceftriaxone -Follow urine cultures, blood cultures -Replete potassium, hydrate with normal saline Follow BMP, LFTs in the morning PT/OT given weakness and multiple falls Suspect falls are from acute illness and generalized weakness, but not stroke PG Care Time/CCT Total # of Minutes Spent Total Time Spent with Patient: Total time spent is greater than 50% in coordination of care (as documented) at patient's floor/unit and/or counseling patient: 60 minutes Coding Level of Care Code 32105 Initial Inpt Care Lvl 3 Diagnoses Urinary tract infection N39.0 Ambulatory dysfunction R26.2 Generalized weakness R53.1 Incomplete bladder emptying R33.9 Hypertension I10 Chronic kidney disease, stage II (mild) N18.2 Hyperlipidemia E78.5 Psoriatic arthritis L40.50 Vitamin D deficiency E55.9 DVT prophylaxis Z29.9 Nausea & vomiting R11.2 Hypokalemia E87.6 Elevated liver transaminase level R74.01 Time Spent (min) 60
--- NOTE | 2021-06-21 15:30 | Emergency Department Note ---
History of Present Illness General Chief complaint: Urinary Symptoms Stated complaint: UTI DOES NOT FEEL ANY BETTER Source: patient and EMS Mode of arrival: EMS Limitations: no limitations History of Present Illness Provider complaint: UTI, nausea, frequent falls Maximum Pain Intensity: 4 This patient is a 75-year-old female who presents to the emergency department with complaints of UTI. Patient has been taking Macrobid along with prochlorperazine as prescribed by her PCP for this infection for the last 5 days. Patient states she has been falling frequently at home for the last 3 day s. They came to the emergency department to be evaluated 3 days ago but there was a very long wait and left prior to evaluation. Patient states her is elderly and has difficulty picking her up off of the floor. She does not believe that she injured herself but does complain of some neck pain. She hit her head today on the door jam during one of the falls. Patient states she is generally not able to tap tolerate antibiotics by mouth due to severe nausea but does not have difficulty with them intravenously. She denies any recurrent vomiting, fevers, back pain. She does admit to several episodes of diarrhea. Home Medications Medication Instructions Recorded Confirmed Type prednisone 1 mg tablet 2 mg PO QAM 01/05/19 06/21/21 History acetaminophen 500 mg tablet 1,000 mg PO Q6H PRN 03/06/19 06/21/21 History (Acetaminophen Extra Strength) Saccharomyces boulardii 250 mg 250 mg PO DAILY cap 07/10/19 06/21/21 History capsule (Florastor) atorvastatin 10 mg tablet 10 mg PO DAILY #30 tab 12/01/19 06/21/21 Rx ergocalciferol (vitamin D2) 1,250 50,000 unit PO MONTHLY #14 cap 01/15/21 06/21/21 Rx mcg (50,000 unit) capsule (Vitamin D2) potassium chloride 10 mEq 10 meq PO BID #60 tab 02/18/21 06/21/21 Rx tablet,extended release (Klor-Con) triamterene 75 1 tab PO QAM #90 tab 03/12/21 06/21/21 Rx mg-hydrochlorothiazide 50 mg tablet (Maxzide) hydralazine 100 mg tablet 100 mg PO TID #90 tab 06/04/21 06/21/21 Rx nitrofurantoin 100 mg PO Q12H 7 Days #14 cap 06/16/21 06/21/21 Rx monohydrate/macrocrystals 100 mg capsule (Macrobid) prochlorperazine maleate 5 mg 5 mg PO Q8H PRN #14 tab 06/16/21 06/21/21 Rx tablet certolizumab pegol (Cimzia) 400 mg SUBCUT Q4WK 06/21/21 06/21/21 History Allergies Allergy/AdvReac Type Severity Reaction Status Date / Time fentanyl Allergy Severe throat Verified 06/21/21 07:50 closed,itchy Sulfa (Sulfonamide Allergy Unknown Rash Verified 06/21/21 07:50 Antibiotics) Penicillins Allergy Verified 06/21/21 07:50 ciprofloxacin [From Cipro] AdvReac Severe Nausea & Verified 06/21/21 07:50 vomiting Past Med/Surg History Medical History Hx of sepsis Admitted [facility] 01/05 - 01/09 for septic UTI/NOHELIA Hx: UTI (urinary tract infection) recurrent - sent to urologist - found cyst in bladder which is current issue Hypertension H/O very labile severe HTN--found to be 2/2 JOSH, now s/p RA stent placement, continues on diuretic. Hypertension Lyme disease (03/25/13) H/O, went undiagnosed for a while 2/2 underlying psoriatic arthritis. On prednisone therapy Chronically for psoriatic arthritis. Psoriatic arthritis Sepsis due to gram-negative UTI Vaginal symptom Vitamin D deficiency Surgical History H/O bladder repair surgery Bladder tack H/O: hysterectomy History of kidney surgery History of renal stent Family History Father Family history of diabetes mellitus Alzheimer disease Arthritis Father Arthritis Alzheimer disease Mother Myocardial infarction Denies family history of Ovarian cancer Prostate cancer Breast cancer Colorectal cancer Social History Smoking Status: Never smoker Second Hand Exposure: No; Do You Dip or Chew Tobacco: No; Tobacco Cessation Education Requested by Patient: No Hx Alcohol Use: No Hx Substance Use: No Preferred Language: Danish Communication Ability: Effective Visual Impairment: No Limitations Hearing Ability: Use of Hearing Aid 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 and A total of 10 systems reviewed and were otherwise negative Physical Exam Vital Signs Vital Signs - 24 hr 06/21/21 06:31 06/21/21 07:01 06/21/21 07:02 Temperature 36.6 C Temperature Source Oral Pulse Rate 64 62 Pulse Rate [Right Finger] Pulse Rate from SpO2 Sensor 62 Respiratory Rate 16 14 Respiratory Depth Normal Blood Pressure 152/67 H 143/53 H Blood Pressure [Right Arm] Blood Pressure Mean 95 83 Blood Pressure Mean [Right Arm] Pulse Oximetry 95 95 98 Oxygen Delivery Method Room Air Room Air Sepsis Recent Fever Within 48 Hours No Sepsis New/Unexplained Change in Mental Status N/A Sepsis Action Taken by Nursing No Action Required 06/21/21 08:00 06/21/21 09:00 06/21/21 10:17 Temperature Temperature Source Pulse Rate 59 L 61 60 Pulse Rate [Right Finger] Pulse Rate from SpO2 Sensor Respiratory Rate 16 18 18 Respiratory Depth Blood Pressure 127/58 L 124/67 156/62 H Blood Pressure [Right Arm] Blood Pressure Mean 81 86 93 Blood Pressure Mean [Right Arm] Pulse Oximetry 97 98 96 Oxygen Delivery Method Room Air Sepsis Recent Fever Within 48 Hours Sepsis New/Unexplained Change in Mental Status Sepsis Action Taken by Nursing 06/21/21 11:15 Temperature Temperature Source Pulse Rate Pulse Rate [Right Finger] 60 Pulse Rate from SpO2 Sensor Respiratory Rate 20 Respiratory Depth Blood Pressure Blood Pressure [Right Arm] 141/69 H Blood Pressure Mean Blood Pressure Mean [Right Arm] 93 Pulse Oximetry 98 Oxygen Delivery Method Room Air Sepsis Recent Fever Within 48 Hours Sepsis New/Unexplained Change in Mental Status Sepsis Action Taken by Nursing Vital signs reviewed. General: Well-appearing elderly 75-year-old female, in no significant distress. HEENT: No scleral icterus, PERRLA, neck supple. Moist mucous membranes Cardiovascular: Regular rate and rhythm, no extra sounds. Systolic ejection murmur Pulmonary: Clear to auscultation bilaterally, normal work of breathing. Abdomen: Soft, diffuse abdominal tenderness but no rebound or guarding, nondistended, positive bowel sounds. Musculoskeletal: Atraumatic, no peripheral edema. Neurologic: Patient awake alert and oriented x 3 Skin: Warm, dry, no rash Course Administered Medications Heparin Sodium (Porcine) (Heparin Sod 5,000 Unit/0.5 Ml Vial) 5,000 units SQ Q12 KELSIE Stop: 07/21/21 20:59 Last Admin: 06/21/21 20:22 Dose: 5,000 units Documented by: [id number] Hydralazine HCl (Hydralazine Tab 50 Mg Tab) 100 mg PO TID KELSIE Stop: 07/21/21 17:52 Last Admin: 06/21/21 20:21 Dose: 100 mg Documented by: [id number] Admin: 06/21/21 18:47 Dose: 100 mg Documented by: [id number] Sodium Chloride (Nss 1000ml) 1,000 mls @ 80 mls/hr IV .[id number] [facility] Stop: 07/21/21 17:52 Last Infusion: 06/21/21 21:21 Dose: 80 mls/hr Documented by: [id number] Infusion: 06/21/21 20:54 Dose: 0 mls/hr Documented by: [id number] Infusion: 06/21/21 20:27 Dose: 80 mls/hr Documented by: [id number] Infusion: 06/21/21 19:50 Dose: 0 mls/hr Documented by: [id number] Admin: 06/21/21 18:08 Dose: 80 mls/hr Documented by: [id number] Ceftriaxone Sodium 2,000 mg/ (Dextrose) 70 mls @ 140 mls/hr IV DAILY@1900 [facility] Stop: 06/26/21 18:59 Last Infusion: 06/21/21 19:17 Dose: 0 mls/hr Documented by: [id number] Admin: 06/21/21 18:47 Dose: 140 mls/hr Documented by: [id number] Ondansetron HCl (Ondansetron Inj 2 Mg/Ml 2 Ml Vial) 4 mg IV Q6H PRN PRN Reason: Nausea Stop: 07/21/21 17:52 Last Admin: 06/21/21 22:46 Dose: 4 mg Documented by: [id number] Potassium Chloride (Potassium Chloride 10 Meq Tabcr) 10 meq PO BID KELSIE Stop: 07/21/21 20:59 Last Admin: 06/21/21 20:21 Dose: 10 meq Documented by: [id number] Discontinued Medications Sodium Chloride (Nss 1000ml) 1,000 mls @ 125 mls/hr IV .Q8H KELSIE Stop: 06/21/21 14:44 Last Infusion: 06/21/21 13:56 Dose: 0 mls/hr Documented by: [id number] Admin: 06/21/21 07:03 Dose: 125 mls/hr Documented by: [id number] Ceftriaxone Sodium (Rocephin) 1,000 mg in 50 mls @ 100 mls/hr IV NOW STA Stop: 06/21/21 07:41 Last Infusion: 06/21/21 08:09 Dose: 0 mls/hr Documented by: [id number] Admin: 06/21/21 07:31 Dose: 100 mls/hr Documented by: [id number] Potassium Chloride (K Lucien / Wtr) 10 meq in 100 mls @ 100 mls/hr IV Q1H STA Stop: 06/21/21 13:55 Last Infusion: 06/21/21 15:02 Dose: 0 mls/hr Documented by: [id number] Admin: 06/21/21 13:42 Dose: 100 mls/hr Documented by: [id number] Potassium Chloride (K Lucien / Wtr) 10 meq in 100 mls @ 100 mls/hr IV Q1H KELSIE Stop: 06/21/21 19:59 Last Infusion: 06/21/21 21:42 Dose: 0 mls/hr Documented by: [id number] Infusion: 06/21/21 21:21 Dose: 100 mls/hr Documented by: [id number] Infusion: 06/21/21 20:54 Dose: 0 mls/hr Documented by: [id number] Infusion: 06/21/21 20:28 Dose: 100 mls/hr Documented by: [id number] Infusion: 06/21/21 19:50 Dose: 0 mls/hr Documented by: [id number] Admin: 06/21/21 19:28 Dose: 100 mls/hr Documented by: [id number] Infusion: 06/21/21 19:28 Dose: 100 mls/hr Documented by: [id number] Admin: 06/21/21 18:28 Dose: 100 mls/hr Documented by: [id number] Medical Decision Making Differential Diagnosis Appendicitis, diverticulitis, UTI, obstruction, mesenteric ischemia, aortic pathology, inflammatory bowel disease, renal colic, PUD, pancreatitis, biliary pathology, hernia, volvulus, constipation, as well as other pathologies. Medical Records Attestation: I reviewed the patient's medical records. Home Medications Current Medication List: was personally reviewed by me Laboratory Data Attestation: I reviewed the patient's lab results. Result diagrams: 06/21/21 07:00 06/21/21 07:00 Lab Results 06/21/21 06/21/21 06/21/21 Range/Units 07:00 07:00 07:00 WBC 5.45 (4.8-10.8) K/uL RBC 3.84 L (4.2-5.4) M/uL Hgb 11.3 L (12.0-16.0) g/dL Hct 33.6 L (37-47) % MCV 87.5 (80-100) fL MCH 29.4 (25-34) pg MCHC 33.6 (32-36) g/dL RDW Std Deviation 47.0 H (36.4-46.3) fL RDW Coeff of Galileo 14.5 (11.5-14.5) % Plt Count 198 (130-400) K/uL MPV 9.6 (7.4-10.4) fL Immature Gran % (Auto) 0.2 % Neut % (Auto) 86.3 % Lymph % (Auto) 3.3 % Jerome % (Auto) 5.0 % Eos % (Auto) 5.0 % Baso % (Auto) 0.2 % Neut # (Auto) 4.71 (1.4-6.5) K/uL Lymph # (Auto) 0.18 L (1.2-3.4) K/uL Jerome # (Auto) 0.27 (0.11-0.59) K/uL Eos # (Auto) 0.27 (0-0.5) K/uL Baso # (Auto) 0.01 (0-0.2) K/uL Immature Gran # (Auto) 0.01 (0.00-0.02) K/uL Sodium 131 L (136-145) mmol/L Potassium 3.0 L (3.5-5.1) mmol/L Chloride 95 L (98-107) mmol/L Carbon Dioxide 27 (21-32) mmol/L Anion Gap 9.0 (3-11) BUN 22 H (7-18) mg/dl Creatinine 1.24 H (0.6-1.2) mg/dl Est Cr Clr Drug Dosing 36.9 ml/min Est GFR ( Amer) 48.5 ml/min Est GFR (Non-Af Amer) 41.9 ml/min BUN/Creatinine Ratio 18.1 (10-20) Glucose 105 H (70-99) mg/dl Lactate 1.2 (0.4-2.0) mmol/L Calcium 8.1 L (8.5-10.1) mg/dl Magnesium 2.4 (1.8-2.4) mg/dl Total Bilirubin 0.5 (0.2-1) mg/dl AST 63 H (15-37) U/L ALT 79 H (12-78) U/L Alkaline Phosphatase 155 H (45-117) U/L Troponin I < 0.015 (0-0.045) ng/ml Total Protein 6.8 (6.4-8.2) gm/dl Albumin 2.6 L (3.4-5.0) gm/dl Globulin 4.2 H (2.5-4.0) gm/dl Albumin/Globulin Ratio 0.6 L (0.9-2) TSH 0.770 (0.300-4.500) uIu/ml Urine Color Urine Appearance (Clear) Urine pH (4.5-7.5) Ur Specific [place] (1.000-1.030) Urine Protein (Negative) Urine Glucose (UA) (Negative) Urine Ketones (Negative) Urine Blood (Negative) Urine Nitrite (Negative) Urine Bilirubin (Negative) Urine Urobilinogen (Negative) Ur Leukocyte Esterase (Negative) Urine WBC (Auto) (0-5) /hpf Urine RBC (Auto) (0-4) /hpf U Hyaline Cast (Auto) (0-5) /lpf U Epithel Cells (Auto) (0-5) /lpf Urine Bacteria (Auto) (Negative) Ur Renal Epithelial Cell (0-5) /lpf Urine Yeast COVID-19 Eval Order SARS-CoV-2 (PCR) (Negative) 06/21/21 06/21/21 06/21/21 Range/Units 07:30 12:20 12:20 WBC (4.8-10.8) K/uL RBC (4.2-5.4) M/uL Hgb (12.0-16.0) g/dL Hct (37-47) % MCV (80-100) fL MCH (25-34) pg MCHC (32-36) g/dL RDW Std Deviation (36.4-46.3) fL RDW Coeff of Galileo (11.5-14.5) % Plt Count (130-400) K/uL MPV (7.4-10.4) fL Immature Gran % (Auto) % Neut % (Auto) % Lymph % (Auto) % Jerome % (Auto) % Eos % (Auto) % Baso % (Auto) % Neut # (Auto) (1.4-6.5) K/uL Lymph # (Auto) (1.2-3.4) K/uL Jerome # (Auto) (0.11-0.59) K/uL Eos # (Auto) (0-0.5) K/uL Baso # (Auto) (0-0.2) K/uL Immature Gran # (Auto) (0.00-0.02) K/uL Sodium (136-145) mmol/L Potassium (3.5-5.1) mmol/L Chloride (98-107) mmol/L Carbon Dioxide (21-32) mmol/L Anion Gap (3-11) BUN (7-18) mg/dl Creatinine (0.6-1.2) mg/dl Est Cr Clr Drug Dosing ml/min Est GFR ( Amer) ml/min Est GFR (Non-Af Amer) ml/min BUN/Creatinine Ratio (10-20) Glucose (70-99) mg/dl Lactate (0.4-2.0) mmol/L Calcium (8.5-10.1) mg/dl Magnesium (1.8-2.4) mg/dl Total Bilirubin (0.2-1) mg/dl AST (15-37) U/L ALT (12-78) U/L Alkaline Phosphatase (45-117) U/L Troponin I (0-0.045) ng/ml Total Protein (6.4-8.2) gm/dl Albumin (3.4-5.0) gm/dl Globulin (2.5-4.0) gm/dl Albumin/Globulin Ratio (0.9-2) TSH (0.300-4.500) uIu/ml Urine Color Dark Yellow Urine Appearance Clear (Clear) Urine pH 5.5 (4.5-7.5) Ur Specific [place] 1.014 (1.000-1.030) Urine Protein 1+ H (Negative) Urine Glucose (UA) Negative (Negative) Urine Ketones Trace H (Negative) Urine Blood Negative (Negative) Urine Nitrite Negative (Negative) Urine Bilirubin Negative (Negative) Urine Urobilinogen Negative (Negative) Ur Leukocyte Esterase 1+ H (Negative) Urine WBC (Auto) >30 H (0-5) /hpf Urine RBC (Auto) 0-4 (0-4) /hpf U Hyaline Cast (Auto) 1-5 (0-5) /lpf U Epithel Cells (Auto) >30 H (0-5) /lpf Urine Bacteria (Auto) 1+ H (Negative) Ur Renal Epithelial Cell 0-5 (0-5) /lpf Urine Yeast Not Reportable COVID-19 Eval Order Covid19 at [facility] SARS-CoV-2 (PCR) NEGATIVE (Negative) Imaging Data Radiologist's Impression: Chest X-Ray 06/21/21 06:43 XR chest 1V portable HISTORY: 75 years-old Female weakness . Acute weakness COMPARISON: Chest radiograph 01/05/2019 TECHNIQUE: Portable AP view of the chest FINDINGS: Cardiac silhouette is enlarged. Mild right hemidiaphragmatic elevation. Chronic interstitial coarsening. No pneumothorax, large pleural effusion or overt pulmonary edema. Mild blunting of the right costophrenic angle is likely from atelectasis. Unchanged mild right hemidiaphragmatic elevation. Degenerative changes of the shoulders and spine. IMPRESSION: No acute process. ACT 112: Negative or not required by law. The above report was generated using voice recognition software. It may contain grammatical, syntax or spelling errors. Electronically signed by: Iggy Gunderson M.D. 06/21/2021 8:[address] 06/21/21 08:56 CT cervical spine wo con CT DOSE: 921.76 mGy.cm CLINICAL HISTORY: 75 years-old Female with fall, neck pain. Acute neck pain status post fall COMPARISON: Head CT of same day TECHNIQUE: Multiple axial CT images of the cervical spine were obtained without contrast. A dose lowering technique was utilized adhering to the principles of ALARA. FINDINGS: Demineralized appearance of the bones. Mild to moderate intervertebral disc space narrowing C5-C6 with mild to moderate uncovertebral spurring and small posterior annular disc bulging. Severe multilevel facet arthrosis. Convex right curvature of the mid cervical spine. Multilevel neural foraminal narrowing. No prevertebral edema. Calcified plaque of the carotid bulbs. Lung apices are clear without pneumothorax. IMPRESSION: No acute cervical spine fracture or subluxation. ACT 112: Negative or not required by law. The above report was generated using voice recognition software. It may contain grammatical, syntax or spelling errors. Electronically signed by: Iggy Gunderson M.D. 06/21/2021 9:[address] 06/21/21 08:56 CT head/brain wo con CLINICAL HISTORY: 75 years-old Female with falls, weakness. Acute weakness with fall TECHNIQUE: Multiple axial CT images of the head were obtained without contrast. A dose lowering technique was utilized adhering to the principles of ALARA. COMPARISON: CT cervical spine of same day. FINDINGS: No acute intracranial hemorrhage, midline shift, intracranial mass, hydrocep halus, territorial ischemia or abnormal extra-axial collection. Mild age-related involutional changes. The calvarium is intact. Mild mucosal thickening of the ethmoid air cells. The mastoid air cells are clear. Unremarkable soft tissues and orbits. Prior bilateral lens repair. IMPRESSION: No acute intracranial abnormality or calvarial fracture. ACT 112: Negative or not required by law. The above report was generated using voice recognition software. It may contain grammatical, syntax or spelling errors. Electronically signed by: Iggy Gunderson M.D. 06/21/2021 9:43 AM ECG Data Attestation: I personally reviewed and interpreted this ECG as follows: Indication: + weakness Rate (beats per minute): 60 Rhythm: + normal sinus ECG Intervals/blocks: + Normal QRS and + Prolonged QT (486) ECG [place]: + Normal ECG ST segments: + Normal ST segments ECG Findings: + Q waves (Anterior); no PACs or no PVCs Comparison ECG Date: from (03/09/19) Change: the following changes noted (Lateral T wave abnormality has improved.) Blood Pressure Blood Pressure Findings: Normal blood pressure Blood Pressure Disposition: did not require urgent referral Head Trauma GCS Score: 15 MDM Narrative This patient was evaluated and appeared to be in no significant distress. IV access was obtained and laboratory work was drawn. An order for cardiac mon itoring was placed and the patient is noted to be in a normal sinus rhythm at 62 bpm. Patient's blood culture results were reviewed. She has grown out a pansensitive Klebsiella. She was medicated with IV ceftriaxone after repeat UA was collected. Patient does have a normal WBC. She was hydrated with normal saline solution. Sodium is 131 with potassium of 3.0. I did speak with the patient and her at the bedside. They discussed the difficulties of keeping her safe at home and the patient tolerating her medications. Given her allergies to sulfa, penicillin and Cipro in addition to her frequent falls, it is felt that evaluation by the hospitalist service may be in her best interest. The [facility] hospitalist group was consulted. Impression & Plan Acute UTI, Generalized weakness, Hypokalemia, Falls frequently Discharge Plan Visit Data Chief Complaint: Urinary Symptoms Stated Complaint: UTI DOES NOT FEEL ANY BETTER ED Provider: Alejandra Giles Discharge Problem: Acute UTI, Generalized weakness, Hypokalemia, Falls frequently Patient Disposition: Admitted As Inpatient Discharge Instructions Interventions: ED Discharge Assessment Last Done: 06/21/21 17:18
[2021-06-21] MEDS ORDERED: POLYETHYLENE (MIRALAX) 17 GM PACK PO PRN (17:53)
[2021-06-21] MEDS ORDERED: ALUMINUM/MAGNESIUM SUSP 30 ML UDC PO PRN (17:53)
[2021-06-21] MEDS ORDERED: MAGNESIUM HYDROXIDE SUSP 30 ML UDC PO PRN (17:53)
[2021-06-21] MEDS ORDERED: ONDANSETRON INJ 2 MG/ML 2 ML VIAL IV PRN (17:53)
[2021-06-21] MEDS ORDERED: ACETAMINOPHEN 500 MG TAB PO PRN (18:00)
[2021-06-21] MEDS: SODIUM CHLORIDE 0.9% 1000ML 1,000 ML IV SCH (18:08)
[2021-06-21] MEDS: POTASSIUM CHLORIDE / WTR 10 MEQ/100 ML PLCT IV SCH ×2 (18:28→19:28)
[2021-06-21] MEDS: cefTRIAXone SODIUM 2,000 MG in DEXTROSE 5% 50 ML IV SCH (18:47)
[2021-06-21] MEDS: hydrALAZINE TAB 50 MG TAB PO SCH ×2 (18:47→20:21)
[2021-06-21] MEDS ORDERED: cefTRIAXone SODIUM 1,000 MG in DEXTROSE 5% 50 ML IV SCH (19:00)
[2021-06-21] MEDS: POTASSIUM CHLORIDE 10 MEQ TABCR PO SCH (20:21)
[2021-06-21] MEDS: HEPARIN SOD 5,000 UNIT/0.5 ML VIAL SQ SCH (20:22)
--- NOTE | 2021-06-21 21:52 | CT Scan Report ---
ABDOMEN AND PELVIS CT WITHOUT CONTRAST CT DOSE: 316.13 mGy.cm HISTORY: Acute nausea and vomiting with elevated LFTs and urinary tract infection N/V, abn LFTs, UTI TECHNIQUE: Multiaxial CT images of the abdomen and pelvis were performed without contrast. A dose lo wering technique was utilized adhering to the principles of ALARA. COMPARISON STUDY: CT abdomen pelvis 01/05/2019 FINDINGS: Trace pericardial effusion. Coronary artery calcifications. Small pleural effusions, left greater jean n right. Mild dependent bibasilar opacities. No pneumatosis or pneumoperitoneum. The unenhanced splee n, moderately atrophic pancreas and adrenal glands are unremarkable. Mildly contracted gallbladder. T here is equivocal gallbladder wall thickening with pericholecystic infiltration. Hepatic steatosis. M ild nonspecific bilateral perinephric stranding. No renal or ureteral calculi or hydronephrosis. Unre markable urinary bladder. The uterus appears surgically absent. No adnexal mass lesions. Extensive at herosclerosis of the aorta without aneurysm. No adenopathy. No bowel obstruction or bowel wall thickening. Colonic diverticulosis without acute diverticulitis. N ormal appendix. No ascites or mesenteric formation. Tiny fat filled periumbilical hernia. Unremarkabl e soft tissues. Degenerative changes of the spine, pelvis and hips. No acute fracture. Multilevel shante tral canal stenosis of the lumbar spine. Lumbar levoscoliosis. IMPRESSION: 1. No bowel obstruction or bowel wall thickening. Normal appendix. 2. Colonic diverticulosis. 3. Mildly contracted gallbladder with equivocal wall thickening and pericholecystic infiltration. Fin dings could be correlated with right upper quadrant ultrasound. 4. Hepatic steatosis. 5. Small pleural effusions with bibasilar opacities suggestive of atelectasis. ACT 112: Negative or not required by law. The above report was generated using voice recognition software. It may contain grammatical, syntax o r spelling errors. Electronically signed by: Iggy Gunderson M.D. 06/21/2021 9:50 PM
[2021-06-22] MEDS: SODIUM CHLORIDE 0.9% 1000ML 1,000 ML IV SCH (06:09)
[2021-06-22 06:40] LABS: Basophils # (auto) 0.02 K/uL (0-0.2); Basophils % (auto) 0.4 %; Eosinophils # (auto) 0.51 K/uL (0-0.5); Eosinophils % (auto) 9.2 %; Hematocrit (blood only) 29.9 % (37-47); Immature Granulocytes # (auto) 0.01 K/uL (0.00-0.02); Immature Granulocytes % (auto) 0.2 %; Lymphocytes # (auto) 0.76 K/uL (1.2-3.4); Lymphocytes % (auto) 13.7 %; Mean Corpuscular Hemoglobin 29.2 pg (25-34); Mean Corpuscular Hgb Conc 33.4 g/dL (32-36); Mean Corpuscular Volume 87.2 fL (80-100); Mean Platelet Volume 9.2 fL (7.4-10.4); Monocytes % (auto) 7.2 %; Neutrophils # (auto) 3.86 K/uL (1.4-6.5); Neutrophils % (auto) 69.3 %; Platelet Count 208 K/uL (130-400); RDW Coefficient of Variation 14.9 % (11.5-14.5); Red Blood Count 3.43 M/uL (4.2-5.4); White Blood Count 5.56 K/uL (4.8-10.8)
[2021-06-22 07:22] LABS: Albumin Level 2.3 gm/dl (3.4-5.0); BUN Creatinine Ratio 16.3 (10-20); Bilirubin Direct 0.1 mg/dl (0-0.2); Bilirubin,Total 0.3 mg/dl (0.2-1); Calcium 7.9 mg/dl (8.5-10.1); Creatinine Clr Calc Pharmacy 49.3 ml/min; Est GFR (African American) 68.7 ml/min; Est GFR (Non-African American) 59.3 ml/min; Magnesium 2.2 mg/dl (1.8-2.4); Potassium 3.2 mmol/L (3.5-5.1); Total Protein 6.1 gm/dl (6.4-8.2)
[2021-06-22] MEDS ORDERED: POTASSIUM CHLORIDE CRTAB 20 MEQ TABCR PO STA (07:58)
[2021-06-22] MEDS: hydrALAZINE TAB 50 MG TAB PO SCH ×3 (09:00→20:24)
[2021-06-22] MEDS: POTASSIUM CHLORIDE 10 MEQ TABCR PO SCH ×2 (09:00→20:24)
[2021-06-22] MEDS: ATORVASTATIN 10 MG TAB PO SCH (09:01)
[2021-06-22] MEDS: predniSONE 1 MG TAB PO SCH (09:01)
[2021-06-22] MEDS: SACCHAROMYCES BOULARDII 250 MG CAP PO SCH (09:01)
[2021-06-22] MEDS: HEPARIN SOD 5,000 UNIT/0.5 ML VIAL SQ SCH ×2 (09:02→20:24)
--- NOTE | 2021-06-22 14:00 | Hospitalist Progress Note ---
Date of Service June 22, 2021 Assessment & Plan (1) Urinary tract infection: Plan: Patient with recurrent urinary tract infection. Previously she was pansensitive Klebsiella Pseudomonas, E. coli, Proteus Mirabelis. Patient was seen in the primary care office 06/16/2021 and started on Macrobid and Compazine Patient continue with urinary symptoms as she had nausea vomiting with Macrobid. Patient then began having falls Wednesday and reported emergency room Urine culture with Corynbact.sp not urealyt -sensitivities pending, however urine culture from 06/16 shows pansensitive Klebsiella Continue ceftriaxone. (Day #2) Continue treat as patient failed outpatient therapy (2) Nausea & vomiting: Plan: Resolved Frequently gets nausea and vomiting after taking oral antibiotics. Patient now tolerating diet. Will discontinue IV fluids Antiemetics as needed in the form of Zofran Advance diet as tolerated (3) Ambulatory dysfunction: Plan: Patient does not typically use a walker or cane. She does report increased weakness and has had 3 falls minimum this week CT neck and CT head are negative for acute findings PT/OT to evaluate and treat No evidence of arrhythmia on telemetry. Will transfer to medical floor (4) Generalized weakness: Plan: Patient states that she has had generalized weakness which seems to be progressive She is to the point where she does not have the confidence that her can help her get off the floor if she falls Awaiting PT/OT evaluations and treatment She does not seem to have any neurological findings on exam We will continue to monitor and treat underlying infection (5) Incomplete bladder emptying: Plan: This may contribute to recurrent UTIs Check a bladder scan post void No indication for Lilly catheter or urology consult at this time Continue to monitor as UTI improves (6) Hypertension: Plan: Held the patient's triamterene/HCTZ but continued hydralazine on admission as the patient seemed dry IV fluids now discontinued Discharge home on usual home medication Follow vital signs per protocol while inpatient (7) Chronic kidney disease, stage II (mild): Plan: Improved BUN 15 creatinine 0.93 IV fluids discontinued Encourage oral intake I's and O's (8) Hyperlipidemia: Plan: Continue atorvastatin (9) Psoriatic arthritis: Plan: Patient follows with Dr. Bryson at [facility] We will continue certolizumab and prednisone 2 mg daily (10) Vitamin D deficiency: Plan: Continue ergocalciferol Outpatient management (11) Hypokalemia: Plan: Secondary to nausea/vomiting and poor p.o. intake Replace with potassium chloride Potassium continues to be low at 3.2 mmol/L. * Potassium chloride 40 mill equivalents p.o. ordered 06/22/2020 1 AM Follow serial labs (12) Elevated liver transaminase level: Plan: Elevated AST and ALT but bilirubin is normal * AST and ALT are now within normal limits and the alkaline phosphatase is trending downward Could be secondary to acute infection or from nitrofurantoin. She is not hypotensive so do not suspect acute liver injury. -Follow LFTs in the morning -CT abdomen/pelvis to look at the liver * Mildly contracted gallbladder with equivocal wall thickening and pericholecystic infiltration. Findings could be correlated with right upper quadrant ultrasound. -Acute hepatitis panel is pending (13) DVT prophylaxis: Plan: Heparin 5000 units subcu every 12 hours Ambulate as tolerated Disposition-continued stay as she historically cannot tolerate oral antibiotics- needs at least 3 days of IV antibiotics prior to discharge to home Please refer to Dr. Wellington's addendum for further recommendations and corrections Admission and Anticipated Discharge Date Admission Date: June 21, 2021 Supervising Physician Co-Signing Physician Notes PA Supervision Note: I did not personally see or examine the patient today, but I verified all serrano points of OLE Guevara's assessment and plan with the following exceptions/additions: None Subjective Attending: Dr. Wellington Patient seen and examined at bedside. She states that she feels much better. She got a pretty good night sleep last night. She has no fever. She denies any burning or itching. She has no chest pain or tightness. She denies any abdomin al pain. She is urinating well without hematuria. She denies any diarrhea. Review of Systems Review of Systems: All systems reviewed & are unremarkable except as noted in Subjective Physical Exam Physical Exam: GENERAL : No acute distress EYES: No icterus, gaze conjugate NOSE: No evidence of epistaxis MOUTH: No lesions or candidiasis NECK: Supple LUNGS: Faint crackles at bilateral bases. No bronchospasm. Good inspirational effort. HEART: Regular, rate controlled ABDOMEN: Soft, NT, ND, BS Present EXTREMITIES: No LE edema, pedal pulses intact and equal bilaterally NEURO: A&OX3 Results & Data Results & Data ([facility]) Vital Signs (Past 12 Hours) Vital Signs Temp Pulse Pulse Resp BP Pulse Ox 06/22/21 12:43 36.9 C 65 18 130/62 94 06/22/21 08:02 60 06/22/21 07:36 36.7 C 63 18 152/65 H 94 06/22/21 03:08 36.8 C 68 17 131/70 92 06/22/21 02:20 37.1 C 73 17 144/70 H 95 Laboratory Results 06/22/21 06:27 06/22/21 06:27 Diagnostic Findings No further imaging since admission PG Care Time/CCT Total # of Minutes Spent Total Time Spent with Patient: Total time spent is greater than 50% in coordination of care (as documented) at patient's floor/unit and/or counseling patient: 20 minutes Coding Level of Care Code 51090 Subseq Hosp Care Lvl 2 Diagnoses Urinary tract infection N39.0 Nausea & vomiting R11.2 Ambulatory dysfunction R26.2 Generalized weakness R53.1 Incomplete bladder emptying R33.9 Hypertension I10 Chronic kidney disease, stage II (mild) N18.2 Hyperlipidemia E78.5 Psoriatic arthritis L40.50 Vitamin D deficiency E55.9 Hypokalemia E87.6 Elevated liver transaminase level R74.01 DVT prophylaxis Z29.9 Time Spent (min) 20
[2021-06-22] MEDS: cefTRIAXone SODIUM 2,000 MG in DEXTROSE 5% 50 ML IV SCH (18:40)
[2021-06-23 08:23] LABS: Hepatitis B Surf Ag Rflx Conf Neg (Neg)
[2021-06-23 08:52] LABS: Hepatitis C IgG 13Yrs+Old_Rflx Neg (Neg)
[2021-06-23] MEDS: SACCHAROMYCES BOULARDII 250 MG CAP PO SCH (09:11)
[2021-06-23] MEDS: ATORVASTATIN 10 MG TAB PO SCH (09:11)
[2021-06-23] MEDS: hydrALAZINE TAB 50 MG TAB PO SCH ×2 (09:11→13:05)
[2021-06-23] MEDS: predniSONE 1 MG TAB PO SCH (09:11)
[2021-06-23] MEDS: POTASSIUM CHLORIDE 10 MEQ TABCR PO SCH (09:11)
[2021-06-23] MEDS: HEPARIN SOD 5,000 UNIT/0.5 ML VIAL SQ SCH (10:33)
[2021-06-23] MEDS ORDERED: POTASSIUM CHLORIDE CRTAB 20 MEQ TABCR PO STA (13:41)
[2021-06-23] MEDS: cefTRIAXone SODIUM 2,000 MG in DEXTROSE 5% 50 ML IV SCH (14:20)
--- NOTE | 2021-06-23 14:36 | Discharge Summary ---
Date of Service June 23, 2021 Admission HPI Per Admitting Provider Attending: Dr. Wellington This is a 75-year-old female with a past medical history including psoriatic arthritis this, certolizamab use, chronic prednisone use, hypertension, recurrent UTI (pansensitive), hyperlipidemia, hypokalemia. The patient presents today with a 3-day history of falls and urinary tract infection which failed outpatient therapy. Patient initially had symptoms started on Wednesday, June 16, 2021. She went to her primary care physician and saw Socorro Garcia PA-C. She was placed on Macrobid and prochlorperazine and sent home. The patient states that she attempted to take the Macrobid but each time had nausea and vomiting. She reports that she has a pill dysphagia specifically towards antibiotics. Patient has had no fever but she does have positive sweats and chills. She denies any burning with urination. She has no hematuria. She denies any hematemesis. She has no new back pain. She has no specific abdominal pain. She has no feelings of burning or itching or tearing. She continues try to take the antibiotic but got weaker each day. She had a fall on Wednesday, , Wednesday secondary weakness. She denies any syncope or presyncope. She had no awareness of palpitations or arrhythmia. She had no prodrome. She denies loss of consciousness. Each time she states that she felt weak and that her legs will just give out. She lives at home with her who is unable to get her up after her fall. CT head and CT neck ordered by the emergency room physician were negative for acute process and no evidence of fracture or subluxation. Patient has no evidence of head wound. Patient has not had Covid and has not had exposure to Covid positive people recently. She has not been vaccinated. She does receive the annual influenza vaccination which was last received in 2019. Patient is a lifelong non-smoker The only [employer] surgery she had was bladder suspension performed by Dr. Solorio Discharge Data Allergies Allergy/AdvReac Type Severity Reaction Status Date / Time fentanyl Allergy Severe throat Verified 06/21/21 07:50 closed,itchy Sulfa (Sulfonamide Allergy Unknown Rash Verified 06/21/21 07:50 Antibiotics) Penicillins Allergy Verified 06/21/21 07:50 ciprofloxacin [From Cipro] AdvReac Severe Nausea & Verified 06/21/21 07:50 vomiting Consultations 06/21/21 12:04 ED Decision to Admit Stat Ordered Studies 06/21/21 08:56 CT cervical spine wo con Stat CT head/brain wo con Stat 06/21/21 17:53 CT abd pelvis wo con Urgent Hospital Course (1) Urinary tract infection: Patient with recurrent urinary tract infection. Previously she was pansensitive Klebsiella Pseudomonas, E. coli, Proteus Mirabelis. Patient was seen in the primary care office 06/16/2021 and started on Macrobid and Compazine Patient continue with urinary symptoms as she had nausea vomiting with Macrobid. Patient then began having falls Wednesday and reported emergency room Urine culture with Corynbact.sp not urealyt -sensitivities pending, however urine culture from 06/16 shows pansensitive Klebsiella Continue ceftriaxone. (Day #2) Continue treat as patient failed outpatient therapy (2) Nausea & vomiting: Resolved Frequently gets nausea and vomiting after taking oral antibiotics. Patient now tolerating diet. Will discontinue IV fluids Antiemetics as needed in the form of Zofran Advance diet as tolerated (3) Ambulatory dysfunction: Patient does not typically use a walker or cane. She does report increased weakness and has had 3 falls minimum this week CT neck and CT head are negative for acute findings PT/OT to evaluate and treat No evidence of arrhythmia on telemetry. Will transfer to medical floor (4) Generalized weakness: Patient states that she has had generalized weakness which seems to be progressive She is to the point where she does not have the confidence that her can help her get off the floor if she falls Awaiting PT/OT evaluations and treatment She does not seem to have any neurological findings on exam We will continue to monitor and treat underlying infection (5) Incomplete bladder emptying: This may contribute to recurrent UTIs Check a bladder scan post void No indication for Lilly catheter or urology consult at this time Continue to monitor as UTI improves (6) Hypertension: Held the patient's triamterene/HCTZ but continued hydralazine on admission as the patient seemed dry IV fluids now discontinued Discharge home on usual home medication Follow vital signs per protocol while inpatient (7) Chronic kidney disease, stage II (mild): Improved BUN 15 creatinine 0.93 IV fluids discontinued Encourage oral intake I's and O's (8) Hyperlipidemia: Continue atorvastatin (9) Psoriatic arthritis: Patient follows with Dr. Bryson at [facility] We will continue certolizumab and prednisone 2 mg daily (10) Vitamin D deficiency: Continue ergocalciferol Outpatient management (11) Hypokalemia: Secondary to nausea/vomiting and poor p.o. intake Replace with potassium chloride Potassium continues to be low at 3.2 mmol/L. * Potassium chloride 40 mill equivalents p.o. ordered 06/22/2020 1 AM Follow serial labs (12) Elevated liver transaminase level: Elevated AST and ALT but bilirubin is normal * AST and ALT are now within normal limits and the alkaline phosphatase is trending downward Could be secondary to acute infection or from nitrofurantoin. She is not hypotensive so do not suspect acute liver injury. -Follow LFTs in the morning -CT abdomen/pelvis to look at the liver * Mildly contracted gallbladder with equivocal wall thickening and pericholecystic infiltration. Findings could be correlated with right upper quadrant ultrasound. -Acute hepatitis panel is pending (13) DVT prophylaxis: Heparin 5000 units subcu every 12 hours Ambulate as tolerated Disposition-continued stay as she historically cannot tolerate oral antibiotics- needs at least 3 days of IV antibiotics prior to discharge to home Please refer to Dr. Wellington's addendum for further recommendations and corrections Discharge Plan Discharge Items Patient Disposition: Home - Home Health Services Reason For Visit: UTI/WEAKNESS/MULTIPLE FALLS Discharge Diagnosis: Urinary Tract Infection Activity: Resume your previous activity Non-emergency contact: Primary Care Provider Call non-emergency contact if: you have any medication questions Follow-up/Referrals: Alexandra Wilkes MD [Primary Care Provider] - Diet: Heart Healthy Ambulatory Orders: Basic Metabolic Panel (Routine) Timeframe: 1 Week Location: Determined by Patient Ordered By: Osmar Little Attending Provider Instructions: You were admitted to [facility] from June 21 - 2020 due to urinary tract infection and weakness. You were diagnosed with acute urinary tract infection. This was treated wtih 3 days of ceftriaxone and recommend completing a total course of antibiotics for 7 days with trimethoprim. If this antibiotic causing nausea and vomiting recommend discontinuing and following up with your primary care physician for ongoing management. You were also noted to have a low potassium. Suspect this was a combination of vomiting with hydrochlorothiazide use. Please continue on your usual blood pressure medications and potassium supplementation and follow up with repeat basic metab olic panel as ordered in approximately 1 week. Pending Studies at Discharge: No Stand-Alone Forms: My [facility], Smoking Cessation Medications and DC Order Prescriptions: New trimethoprim 100 mg tablet 100 mg PO BID 4 Days Qty: 8 RF: 0 Continued potassium chloride [Klor-Con 10] 10 mEq tablet extended release 10 meq PO BID Qty: 60 RF: 5 triamterene-hydrochlorothiazid [Maxzide] 75-50 mg tablet 1 tab PO QAM Qty: 90 RF: 3 hydralazine 100 mg tablet 100 mg PO TID Qty: 90 RF: 5 atorvastatin 10 mg tablet 10 mg PO DAILY Qty: 30 RF: 11 ergocalciferol (vitamin D2) [Vitamin D2] 1,250 mcg (50,000 unit) capsule 50,000 unit PO MONTHLY Qty: 14 RF: 0 prochlorperazine maleate 5 mg tablet 5 mg PO Q8H PRN (Reason: nausea and vomiting) Qty: 14 RF: 0 Saccharomyces boulardii [Florastor] 250 mg capsule 250 mg PO DAILY RF: 0 prednisone 1 mg tablet 2 mg PO QAM RF: 0 acetaminophen [Acetaminophen Extra Strength] 500 mg Tablet 1,000 mg PO Q6H PRN (Reason: Pain) RF: 0 Cimzia 400 mg/2 mL (200 mg/mL x 2) Syringe Kit 400 mg SUBCUT Q4WK RF: 0 Discontinued nitrofurantoin monohyd/m-cryst [Macrobid] 100 mg capsule 100 mg PO Q12H 7 Days Qty: 14 RF: 0 Discharge Orders: Discharge Order (Routine); Ordered 06/23/21 Ordered By: Osmar Valenzuela Admission Data Admit Date/Time: 06/21/21 12:56 Attending Provider: Osmar Valenzuela Admit Provider: Chaya Wellington Primary Care Provider: Alexandra Wilkes Other Providers: Chaya Wellington ; [facility] Coding Diagnoses Urinary tract infection N39.0 Nausea & vomiting R11.2 Ambulatory dysfunction R26.2 Generalized weakness R53.1 Incomplete bladder emptying R33.9 Hypertension I10 Chronic kidney disease, stage II (mild) N18.2 Hyperlipidemia E78.5 Psoriatic arthritis L40.50 Vitamin D deficiency E55.9 Hypokalemia E87.6 Elevated liver transaminase level R74.01 DVT prophylaxis Z29.9
[2021-06-24 13:26] LABS: Hepatitis A Antibody IgM NON-REACTIVE (NON-REACTIVE); Hepatitis B Core Antibody IgM NON-REACTIVE (NON-REACTIVE)
[2021-07-09] MEDS ORDERED: ERGOCALCIFEROL 50,000 UNITS 1250 MCG CAP PO SCH (09:00)
== END 2021-06-23 15:32 | disposition home health service (06) | DRG 690 ==
LOC: ED 06:25 → 2N 12:56 → SUATTDRO 12:56 → 2N 17:18 → 3W 06-22 22:17
DX: R33.9 Retention of urine, unspecified; N39.0 Urinary tract infection, site not specified; N18.2 Chronic kidney disease, stage 2 (mild); R29.6 Repeated falls; R74.01 Elevation of levels of liver transaminase levels; L40.50 Arthropathic psoriasis, unspecified; E87.6 Hypokalemia; E78.5 Hyperlipidemia, unspecified; E55.9 Vitamin D deficiency, unspecified; I12.9 Hypertensive chronic kidney disease with stage 1 through stage 4 chronic kidney disease, or unspecified chronic kidney disease

== ENCOUNTER 2023-03-17 10:41 | Observation (INO) ==
[2023-03-17] MEDS ORDERED: CEFEPIME 2,000 MG/20 ML VIAL IV STA (11:24)
[2023-03-17] MEDS ORDERED: SODIUM CHLORIDE 0.9% 1000ML 1,000 ML IV SCH ×2 (11:30→18:03)
--- NOTE | 2023-03-17 11:30 | Emergency Department Note ---
Impression & Plan Nausea & vomiting, Acute UTI (urinary tract infection), Acidosis, lactic ED Provider Note ED Provider Note NAME: RAFIQ LOPEZ AGE:77 SEX: Female : 1945 ARRIVES VIA: Private vehicle INFORMANT: Patient ED PROVIDER(s): Anabelle Thomason DO CHIEF COMPLAINT: Nausea and vomiting HPI: This is a 77-year-old female presents emergency department due to concern for nausea and vomiting. Patient diagnosed yesterday with UTI by her PCP and started on Macrobid per her report. Patient states she has had urinary tract i nfections previously, and has also been septic from a urine infection. Patient states she first began having symptoms of UTI 2 weeks ago. Patient states she took 2 doses of the Macrobid. She states this morning she then subsequently had multiple episodes of nausea and vomiting and began having very bad shaking chills. She denies abdominal pain or back pain. PAST MEDICAL HISTORY:See Below PAST SURGICAL HISTORY:See Below FAMILY HISTORY:See Below SOCIAL HISTORY:See Below HOME MEDICATIONS:See Below ALLERGIES:See Below VITALS:See Below PHYSICAL EXAMINATION: GENERAL: alert, well appearing, well nourished, no distress, non-toxic EYE EXAM: normal conjunctiva, PERRL and EOM's grossly intact OROPHARYNX: no exudate, no erythema, lips, buccal mucosa, and tongue normal and mucous membranes are moist NECK: supple, no nuchal rigidity, no adenopathy, non-tender LUNGS: Clear to auscultation. Normal chest wall mechanics, no w/r/r HEART: no murmurs, S1 normal and S2 normal ABDOMEN: abdomen soft, non-tender, normo-active bowel sounds, no masses, no rebound or guarding. BACK: Back is symmetrical on inspection and there is no deformity, no midline tenderness, no CVA tenderness. SKIN: no rashes, petechiae, orbruising UPPER EXTREMITIES: upper extremities are grossly normal. FROM, nml pulses b/l. LOWER EXTREMITIES: No pitting edema. FROM, nml pulses b/l. NEURO EXAM: Normal sensorium, cranial nerves II-XII grossly intact, normal speech, no facial droop,nogross weakness of arms, no gross weakness of legs. Gross sensation intact. No ataxia. Vital Signs: reviewed and remarkable Differential Diagnosis: Differential: UTI, Urethritis, Pyelonephritis, NOHELIA, dehydration, ureterolithiasis, Hyperglycemia, Yeast, PID, Hemorrhagic Cystitis, amongst other pathologies entertained. MEDICAL DECISION MAKING: This is a 77-year-old female presents emergency department due to concern for nausea and vomiting in the setting of recent diagnosis of UTI. Labs drawn and sent, IV established, EKG and chest x-ray performed at bedside and interpreted by me and patient monitored on telemetry. She was started on IV fluids and given empiric IV antibiotics due to concern for evolving sepsis. Patient sent for CT imaging additionally to evaluate for pyelonephritis. No evidence of fulminant pyelonephritis or other obstructive process. No evidence of NOHELIA. Patient was noted to have an elevated lactic acid initially greater than 4. This did improve after getting 30 mL/KG of IV fluids to a little over 2. Patient still having rigors at bedside and due to concern for evolving bacteremia/sepsis, case discussed with hospitalist for additional evaluation and management. Patient's urine culture was reviewed in the EMR, sensitivities are still pending. Consultation(s): 1550: DIscussed with Zaida, with [facility] hospitalist team. ER Treatment Provided: See below Diagnostics Interpreted By Me: -ECG: [] -Cardiac Monitoring: An order was placed for continuous cardiac monitoring. The monitor shows a rate of 80 with normal sinus rhythm. -Laboratory studies: As stated above and show below. -Imaging studies: X-ray Chest: A single view study of the chest was reviewed and was negative for cardiomegaly, focal infiltrate, effusion, pulmonary edema, or wide mediastinum. Triage Nursing Note Reviewed Prior/Outside Records Reviewed - prior urine cultures reviewed Past Med/Surg History Medical History Hx of sepsis Admitted [facility] 01/05 - 01/09 for septic UTI/NOHELIA Hx: UTI (urinary tract infection) recurrent - sent to urologist - found cyst in bladder which is current issue Hypertension H/O very labile severe HTN--found to be 2/2 JOSH, now s/p RA stent placement, continues on diuretic. Hypertension Lyme disease (03/25/13) H/O, went undiagnosed for a while 2/2 underlying psoriatic arthritis. On prednisone therapy Chronically for psoriatic arthritis. Psoriatic arthritis Surgical History H/O bladder repair surgery Bladder tack H/O: hysterectomy History of kidney surgery History of renal stent Family History Father Family history of diabetes mellitus Alzheimer disease Arthritis Father Arthritis Alzheimer disease Mother Myocardial infarction Denies family history of Ovarian cancer Prostate cancer Breast cancer Colorectal cancer Social History Smoking Status: Never smoker Second Hand Exposure: No; Do You Dip or Chew Tobacco: No; Hx Alcohol Use: No Hx Substance Use: No Preferred Language: Mosotho Communication Ability: Effective Visual Impairment: No Limitations Hearing Ability: Use of Hearing Aid Eyeglass Frames Polisher Required: No Beliefs That Will Affect Care: None marital status: / Current Living Situation: Family Current Living Situation Comment: lives with daughter current occupational status: retired How many Children do You have: 4 Feels Safe at Home: Yes Safety Concerns: Feels Safe At This Time Childhood Exposure to Second-Hand Smoke: No Diet: regular caffeine: Yes during the past year weight has: remained stable Dental Care, Regularly: Yes Physical Activity Frequency: Daily Seatbelt Use: always Sunscreen Use: Yes Assistive Devices: Denture - Upper and Hearing Aid - Bilateral Allergies Allergies Allergy/AdvReac Type Severity Reaction Status Date / Time fentanyl Allergy Severe throat Verified 03/16/23 08:38 closed,itchy Sulfa (Sulfonamide Allergy Unknown Rash Verified 03/16/23 08:38 Antibiotics) Penicillins Allergy Verified 03/16/23 08:38 ciprofloxacin [From Cipro] AdvReac Severe Nausea & Verified 03/16/23 08:38 vomiting Home Meds Home Medications Medication Instructions Recorded Confirmed prednisone 1 mg tablet 2 mg PO QAM 01/05/19 03/17/23 acetaminophen 500 mg tablet 1,000 mg PO Q6H PRN Pain 03/06/19 03/17/23 (Acetaminophen Extra Strength) Saccharomyces boulardii 250 mg 250 mg PO DAILY 07/10/19 03/17/23 capsule (Florastor) certolizumab pegol 400 mg/2 mL 400 mg subcut Q4WK 06/21/21 03/17/23 (200 mg/mL x2) subcutaneous syringe kit (Cimzia) calcipotriene 0.005 % scalp 1 applic topical DIRECTED PRN 03/17/23 03/17/23 solution Dry Skin Previous Rx's Medication Instructions Recorded triamterene 75 1 tab PO QAM #90 tabs 03/03/22 mg-hydrochlorothiazide 50 mg tablet (Maxzide) ergocalciferol (vitamin D2) 1,250 50,000 unit PO MONTHLY #14 caps 03/10/22 mcg (50,000 unit) capsule (Vitamin D2) hydralazine 100 mg tablet 100 mg PO TID #90 tabs 04/30/22 atorvastatin 20 mg tablet 20 mg PO DAILY #30 tabs 06/10/22 potassium chloride 10 mEq 10 meq PO BID #60 tabs 11/26/22 tablet,extended release (Klor-Con) nitrofurantoin 100 mg PO BID 5 days #10 caps 03/16/23 monohydrate/macrocrystals 100 mg capsule (Macrobid) Results & Data (ED) Vital Signs Vital Signs - 24 hr 03/17/23 10:49 03/17/23 11:16 03/17/23 11:35 Temperature 37.1 C 36.4 C L Temperature Source Temporal Artery Scan Oral Pulse Rate 105 H Pulse Rate [Apical] 90 Pulse Rate from SpO2 Sensor Respiratory Rate 24 15 Respiratory Effort / Characteristics Spontaneous Moaning Blood Pressure 149/62 H Blood Pressure [Right Arm] 184/68 H Blood Pressure Mean 91 Blood Pressure Mean [Right Arm] 106 Pulse Oximetry 100 97 98 Oxygen Delivery Method Room Air Room Air Room Air Sepsis New/Unexplained Change in Mental Status N/A Sepsis Action Taken by Nursing No Action Required 03/17/23 12:19 03/17/23 11:19 03/17/23 11:30 Temperature Temperature Source Pulse Rate 89 88 88 Pulse Rate [Apical] Pulse Rate from SpO2 Sensor 88 Respiratory Rate 16 28 H Respiratory Effort / Characteristics Blood Pressure Blood Pressure [Right Arm] Blood Pressure Mean Blood Pressure Mean [Right Arm] Pulse Oximetry 98 Oxygen Delivery Method Sepsis New/Unexplained Change in Mental Status Sepsis Action Taken by Nursing 03/17/23 11:36 03/17/23 11:36 03/17/23 11:46 Temperature Temperature Source Pulse Rate 88 Pulse Rate [Apical] Pulse Rate from SpO2 Sensor 90 Respiratory Rate 24 Respiratory Effort / Characteristics Blood Pressure 163/80 H 182/93 H Blood Pressure [Right Arm] Blood Pressure Mean 107 122 Blood Pressure Mean [Right Arm] Pulse Oximetry 96 Oxygen Delivery Method Sepsis New/Unexplained Change in Mental Status Sepsis Action Taken by Nursing 03/17/23 11:46 03/17/23 12:00 03/17/23 12:00 Temperature Temperature Source Pulse Rate 95 H Pulse Rate [Apical] Pulse Rate from SpO2 Sensor 95 H 96 H Respiratory Rate 24 29 H Respiratory Effort / Characteristics Blood Pressure 143/104 H Blood Pressure [Right Arm] Blood Pressure Mean 117 Blood Pressure Mean [Right Arm] Pulse Oximetry 95 Oxygen Delivery Method Sepsis New/Unexplained Change in Mental Status Sepsis Action Taken by Nursing 03/17/23 12:15 03/17/23 12:15 03/17/23 12:30 Temperature Temperature Source Pulse Rate 89 Pulse Rate [Apical] Pulse Rate from SpO2 Sensor 90 Respiratory Rate 20 Respiratory Effort / Characteristics Blood Pressure 157/57 H 166/59 H Blood Pressure [Right Arm] Blood Pressure Mean 90 94 Blood Pressure Mean [Right Arm] Pulse Oximetry Oxygen Delivery Method Sepsis New/Unexplained Change in Mental Status Sepsis Action Taken by Nursing 03/17/23 12:30 03/17/23 12:45 03/17/23 12:45 Temperature Temperature Source Pulse Rate 90 85 Pulse Rate [Apical] Pulse Rate from SpO2 Sensor 90 91 H Respiratory Rate 19 25 H Respiratory Effort / Characteristics Blood Pressure 169/74 H Blood Pressure [Right Arm] Blood Pressure Mean 105 Blood Pressure Mean [Right Arm] Pulse Oximetry Oxygen Delivery Method Sepsis New/Unexplained Change in Mental Status Sepsis Action Taken by Nursing 03/17/23 13:00 03/17/23 13:00 03/17/23 13:15 Temperature Temperature Source Pulse Rate Pulse Rate [Apical] Pulse Rate from SpO2 Sensor Respiratory Rate 26 H 18 Respiratory Effort / Characteristics Blood Pressure 161/62 H Blood Pressure [Right Arm] Blood Pressure Mean 95 Blood Pressure Mean [Right Arm] Pulse Oximetry Oxygen Delivery Method Sepsis New/Unexplained Change in Mental Status Sepsis Action Taken by Nursing 03/17/23 13:15 03/17/23 13:30 03/17/23 13:30 Temperature Temperature Source Pulse Rate Pulse Rate [Apical] Pulse Rate from SpO2 Sensor Respiratory Rate 30 H Respiratory Effort / Characteristics Blood Pressure 158/62 H 156/129 H Blood Pressure [Right Arm] Blood Pressure Mean 94 138 Blood Pressure Mean [Right Arm] Pulse Oximetry Oxygen Delivery Method Sepsis New/Unexplained Change in Mental Status Sepsis Action Taken by Nursing 03/17/23 13:47 03/17/23 13:47 03/17/23 14:00 Temperature Temperature Source Pulse Rate 86 Pulse Rate [Apical] Pulse Rate from SpO2 Sensor Respiratory Rate 17 Respiratory Effort / Characteristics Blood Pressure 174/58 H 167/70 H Blood Pressure [Right Arm] Blood Pressure Mean 96 102 Blood Pressure Mean [Right Arm] Pulse Oximetry Oxygen Delivery Method Sepsis New/Unexplained Change in Mental Status Sepsis Action Taken by Nursing 03/17/23 14:00 03/17/23 14:15 03/17/23 14:15 Temperature Temperature Source Pulse Rate 91 H 101 H Pulse Rate [Apical] Pulse Rate from SpO2 Sensor Respiratory Rate 20 26 H Respiratory Effort / Characteristics Blood Pressure 164/82 H Blood Pressure [Right Arm] Blood Pressure Mean 109 Blood Pressure Mean [Right Arm] Pulse Oximetry Oxygen Delivery Method Sepsis New/Unexplained Change in Mental Status Sepsis Action Taken by Nursing 03/17/23 14:32 03/17/23 14:33 03/17/23 14:33 Temperature Temperature Source Pulse Rate 92 H 88 Pulse Rate [Apical] Pulse Rate from SpO2 Sensor Respiratory Rate 22 26 H Respiratory Effort / Characteristics Blood Pressure 150/67 H Blood Pressure [Right Arm] Blood Pressure Mean 94 Blood Pressure Mean [Right Arm] Pulse Oximetry Oxygen Delivery Method Sepsis New/Unexplained Change in Mental Status Sepsis Action Taken by Nursing 03/17/23 14:45 03/17/23 14:45 03/17/23 15:14 Temperature 37.2 C Temperature Source Oral Pulse Rate 86 Pulse Rate [Apical] Pulse Rate from SpO2 Sensor Respiratory Rate 23 Respiratory Effort / Characteristics Blood Pressure 149/54 H Blood Pressure [Right Arm] Blood Pressure Mean 85 Blood Pressure Mean [Right Arm] Pulse Oximetry Oxygen Delivery Method Sepsis New/Unexplained Change in Mental Status Sepsis Action Taken by Nursing 03/17/23 15:00 03/17/23 15:15 03/17/23 15:15 Temperature Temperature Source Pulse Rate 87 82 Pulse Rate [Apical] Pulse Rate from SpO2 Sensor 82 Respiratory Rate 18 21 Respiratory Effort / Characteristics Blood Pressure 149/89 H Blood Pressure [Right Arm] Blood Pressure Mean 109 Blood Pressure Mean [Right Arm] Pulse Oximetry 96 Oxygen Delivery Method Sepsis New/Unexplained Change in Mental Status Sepsis Action Taken by Nursing 03/17/23 15:30 Temperature Temperature Source Pulse Rate 83 Pulse Rate [Apical] Pulse Rate from SpO2 Sensor Respiratory Rate 24 Respiratory Effort / Characteristics Blood Pressure Blood Pressure [Right Arm] Blood Pressure Mean Blood Pressure Mean [Right Arm] Pulse Oximetry Oxygen Delivery Method Sepsis New/Unexplained Change in Mental Status Sepsis Action Taken by Nursing Laboratory Data 03/17/23 11:18 03/17/23 11:18 Lab Results 03/17/23 03/17/23 03/17/23 Range/Units 11:18 11:18 11:18 WBC 9.02 (4.8-10.8) K/ul RBC 4.08 L (4.20-5.40) M/uL Hgb 11.7 L (12.0-16.0) g/dl Hct 35.5 L (37.0-47.0) % MCV 87.0 (80.0-100.0) fL MCH 28.7 (25.0-34.0) pg MCHC 33.0 (32.0-36.0) g/dL RDW Std Deviation 46.8 H (36.4-46.3) fL RDW Coeff of Galileo 14.6 H (11.5-14.5) % Plt Count 189 (130-400) K/uL MPV 10.4 (9.4-12.4) fL Immature Gran % (Auto) 0.4 % Neut % (Auto) 95.2 % Lymph % (Auto) 0.9 % Barnwell % (Auto) 2.3 % Eos % (Auto) 1.1 % Baso % (Auto) 0.1 % Neut # (Auto) 8.58 H (1.40-6.50) K/uL Lymph # (Auto) 0.08 L (1.2-3.4) K/uL Barn[place] # (Auto) 0.21 (0.11-0.59) K/uL Eos # (Auto) 0.10 (0-0.50) K/uL Baso # (Auto) 0.01 (0-0.2) K/uL Immature Gran # (Auto) 0.04 (0.01-0.20) K/uL Sodium 137 (136-145) mmol/L Potassium 3.4 L (3.5-5.1) mmol/L Chloride 101 (98-107) mmol/L Carbon Dioxide 23 (21-32) mmol/L Anion Gap 13 H (3-11) BUN 28 H (6-23) mg/dl Creatinine 1.16 (0.6-1.2) mg/dl Est Cr Clr Drug Dosing 36.4 ml/min Est GFR ( Amer) 51.9 ml/min Est GFR (Non-Af Amer) 44.7 ml/min BUN/Creatinine Ratio 24.1 H (10-20) Glucose 109 H (70-99(Fasting)) mg/dl Lactate (0.4-2.0) mmol/L Calcium 9.3 (8.6-10.3) mg/dl Magnesium 1.4 L (1.7-2.4) mg/dl Total Bilirubin 0.5 (0.2-1.0) mg/dl Direct Bilirubin 0.0 (0-0.2) mg/dl AST 15 (13-39) U/L ALT 12 (7-52) U/L Alkaline Phosphatase 67 (34-104) U/L Troponin I High Sens 6.3 (0-14) pg/ml Total Protein 7.2 (6.0-8.3) gm/dl Albumin 3.8 (3.4-5.0) gm/dl Procalcitonin 0.21 (0-0.5) ng/ml Urine Color Urine Appearance (Clear) Urine pH (4.5-7.5) Ur Specific Dale (1.000-1.030) Urine Protein (Negative) Urine Glucose (UA) (Negative) Urine Ketones (Negative) Urine Blood (Negative) Urine Nitrite (Negative) Urine Bilirubin (Negative) Urine Urobilinogen (Negative) Ur Leukocyte Esterase (Negative) Urine WBC (Auto) (0-5) /hpf Urine RBC (Auto) (0-4) /hpf U Hyaline Cast (Auto) (0-5) /lpf U Epithel Cells (Auto) (0-5) /lpf Urine Bacteria (Auto) (Negative) 03/17/23 03/17/23 03/17/23 Range/Units 11:20 12:51 13:13 WBC (4.8-10.8) K/ul RBC (4.20-5.40) M/uL Hgb (12.0-16.0) g/dl Hct (37.0-47.0) % MCV (80.0-100.0) fL MCH (25.0-34.0) pg MCHC (32.0-36.0) g/dL RDW Std Deviation (36.4-46.3) fL RDW Coeff of Galileo (11.5-14.5) % Plt Count (130-400) K/uL MPV (9.4-12.4) fL Immature Gran % (Auto) % Neut % (Auto) % Lymph % (Auto) % Barnwell % (Auto) % Eos % (Auto) % Baso % (Auto) % Neut # (Auto) (1.40-6.50) K/uL Lymph # (Auto) (1.2-3.4) K/uL Barnwell # (Auto) (0.11-0.59) K/uL Eos # (Auto) (0-0.50) K/uL Baso # (Auto) (0-0.2) K/uL Immature Gran # (Auto) (0.01-0.20) K/uL Sodium (136-145) mmol/L Potassium (3.5-5.1) mmol/L Chloride (98-107) mmol/L Carbon Dioxide (21-32) mmol/L Anion Gap (3-11) BUN (6-23) mg/dl Creatinine (0.6-1.2) mg/dl Est Cr Clr Drug Dosing ml/min Est GFR ( Amer) ml/min Est GFR (Non-Af Amer) ml/min BUN/Creatinine Ratio (10-20) Glucose (70-99(Fasting)) mg/dl Lactate 4.1 H* 2.2 H* (0.4-2.0) mmol/L Calcium (8.6-10.3) mg/dl Magnesium (1.7-2.4) mg/dl Total Bilirubin (0.2-1.0) mg/dl Direct Bilirubin (0-0.2) mg/dl AST (13-39) U/L ALT (7-52) U/L Alkaline Phosphatase (34-104) U/L Troponin I High Sens (0-14) pg/ml Total Protein (6.0-8.3) gm/dl Albumin (3.4-5.0) gm/dl Procalcitonin (0-0.5) ng/ml Urine Color Yellow Urine Appearance Clear (Clear) Urine pH 7.0 (4.5-7.5) Ur Specific Dale 1.015 (1.000-1.030) Urine Protein Negative (Negative) Urine Glucose (UA) Negative (Negative) Urine Ketones Negative (Negative) Urine Blood Trace H (Negative) Urine Nitrite Negative (Negative) Urine Bilirubin Negative (Negative) Urine Urobilinogen Negative (Negative) Ur Leukocyte Esterase 2+ H (Negative) Urine WBC (Auto) >30 H (0-5) /hpf Urine RBC (Auto) 5-10 H (0-4) /hpf U Hyaline Cast (Auto) 1-5 (0-5) /lpf U Epithel Cells (Auto) 0-5 (0-5) /lpf Urine Bacteria (Auto) Negative (Negative) Administered Medications Sodium Chloride (Nss 1000ml) 1,000 mls @ 80 mls/hr IV .[id number] KELSIE Stop: 03/18/23 06:32 Last Admin: 03/17/23 18:15 Dose: 80 mls/hr Documented By: TALYA Discontinued Medications Sodium Chloride (Nss 1000ml) 1,000 mls @ 999 mls/hr IV .Q1H1M KELSIE Stop: 03/17/23 12:30 Last Infusion: 03/17/23 12:56 Dose: 0 mls/hr Documented By: Admin: 03/17/23 11:31 Dose: 999 mls/hr Documented By: TIANA Cefepime HCl (Maxipime) 2,000 mg in 20 mls @ 5 mls/min IV NOW STA; Protocol Stop: 03/17/23 11:27 Last Admin: 03/17/23 11:31 Dose: 5 mls/min Documented By: TIANA Famotidine (Pepcid 20mg Iv Push) 20 mg in 5 mls @ 2.5 mls/min IV NOW STA Stop: 03/17/23 12:28 Last Admin: 03/17/23 12:45 Dose: 2.5 mls/min Documented By: TIANA Sodium Chloride (Nss 1000ml) 1,000 mls @ 999 mls/hr IV .Q1H1M ONE Stop: 03/17/23 13:27 Last Infusion: 03/17/23 14:53 Dose: 0 mls/hr Documented By: Admin: 03/17/23 12:45 Dose: 999 mls/hr Documented By: TIANA Magnesium Sulfate/Dextrose (Magnesium Sulfate / D5w) 1 gm in 100 mls @ 100 mls/hr IV NOW STA Stop: 03/17/23 14:06 Last Infusion: 03/17/23 15:43 Dose: 0 mls/hr Documented By: Admin: 03/17/23 14:37 Dose: 100 mls/hr Documented By: TIANA Magnesium Sulfate/Dextrose (Magnesium Sulfate / D5w) 1 gm in 100 mls @ 50 mls/hr IV Q2H KELSIE Stop: 03/17/23 19:44 Last Admin: 03/17/23 18:14 Dose: 50 mls/hr Documented By: Infusion: 03/17/23 18:04 Dose: 0 mls/hr Documented By: Admin: 03/17/23 15:53 Dose: 50 mls/hr Documented By: TIANA Ioversol (Optiray 320 100ml) 89 ml IV ONCE ONE Stop: 03/17/23 13:45 Last Admin: 03/17/23 13:36 Dose: 89 ml Documented By: ABDIEL Ondansetron HCl (Ondansetron Inj 2 Mg/Ml 2 Ml Vial) 4 mg IV NOW STA Stop: 03/17/23 12:28 Last Admin: 03/17/23 12:47 Dose: 4 mg Documented By: TIANA Potassium Chloride (Potassium Chloride Crtab 20 Meq Tabcr) 40 meq PO NOW STA Stop: 03/17/23 18:04 Last Admin: 03/17/23 19:26 Dose: Not Given Documented By: [facility] [place] Imaging Data Radiologist's Impression: Chest X-Ray 03/17/23 11:22 XR chest 1V portable CLINICAL HISTORY: Sepsis TECHNIQUE: Single frontal radiograph of the chest was obtained. Comparison: Comparison is made to chest radiograph 06/21/2021 FINDINGS: No lines and tubes are seen. Calcified aortic knob is seen. The lungs are clear. Biapical scarring is seen. No evidence of pleural effusion or pneumothorax. IMPRESSION: No acute abnormalities and in particular no radiographic evidence of pneumonia. ACT 112: Negative or not required by law. Electronically signed by: Ty Dunbar M.D. 03/17/2023 12:04 PM Abdomen/Pelvis CT 03/17/23 13:18 CT abd pelvis IV con only CLINICAL HISTORY: worsening UTI TECHNIQUE: Helical axial images of the abdomen and pelvis were obtained and displayed. Automated dose lowering techniques and/or adjustment according to patient size were utilized for this exam. This exam was performed with intravenous contrast. CT DOSE: 732.66 mGy.cm COMPARISON: Comparison is made to CT abdomen pelvis 06/21/2021 FINDINGS: Lower chest: Bilateral lower lung scarring versus atelectasis is seen. Liver: Unremarkable. No focal lesions are seen. Gallbladder and biliary tree: No calcified gallstones. Normal caliber wall. No intra- or extrahepatic biliary ductal dilation. Pancreas: Unremarkable, no focal lesions. Spleen: Splenule is incidentally noted. Adrenals: Unremarkable. Kidneys and ureters: Unremarkable. Bladder: Diffuse homogeneous wall thickening is seen. Reproductive organs: Patient is status post hysterectomy. Bowel: Diverticulosis is seen without evidence of diverticulitis. The appendix is unremarkable. A hiatal hernia is seen. Lymph nodes Retroperitoneal: Unremarkable. Pelvic: Unremarkable. Mesenteric: Unremarkable. Peritoneum: Normal. Vessels: Unremarkable. Abdominal wall: Bilateral fat-containing inguinal hernias are seen. An umbilical hernia is seen. Bones: Degenerative changes in the visualized spine. IMPRESSION: 1. Diverticulosis is seen without evidence of diverticulitis. 2. Thickening of the bladder wall is nonspecific but may represent cystitis. No CT evidence of pyelonephritis. 3. Additional findings as above. ACT 112: Negative or not required by law. Electronically signed by: Ty Dunbar M.D. 03/17/2023 2:25 PM Discharge Plan Visit Data Chief Complaint: Urinary Symptoms Stated Complaint: UTI,DOC REF ED Provider: Anabelle Thomason Discharge Problem: Nausea & vomiting, Acute UTI (urinary tract infection), Acidosis, lactic Patient Disposition: Admitted As Inpatient Discharge Instructions Interventions: ED Discharge Assessment Last Done: 03/17/23 17:23
--- NOTE | 2023-03-17 12:05 | XRay Report ---
XR chest 1V portable CLINICAL HISTORY: Sepsis TECHNIQUE: Single frontal radiograph of the chest was obtained. Comparison: Comparison is made to chest radiograph 06/21/2021 FINDINGS: No lines and tubes are seen. Calcified aortic knob is seen. The lungs are clear. Biapical scarring is seen. No evidence of pleural effusion or pneumothorax. IMPRESSION: No acute abnormalities and in particular no radiographic evidence of pneumonia. ACT 112: Negative or not required by law. Electronically signed by: Ty Dunbar M.D. 03/17/2023 12:04 PM
[2023-03-17] MEDS ORDERED: SODIUM CHLORIDE 0.9% 1000ML 1,000 ML IV ONE (12:27)
[2023-03-17] MEDS ORDERED: FAMOTIDINE 20MG IV PUSH 20 MG/5 ML SYR IV STA (12:27)
[2023-03-17] MEDS ORDERED: ONDANSETRON INJ 2 MG/ML 2 ML VIAL IV STA (12:27)
[2023-03-17 12:40] LABS: Hematocrit (blood only) 35.5 % (37.0-47.0); Hemoglobin 11.7 g/dl (12.0-16.0); Mean Corpuscular Hemoglobin 28.7 pg (25.0-34.0); Mean Platelet Volume 10.4 fL (9.4-12.4); Platelet Count 189 K/uL (130-400); RDW Coefficient of Variation 14.6 % (11.5-14.5); RDW Standard Deviation 46.8 fL (36.4-46.3); Red Blood Count 4.08 M/uL (4.20-5.40); White Blood Count 9.02 K/ul (4.8-10.8)
[2023-03-17 12:58] LABS: Basophils # (auto) 0.01 K/uL (0-0.2); Basophils % (auto) 0.1 %; Eosinophils % (auto) 1.1 %; Immature Granulocytes # (auto) 0.04 K/uL (0.01-0.20); Immature Granulocytes % (auto) 0.4 %; Lymphocytes # (auto) 0.08 K/uL (1.2-3.4); Lymphocytes % (auto) 0.9 %; Monocytes # (auto) 0.21 K/uL (0.11-0.59); Monocytes % (auto) 2.3 %; Neutrophils # (auto) 8.58 K/uL (1.40-6.50); Neutrophils % (auto) 95.2 %
[2023-03-17 13:03] LABS: Albumin Level 3.8 gm/dl (3.4-5.0); Bilirubin,Total 0.5 mg/dl (0.2-1.0); Calcium 9.3 mg/dl (8.6-10.3); Magnesium 1.4 mg/dl (1.7-2.4); Potassium 3.4 mmol/L (3.5-5.1)
[2023-03-17] MEDS ORDERED: MAGNESIUM SULFATE / D5W 1 GM/100 ML BAG IV STA (13:07)
[2023-03-17 13:09] LABS: BUN Creatinine Ratio 24.1 (10-20); Creatinine Clr Calc Pharmacy 36.4 ml/min; Est GFR (African American) 51.9 ml/min; Est GFR (Non-African American) 44.7 ml/min; Total Protein 7.2 gm/dl (6.0-8.3)
[2023-03-17 13:12] LABS: Troponin I High Sensitivity 6.3 pg/ml (0-14)
[2023-03-17 13:13] LABS: Appearance Urine Clear (Clear); Bacteria Urine Automated Negative (Negative); Bilirubin Urine Negative (Negative); Blood Urine Trace (Negative); Color Urine Yellow; Epithelial Cell Urine Auto 0-5 /lpf (0-5); Glucose Urine UA Negative (Negative); Ketones Urine Negative (Negative); Leukocyte Esterase Urine 2+ (Negative); Nitrite Urine Negative (Negative); Protein Urine Negative (Negative); Specific Gravity Urine 1.015 (1.000-1.030); Urobilinogen Urine Negative (Negative); WBC Urine Automated >30 /hpf (0-5)
[2023-03-17] MEDS ORDERED: OPTIRAY 320 100ml IV ONE (13:44)
--- NOTE | 2023-03-17 14:26 | CT Scan Report ---
CT abd pelvis IV con only CLINICAL HISTORY: worsening UTI TECHNIQUE: Helical axial images of the abdomen and pelvis were obtained and displayed. Automated dose lowering techniques and/or adjustment according to patient size were utilized for this exam. This e xam was performed with intravenous contrast. CT DOSE: 732.66 mGy.cm COMPARISON: Comparison is made to CT abdomen pelvis 06/21/2021 FINDINGS: Lower chest: Bilateral lower lung scarring versus atelectasis is seen. Liver: Unremarkable. No focal lesions are seen. Gallbladder and biliary tree: No calcified gallstones. Normal caliber wall. No intra- or extrahepatic biliary ductal dilation. Pancreas: Unremarkable, no focal lesions. Spleen: Splenule is incidentally noted. Adrenals: Unremarkable. Kidneys and ureters: Unremarkable. Bladder: Diffuse homogeneous wall thickening is seen. Reproductive organs: Patient is status post hysterectomy. Bowel: Diverticulosis is seen without evidence of diverticulitis. The appendix is unremarkable. A hia genny hernia is seen. Lymph nodes Retroperitoneal: Unremarkable. Pelvic: Unremarkable. Mesenteric: Unremarkable. Peritoneum: Normal. Vessels: Unremarkable. Abdominal wall: Bilateral fat-containing inguinal hernias are seen. An umbilical hernia is seen. Bones: Degenerative changes in the visualized spine. IMPRESSION: 1. Diverticulosis is seen without evidence of diverticulitis. 2. Thickening of the bladder wall is nonspecific but may represent cystitis. No CT evidence of pyelo nephritis. 3. Additional findings as above. ACT 112: Negative or not required by law. Electronically signed by: Ty Dunbar M.D. 03/17/2023 2:25 PM
[2023-03-17] MEDS: MAGNESIUM SULFATE / D5W 1 GM/100 ML BAG IV SCH ×2 (15:53→18:14)
--- NOTE | 2023-03-17 16:09 | History & Physical Report ---
Date of Service March 17, 2023 Assessment & Plan (1) Acute UTI (urinary tract infection): Plan: Acute/unstable-mod risk - Admit to med/surg unit - Reviewed CBC, does NOT meet SIRS/Sepsis criteria, no fever, leukocytosis/leukopenia - Clear liquid diet to start and AAT - Given Cefepime in ED, last UTI was e.coli with resistance to pcn, fq, and sulfa - Will change to Rocephin 2g IV daily to start tomorrow AM - Urine and blood cultures have been collected - Urine cx from 03/16 reviewed with prelim of GNB - Await final culture and tailor abx accordingly (2) Nausea & vomiting: Plan: Acute/stable - low risk - Likely d/t macrobid which will be stopped - Change abx as outlined above - Given 2L of NSS and will add mIVF of NSS at 80 ml/hr x 1 liter - Zofran PRN (3) Hypokalemia: Plan: Acute/stable - low risk - Reviewed cmp, potassium 3.4 - Supplement with KCl 40meq po x1 and repeat in AM (4) Hypomagnesemia: Plan: Acute/unstable - low to mod risk - Reviewed mag, 1.4, Mag Sulfate 1g IV ordered/given in ED - Will give another 2g of Mag Sulfate - Consider starting on oral replacement - Repeat level in AM (5) Chronic kidney disease, stage III (moderate): Plan: Chronic/stable - Baseline creat 1.1-1.3 - Currently within baseline - Renally adjust meds when needed (6) Hypertension: Plan: Chronic/stable - On Hydralazine and Triamterene at home - Can resume as prescribed (7) Rheumatoid arthritis: Plan: Chronic/stable - Takes Cimzia and chronic prednisone - Do not feel that she requires stress dose steroids at this time as she is not septic Plan Lovenox will be added for DVT ppx. OOB as tolerated. Plan has been d/w Dr. Valenzuela who will also see and evaluate this patient. Further orders will be imp lemented as warranted. History of Present Illness Chief Complaint: N/V Primary Care Provider: Alexandra Wilkes MD Meghana Jaimes is a 77 yo F with a pmhx of HTN, HLD, and RA who presents to the ER today c/o urinary symptoms x 1.5 weeks. Patient reports experiencing urinary frequency primarily with cloudy and malodorous urine and was seen on 03/16 by her PCP. A urine dip was performed in the office which appeared to be grossly infected positive nitrites, small leukocyte esterase, >30 wbcs and 4+ bacteria and sample was sent for culture and sensitivity which has a preliminary result of greater than 100,000 colonies of gram negative bacilli. She was started on Macrobid by her PCP and took a dose yesterday after lunch and before bed around 1130pm. She reports that she woke up this AM with nausea and vomiting and subsequently presented to the ER. She denies fever, but has had chills/rigors. She denies abd pain or diarrhea. No dysuria or hematuria. Her ER work up revealed a normal wbc count without shift, a low mag of 1.4, and an elevated lactate initially of 4.4. She was hydrated with 2L of NSS and her repeat lactate improved to 2.2. She has had no vomiting for the past hour and is now requesting to eat or drink something. She otherwise has no complaints. She has received a dose of IV Cefepime 2g and has been referred to the hospitalists for admission. Allergies Allergy/AdvReac Type Severity Reaction Status Date / Time fentanyl Allergy Severe throat Verified 03/16/23 08:38 closed,itchy Sulfa (Sulfonamide Allergy Unknown Rash Verified 03/16/23 08:38 Antibiotics) Penicillins Allergy Verified 03/16/23 08:38 ciprofloxacin [From Cipro] AdvReac Severe Nausea & Verified 03/16/23 08:38 vomiting Home Medications Medication Instructions Recorded Confirmed Type prednisone 1 mg tablet 2 mg PO QAM 01/05/19 03/17/23 History acetaminophen 500 mg tablet 1,000 mg PO Q6H PRN Pain 03/06/19 03/17/23 History (Acetaminophen Extra Strength) Saccharomyces boulardii 250 mg 250 mg PO DAILY 07/10/19 03/17/23 History capsule (Florastor) certolizumab pegol 400 mg/2 mL 400 mg subcut Q4WK 06/21/21 03/17/23 History (200 mg/mL x2) subcutaneous syringe kit (Cimzia) triamterene 75 1 tab PO QAM #90 tabs 03/03/22 03/17/23 Rx mg-hydrochlorothiazide 50 mg tablet (Maxzide) ergocalciferol (vitamin D2) 1,250 50,000 unit PO MONTHLY #14 caps 03/10/2203/08 Rx mcg (50,000 unit) capsule (Vitamin D2) hydralazine 100 mg tablet 100 mg PO TID #90 tabs 04/30/22 03/17/23 Rx atorvastatin 20 mg tablet 20 mg PO DAILY #30 tabs 06/10/22 03/17/23 Rx potassium chloride 10 mEq 10 meq PO BID #60 tabs 11/26/22 03/17/23 Rx tablet,extended release (Klor-Con) nitrofurantoin 100 mg PO BID 5 days #10 caps 03/16/23 03/17/23 Rx monohydrate/macrocrystals 100 mg capsule (Macrobid) calcipotriene 0.005 % scalp 1 applic topical DIRECTED PRN 03/17/23 03/17/23 History solution Dry Skin Past Med/Surg History Medical History Hx of sepsis Admitted [facility] 01/05 - 01/09 for septic UTI/NOHELIA Hx: UTI (urinary tract infection) recurrent - sent to urologist - found cyst in bladder which is current issue Hypertension H/O very labile severe HTN--found to be 2/2 JOSH, now s/p RA stent placement, continues on diuretic. Hypertension Lyme disease (03/25/13) H/O, went undiagnosed for a while 2/2 underlying psoriatic arthritis. On prednisone therapy Chronically for psoriatic arthritis. Psoriatic arthritis Surgical History H/O bladder repair surgery Bladder tack H/O: hysterectomy History of kidney surgery History of renal stent Family History Father Family history of diabetes mellitus Alzheimer disease Arthritis Father Arthritis Alzheimer disease Mother Myocardial infarction Denies family history of Ovarian cancer Prostate cancer Breast cancer Colorectal cancer Social History Smoking Status: Never smoker Second Hand Exposure: No; Do You Dip or Chew Tobacco: No; Hx Alcohol Use: No Hx Substance Use: No Preferred Language: Japanese Communication Ability: Effective Visual Impairment: No Limitations Hearing Ability: Use of Hearing Aid Saw Man Required: No Beliefs That Will Affect Care: None marital status: / Current Living Situation: Family Current Living Situation Comment: lives with daughter current occupational status: retired How many Children do You have: 4 Feels Safe at Home: Yes Safety Concerns: Feels Safe At This Time Childhood Exposure to Second-Hand Smoke: No Diet: regular caffeine: Yes during the past year weight has: remained stable Dental Care, Regularly: Yes Physical Activity Frequency: Daily Seatbelt Use: always Sunscreen Use: Yes Assistive Devices: Denture - Upper and Hearing Aid - Bilateral Physical Exam Physical Exam: GENERAL: 77 yo well-developed, well-nourished elderly WF. AAOx4. NAD. LUNGS: Clear to auscultation bilaterally w/o W/R/R. CARDIOVASCULAR: Regular rate and rhythm, 2/6 SIMON. ABDOMEN: Soft, non-tender and non-distended. BS normoactive x 4 quad. EXTREMITIES: No edema. Non-tender. Peripheral pulses +2/4. Results & Data Results & Data Vital Signs (Past 12 Hours) Vital Signs Temp Pulse Pulse Resp BP BP Pulse Ox 03/17/23 15:45 80 20 03/17/23 15:45 145/53 H 03/17/23 15:30 83 24 03/17/23 15:15 82 21 96 03/17/23 15:15 149/89 H 03/17/23 15:00 87 18 03/17/23 15:14 37.2 C 03/17/23 14:45 86 23 03/17/23 14:45 149/54 H 03/17/23 14:33 150/67 H 03/17/23 14:33 88 26 H 03/17/23 14:32 92 H 22 03/17/23 14:15 101 H 26 H 03/17/23 14:15 164/82 H 03/17/23 14:00 91 H 20 03/17/23 14:00 167/70 H 03/17/23 13:47 174/58 H 03/17/23 13:47 86 17 03/17/23 13:30 30 H 03/17/23 13:30 156/129 H 03/17/23 13:15 158/62 H 03/17/23 13:15 18 03/17/23 13:00 26 H 03/17/23 13:00 161/62 H 03/17/23 12:45 85 25 H 03/17/23 12:45 169/74 H 03/17/23 12:30 90 19 03/17/23 12:30 166/59 H 03/17/23 12:15 157/57 H 03/17/23 12:15 89 20 03/17/23 12:00 29 H 03/17/23 12:00 143/104 H 03/17/23 11:46 95 H 24 95 03/17/23 11:46 182/93 H 03/17/23 11:36 88 24 96 03/17/23 11:36 163/80 H 03/17/23 11:30 88 28 H 03/17/23 11:19 88 16 98 03/17/23 12:19 89 03/17/23 11:35 98 03/17/23 11:16 36.4 C L 90 15 184/68 H 97 03/17/23 10:49 37.1 C 105 H 24 149/62 H 100 Laboratory Results 03/17/23 11:18 03/17/23 11:18 Diagnostic Findings Chest X-Ray 03/17/23 11:22 XR chest 1V portable CLINICAL HISTORY: Sepsis TECHNIQUE: Single frontal radiograph of the chest was obtained. Comparison: Comparison is made to chest radiograph 06/21/2021 FINDINGS: No lines and tubes are seen. Calcified aortic knob is seen. The lungs are clear. Biapical scarring is seen. No evidence of pleural effusion or pneumothorax. IMPRESSION: No acute abnormalities and in particular no radiographic evidence of pneumonia. ACT 112: Negative or not required by law. Electronically signed by: Ty Dunbar M.D. 03/17/2023 12:04 PM Abdomen/Pelvis CT 03/17/23 13:18 CT abd pelvis IV con only CLINICAL HISTORY: worsening UTI TECHNIQUE: Helical axial images of the abdomen and pelvis were obtained and displayed. Automated dose lowering techniques and/or adjustment according to patient size were utilized for this exam. This exam was performed with intravenous contrast. CT DOSE: 732.66 mGy.cm COMPARISON: Comparison is made to CT abdomen pelvis 06/21/2021 FINDINGS: Lower chest: Bilateral lower lung scarring versus atelectasis is seen. Liver: Unremarkable. No focal lesions are seen. Gallbladder and biliary tree: No calcified gallstones. Normal caliber wall. No intra- or extrahepatic biliary ductal dilation. Pancreas: Unremarkable, no focal lesions. Spleen: Splenule is incidentally noted. Adrenals: Unremarkable. Kidneys and ureters: Unremarkable. Bladder: Diffuse homogeneous wall thickening is seen. Reproductive organs: Patient is status post hysterectomy. Bowel: Diverticulosis is seen without evidence of diverticulitis. The appendix is unremarkable. A hiatal hernia is seen. Lymph nodes Retroperitoneal: Unremarkable. Pelvic: Unremarkable. Mesenteric: Unremarkable. Peritoneum: Normal. Vessels: Unremarkable. Abdominal wall: Bilateral fat-containing inguinal hernias are seen. An umbilical hernia is seen. Bones: Degenerative changes in the visualized spine. IMPRESSION: 1. Diverticulosis is seen without evidence of diverticulitis. 2. Thickening of the bladder wall is nonspecific but may represent cystitis. No CT evidence of pyelonephritis. 3. Additional findings as above. ACT 112: Negative or not required by law. Electronically signed by: Ty Dunbar M.D. 03/17/2023 2:25 PM Code Status & VTE Plan Code Status Amenable to cpr/shock/meds but declines intubation/vent Supervising Physician Co-Signing Physician Notes I personally saw and examined the patient. I verified all serrano points and agree with Sydney Ibarra PA-C with the following exceptions and/or additions: 77 year old female urinary frequency, nausea, vomiting. Started on macrobid by PCP. Currently main concern is a lot of chills despite feeling hot to touch she feel she needs more blankets. O/E A&Ox3, HS RRR, no murmurs, Chest CTAB, Abdo mild suprapubic pain, without guarding or rebound tenderness, no CVA tenderness A/P UTI - GNB on urine culture as outpatient, no prior UTI resistant to ceftriaxone, start ceftriaxone. Replace electrolytes as above PG Care Time/CCT Total # of Minutes Spent Total Time Spent with Patient: Total time spent is greater than 50% in coordination of care (as documented) at patient's floor/unit and/or counseling patient: Coding Level of Care Code 68582 INT INP/OBS CARE 3/75MIN Diagnoses Acute UTI (urinary tract infection) N39.0 Nausea & vomiting R11.2 Hypokalemia E87.6 Hypomagnesemia E83.42 Chronic kidney disease, stage III (moderate) N18.30 Hypertension I10 Rheumatoid arthritis M06.9
[2023-03-17 16:40] LABS: Influenza A virus by PCR Negative (Neg); Influenza B virus by PCR Negative (Neg); RSV by PCR Negative (Neg); SARS CoV2 RNA(COVID-19) Ceph NEGATIVE (Negative)
[2023-03-17] MEDS ORDERED: MAGNESIUM HYDROXIDE SUSP 30 ML UDC PO PRN (18:03)
[2023-03-17] MEDS ORDERED: ALUMINUM/MAGNESIUM SUSP 30 ML UDC PO PRN (18:03)
[2023-03-17] MEDS ORDERED: POTASSIUM CHLORIDE CRTAB 20 MEQ TABCR PO STA (18:03)
[2023-03-17] MEDS ORDERED: POLYETHYLENE (MIRALAX) 17 GM PACK PO PRN (18:03)
[2023-03-17] MEDS ORDERED: ONDANSETRON INJ 2 MG/ML 2 ML VIAL IV PRN (18:03)
[2023-03-17] MEDS ORDERED: cefTRIAXone SODIUM 2,000 MG in DEXTROSE 5% 50 ML IV SCH (19:00)
[2023-03-17] MEDS: POTASSIUM CHLORIDE 10 MEQ TABCR PO SCH (20:50)
[2023-03-17] MEDS: hydrALAZINE TAB 50 MG TAB PO SCH (20:51)
[2023-03-17] MEDS: ACETAMINOPHEN 325 MG TAB PO PRN (23:29)
[2023-03-18] MEDS: ACETAMINOPHEN 325 MG TAB PO PRN ×2 (05:17→11:26)
--- NOTE | 2023-03-18 05:47 | Electrocardiogram Report ---
Test Reason : Blood Pressure : / mmHG Vent. Rate : 093 BPM Atrial Rate : 093 BPM P-R Int : 170 ms QRS Dur : 076 ms QT Int : 356 ms P-R-T Axes : 069 036 -38 degrees QTc Int : 443 ms Poor data quality, interpretation may be adversely affected Normal sinus rhythm with sinus arrhythmia Nonspecific ST and T wave abnormality Abnormal ECG When compared with ECG of 21-JUN-2021 06:48, Vent. rate has increased BY 33 BPM T wave inversion now evident in Lateral leads Confirmed by Reji Raya ([id number]) on 03/18/2023 5:46:55 AM Referred By: REFERRED SELF Confirmed By:Reji Raya
--- NOTE | 2023-03-18 07:49 | Hospitalist Progress Note ---
Date of Service March 18, 2023 Assessment & Plan Admission and Anticipated Discharge Date Admission Date: March 17, 2023 Review of Systems Review of Systems: All systems reviewed & are unremarkable except as noted in HPI & below Physical Exam Physical Exam: General: No acute distress HEENT: PERRLA. Normal conjunctiva, anicteric sclera. Oropharynx normal. Respiratory: Normal respiratory effort, CTABL. Cardiovascular: RRR without murmurs, gallops, or rubs. No edema. GI: Soft abdomen with normal bowel sounds heard on auscultation. Nontender x4 quadrants Neuro: Alert and oriented x3. Results & Data Results & Data Vital Signs (Past 12 Hours) Vital Signs Temp Pulse Resp BP Pulse Ox O2 Del Method 03/17/23 21:01 37.1 C 86 18 145/56 H 94 Room Air
[2023-03-18 07:50] LABS: Basophils # (auto) 0.03 K/uL (0-0.2); Basophils % (auto) 0.4 %; Eosinophils # (auto) 0.29 K/uL (0-0.50); Eosinophils % (auto) 4.1 %; Hematocrit (blood only) 29.6 % (37.0-47.0); Hemoglobin 9.7 g/dl (12.0-16.0); Immature Granulocytes # (auto) 0.02 K/uL (0.01-0.20); Immature Granulocytes % (auto) 0.3 %; Lymphocytes # (auto) 0.15 K/uL (1.2-3.4); Lymphocytes % (auto) 2.1 %; Mean Corpuscular Hemoglobin 28.4 pg (25.0-34.0); Mean Corpuscular Hgb Conc 32.8 g/dL (32.0-36.0); Mean Corpuscular Volume 86.8 fL (80.0-100.0); Mean Platelet Volume 10.4 fL (9.4-12.4); Monocytes # (auto) 0.26 K/uL (0.11-0.59); Monocytes % (auto) 3.7 %; Neutrophils # (auto) 6.25 K/uL (1.40-6.50); Neutrophils % (auto) 89.4 %; Platelet Count 147 K/uL (130-400); RDW Coefficient of Variation 14.9 % (11.5-14.5); RDW Standard Deviation 47.6 fL (36.4-46.3); Red Blood Count 3.41 M/uL (4.20-5.40)
[2023-03-18 08:15] LABS: Calcium 7.5 mg/dl (8.6-10.3); Magnesium 2.3 mg/dl (1.7-2.4); Potassium 3.3 mmol/L (3.5-5.1)
[2023-03-18] MEDS ORDERED: POTASSIUM CHLORIDE CRTAB 20 MEQ TABCR PO STA (08:19)
[2023-03-18 08:21] LABS: BUN Creatinine Ratio 18.5 (10-20); Creatinine Clr Calc Pharmacy 31.3 ml/min; Est GFR (African American) 43.2 ml/min; Est GFR (Non-African American) 37.2 ml/min
[2023-03-18] MEDS: POTASSIUM CHLORIDE 10 MEQ TABCR PO SCH (08:36)
[2023-03-18] MEDS: hydrALAZINE TAB 50 MG TAB PO SCH ×2 (08:36→14:11)
[2023-03-18] MEDS ORDERED: TRIAMTERENE/HCTZ 37.5/25MG TAB PO SCH (09:00)
[2023-03-18] MEDS ORDERED: ENOXAPARIN INJ 40 MG/0.4 ML SYR SQ SCH (09:00)
[2023-03-18] MEDS ORDERED: SACCHAROMYCES BOULARDII 250 MG CAP PO SCH (09:00)
[2023-03-18] MEDS ORDERED: ATORVASTATIN 20 MG TAB PO SCH (09:00)
[2023-03-18] MEDS ORDERED: predniSONE 1 MG TAB PO SCH (09:00)
--- NOTE | 2023-03-18 13:30 | Communication Note ---
Date of Service: March 18, 2023 By CMS guidelines, a determination that the admission or continued stay is not medically necessary has been made by a member of the UR committee and a physic january for this hospital stay, therefore a Code 44 will be completed and the Inpatient admission will be changed to outpatient. Shonda Bryson DO
--- NOTE | 2023-03-18 14:19 | Discharge Summary ---
Date of Service March 18, 2023 Admission HPI Per Admitting Provider Meghana Jaimes is a 77 yo F with a pmhx of HTN, HLD, and RA who presents to the ER today c/o urinary symptoms x 1.5 weeks. Patient reports experiencing urinary frequency primarily with cloudy and malodorous urine and was seen on 03/16 by her PCP. A urine dip was performed in the office which appeared to be grossly infected positive nitrites, small leukocyte esterase, >30 wbcs and 4+ bacteria and sample was sent for culture and sensitivity which has a preliminary result of greater than 100,000 colonies of gram negative bacilli. She was started on Macrobid by her PCP and took a dose yesterday after lunch and before bed around 1130pm. She reports that she woke up this AM with nausea and vomiting and subsequently presented to the ER. She denies fever, but has had chills/rigors. She denies abd pain or diarrhea. No dysuria or hematuria. Her ER work up revealed a normal wbc count without shift, a low mag of 1.4, and an elevated lactate initially of 4.4. She was hydrated with 2L of NSS and her repeat lactate improved to 2.2. She has had no vomiting for the past hour and is now requesting to eat or drink something. She otherwise has no complaints. She has received a dose of IV Cefepime 2g and has been referred to the hospitalists for admission. Admission Exam Per Admitting Provider GENERAL: 77 yo well-developed, well-nourished elderly WF. AAOx4. NAD. LUNGS: Clear to auscultation bilaterally w/o W/R/R. CARDIOVASCULAR: Regular rate and rhythm, 2/6 SIMON. ABDOMEN: Soft, non-tender and non-distended. BS normoactive x 4 quad. EXTREMITIES: No edema. Non-tender. Peripheral pulses +2/4. Principal Diagnosis UTI, adverse reaction to Macrobid Discharge Exam General: No acute distress HEENT: PERRLA. Normal conjunctiva, anicteric sclera. Oropharynx normal. Respiratory: Normal respiratory effort, CTABL. Cardiovascular: RRR without murmurs, gallops, or rubs. No pedal edema. GI: Soft abdomen with normal bowel sounds heard on auscultation. Nontender x4 quadrants Neuro: Alert and oriented x3. Discharge Data Allergies Allergy/AdvReac Type Severity Reaction Status Date / Time fentanyl Allergy Severe throat Verified 03/16/23 08:38 closed,itchy Sulfa (Sulfonamide Allergy Unknown Rash Verified 03/16/23 08:38 Antibiotics) Penicillins Allergy Verified 03/16/23 08:38 ciprofloxacin [From Cipro] AdvReac Severe Nausea & Verified 03/16/23 08:38 vomiting Consultations 03/17/23 15:51 ED Decision to Admit Stat Ordered Studies 03/17/23 13:18 CT abd pelvis IV con only Stat Hospital Course (1) Acute UTI (urinary tract infection): Acute/unstable-mod risk - Admit to med/surg unit - Reviewed CBC, does NOT meet SIRS/Sepsis criteria, no fever, leukocytosis/leukopenia - Clear liquid diet to start and AAT - Given Cefepime in ED, last UTI was e.coli with resistance to pcn, fq, and sulfa - Changed to Rocephin 2g IV daily. Received 1 dose. -Discharged home on cefdinir 300 mg bid x7 days. (2) Nausea & vomiting: Plan: Acute/stable - low risk - Likely d/t macrobid which will be stopped - Change abx as outlined above - Given 2L of NSS and will add mIVF of NSS at 80 ml/hr x 1 liter - Zofran PRN (3) Hypokalemia: Plan: Acute/stable - low risk - Reviewed cmp, potassium 3.4 - Supplement with KCl 40meq po x1 and repeat in AM (4) Hypomagnesemia: Plan: Acute/unstable - low to mod risk - Reviewed mag, 1.4. repleted with Mg sulfate x3 g total. - Repeat level wnl. (5) Chronic kidney disease, stage III (moderate): Plan: Chronic/stable - Baseline creat 1.1-1.3 - Currently within baseline - Renally adjust meds when needed (6) Hypertension: Plan: Chronic/stable - On Hydralazine and Triamterene at home - Can resume as prescribed (7) Rheumatoid arthritis: Plan: Chronic/stable - Takes Cimzia and chronic prednisone (2) Nausea & vomiting: (3) Hypokalemia: (4) Hypomagnesemia: (5) Chronic kidney disease, stage III (moderate): (6) Hypertension: (7) Rheumatoid arthritis: Total Time Total Time Spent Total Time Spent (In Minutes): Please see attending attestation. Discharge Plan Discharge Items Patient Disposition: Home - Self-Care Reason For Visit: UTI Discharge Diagnosis: UTI. Reaction to macrobid Activity: Per Instructions section Non-emergency contact: Primary Care Provider Call non-emergency contact if: you have any medication questions, your symptoms worsen and your pain is not controlled Follow-up/Referrals: Alexandra Wilkes MD [Primary Care Provider] - 03/22/23 3:20 pm Diet: Regular Addtl Attending Provider Instructions: Dear Meghana, You were brought to the hospital after worsening abdominal pain and vomiting after you were discovered to have a UTI. We gave you antibiotics to cover your UTI, as well as IV fluids to stabilize you. We also gave you medications to t reat your symptoms. After reviewing the imaging, which was negative, we believe that your symptoms were largely due to a reaction to the antibiotic that you were initially prescribed. You responded well to the newly prescribed antibiotic so we believe you can be safely discharged. Medications * We sent a prescription called cefdinir to your pharmacy. Please take cefdinir 300 mg twice a day for 7 days. Please take your medications as instructed. If you have a similar reaction to the medication like you did with Macrobid, please stop it and contact your primary care physician. You should also never take Macrobid in the future either, as it is poorly tolerated by the kidneys in older patients such as yourself. You should contact your primary care physician to schedule a follow-up appointment within 2 weeks of your discharge. That way they will be apprised of your current health situation. It has been our pleasure to care you here at [facility]. If you have any questions or concerns about your stay, you may contact us at [phone]. Pending Studies at Discharge: No Stand-Alone Forms: My [facility], Smoking Cessation Medications and DC Order Prescriptions: New cefdinir 300 mg capsule 300 mg PO BID 7 Days Qty: 14 0RF Continued triamterene-hydrochlorothiazid [Maxzide] 75-50 mg tablet 1 tab PO QAM Qty: 90 3RF hydralazine 100 mg tablet 100 mg PO TID Qty: 90 5RF atorvastatin 20 mg tablet 20 mg PO DAILY Qty: 30 11RF potassium chloride [Klor-Con 10] 10 mEq tablet extended release 10 meq PO BID Qty: 60 5RF ergocalciferol (vitamin D2) [Vitamin D2] 1,250 mcg (50,000 unit) capsule 50,000 unit PO MONTHLY Qty: 14 0RF Saccharomyces boulardii [Florastor] 250 mg capsule 250 mg PO DAILY prednisone 1 mg tablet 2 mg PO QAM acetaminophen [Acetaminophen Extra Strength] 500 mg Tablet 1,000 mg PO Q6H PRN (Reason: Pain) Cimzia 400 mg/2 mL (200 mg/mL x 2) Syringe Kit 400 mg SUBCUT Q4WK calcipotriene 0.005 % solution 1 applic TOPICAL DIRECTED PRN (Reason: Dry Skin) Discontinued nitrofurantoin monohyd/m-cryst [Macrobid] 100 mg capsule 100 mg PO BID 5 Days Qty: 10 0RF Rx Instructions: must administer with a meal/food Discharge Orders: Discharge Order (Routine); Ordered 03/18/23 Ordered By: Osiel Dong/Other Patient Handouts: Urinary Tract Infections in Women, UTIs Understanding Admission Data Admit Date/Time: 03/17/23 15:45 Attending Provider: Kolby Olmedo Admit Provider: Osmar Valenzuela Primary Care Provider: Alexandra Wilkes Other Providers: Osmar Valenzuela Other Interventions: Discharge Summary Assessment (RN) Last Done: 03/18/23 13:57 Supervising Physician Co-Signing Physician Notes I personally examined the patient and verified all serrano points of history and exam, discussed case, and agree with decision making with Dr Mcfarland Feeling better and would like to go home. No new complaints. Vitals noted, in general she is awake and alert pleasant no distress. HEENT normocephalic atraumatic mucous membranes moist. Breathing unlabored no accessory muscle use good effort. Skin shows no rashes no pallor or icterus. UTIappearing ill, possible early sepsis in an immunocompromised patient (based off of her infection and her SIRS criteria with respiratory rate and heart rate)present on admissionit is quite possible she failed Macrobid due to her age limiting her GFR, at the same time its also possible she just was getting sicker before she had a chance to get better given that she was just started on antibiotics. With hindsight given that her follow-up urine culture shows no growth, the latter seems more possible, but at the same time she did feel ill on the Macrobidso either way changing to cefdinir. Fortunately she improved nicely and is safe/stable for home.
--- NOTE | 2023-03-18 20:17 | Billing Data ---
Date of Service March 18, 2023 Coding Level of Care Code 09183 IN/OBS DISCH 30 MIN/LESS
== END 2023-03-18 14:42 | disposition home or self-care (01) ==
LOC: ED 10:41 → INTOOBSV 15:45 → SUATTDRO 15:45 → 3N 15:45